=== PATIENT | female | born 1980 | race American Indian/Alaskan Native ===

== ENCOUNTER 2016-12-04 22:58 | Emergency (ER) | payer MEDICAID ==
[2016-12-04] MEDS ORDERED: HYDROmorphone 1 MG/ML Syringe IVPUSH ONE (23:25)
[2016-12-04] MEDS ORDERED: LORazepam 2 MG/ML MDV IVPUSH STA (23:26)
[2016-12-04] MEDS ORDERED: Sodium Chloride 0.9% 1,000 ML IV SCH (23:30)
[2016-12-04] MEDS ORDERED: Sodium Chloride 0.9% 10 ML Syringe FLUSH PRN (23:32)
[2016-12-04] MEDS ORDERED: Iopamidol 755 Mg/ML 100 ML Bottle IV SCH (23:45)
[2016-12-04] MEDS ORDERED: Sodium Chloride 0.9% 100 ML IV SCH (23:45)
[2016-12-05] MEDS ORDERED: Ketorolac 30 MG/ML SDV IVPUSH ONE ×2 (00:45→04:00)
[2016-12-05] MEDS ORDERED: Lactated Ringers 1,000 ML IV SCH (01:00)
[2016-12-05 03:28] VITALS: BP 127/73
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
== END 2016-12-05 04:36 | disposition home or self-care (01) ==
LOC: JP.ED 22:58
DX: R07.89 Other chest pain (principal); D64.9 Anemia, unspecified; R01.1 Cardiac murmur, unspecified; F41.9 Anxiety disorder, unspecified; F43.10 Post-traumatic stress disorder, unspecified; F17.200 Nicotine dependence, unspecified, uncomplicated; Z88.1 Allergy status to other antibiotic agents; Z79.899 Other long term (current) drug therapy
CPT/HCPCS: 36415; 71275; 80053; 80305; 81001; 81025; 82803; 83605; 84484; 85025; 86140; 93005; 96361; 96374; 96375; 96376; 99285; G0480; J1170; J1885; J2060; J7030; J7040; J7050; J7120; Q9967

== ENCOUNTER 2016-12-22 11:50 | Emergency (ER) | payer MEDICAID ==
[2016-12-22 12:04] VITALS: BP 132/87
--- NOTE | 2016-12-22 12:49 | EDM.PDOC ---
ED HPI LOWER BACK PAIN/INJURY - General Chief Complaint: Back Pain or Injury Stated Complaint: LEFT LEG PAIN Time Seen by Provider: 12/22/16 12:38 Source: Reports: Patient History Limitations: Reports: No limitations - History of Present Illness INITIAL COMMENTS - FREE TEXT/NARRATIVE: This patient came in complaining of leg pain. I walked into the room and she said, " oh it's you!" She asked if I was going to help her. Ice told her that I would check her over but I wasn't going to give her any narcotics. Please review my previous note on this patient. The patient said if not going to give her pain pills and she's going to go and seek some other doctor who will give her pain medicines. 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 Psychiatric History: Reports: Anxiety, PTSD - Past Surgical History Musculoskeletal Surgical History: Reports: ORIF Other Musculoskeletal Surgeries/Procedures:: left leg Social & Family History - Tobacco Use Smoking Status *Q: Current Every Day Smoker Years of Tobacco use: 3 Packs/Tins Daily: 3 Used Tobacco, but Quit: No Second Hand Smoke Exposure: Yes - Caffeine Use Caffeine Use: Reports: Coffee - Recreational Drug Use Recreational Drug Use: No ED ROS GENERAL - Review of Systems Review Of Systems: Unable To Obtain ED EXAM,LOWER BACK PAIN/INJURY - Physical Exam Exam: See Below Exam Limited By: Other (This patient did not want to be examined) General Appearance: alert, WD/WN, no apparent distress (She does not appear to be in any pain) Neurological: other (She was observed to be moving all extremities) Course - Vital Signs Last Recorded V/S: Last Vital Signs Temp 37.1 C 12/22/16 12:03 Pulse 76 12/22/16 12:03 Resp 18 12/22/16 12:03 BP 132/87 12/22/16 12:03 Pulse Ox Departure - Departure Time of Disposition: 12:48 Disposition: Home, Self-Care 01 Condition: fair Clinical Impression: Leg pain Forms: ED Department Discharge Additional Instructions: Continue using your regular medications. Followup with your doctor of choice for pain medications.
== END 2016-12-22 12:45 | disposition home or self-care (01) ==
LOC: JP.ED 11:50
DX: M79.605 Pain in left leg (principal); R01.1 Cardiac murmur, unspecified; F41.9 Anxiety disorder, unspecified; F17.210 Nicotine dependence, cigarettes, uncomplicated; Z88.1 Allergy status to other antibiotic agents; Z79.899 Other long term (current) drug therapy
CPT/HCPCS: 99283

== ENCOUNTER 2017-01-09 17:28 | Emergency (ER) | payer MEDICAID ==
[2017-01-09 17:41] VITALS: BP 129/54
[2017-01-09] MEDS ORDERED: Ketorolac 60 MG/2 ML SDV IM ONE (18:11)
--- NOTE | 2017-01-09 18:16 | EDM.PDOC ---
[id number] LEG HURTS NOT AN ACCIDENT Time Seen by Provider: 01/09/17 18:11 Source: Reports: Patient History Limitations: Reports: No limitations - History of Present Illness INITIAL COMMENTS - FREE TEXT/NARRATIVE: Pt arrived with sig left knee pain. Occurred When: other ( This has continued to be painful. She had surgery on the knee about 2 years ago and she has metal in her knee. 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 Psychiatric History: Reports: Anxiety, PTSD - Past Surgical History Musculoskeletal Surgical History: Reports: ORIF Other Musculoskeletal Surgeries/Procedures:: left leg Social & Family History - Tobacco Use Smoking Status *Q: Never Smoker Years of Tobacco use: 3 Packs/Tins Daily: 3 Used Tobacco, but Quit: No Second Hand Smoke Exposure: Yes - Caffeine Use Caffeine Use: Reports: Coffee, Energy drinks - Recreational Drug Use Recreational Drug Use: No Review of Systems - Review of Systems Review Of Systems: See Below Constitutional: Reports: no symptoms Eyes: Reports: no symptoms Ears: Reports: no symptoms Nose: Reports: no symptoms Mouth/Throat: Reports: no symptoms Respiratory: Reports: No Symptoms Cardiovascular: Reports: no symptoms GI/Abdominal: Reports: No symptoms Genitourinary: Reports: no symptoms Musculoskeletal: Reports: other (Pain in the left knee) Skin: Reports: no symptoms Trauma Exam - Physical Exam Exam: See Below Text/Narrative:: pt developed pain in the left knee tht is the most severe it has lg in a long time. She may have twisted this in the kitchen. She has not fallen or injured this otherwise. Exam Limited By: No limitations General Appearance: Reports: alert, moderate distress Head: Reports: atraumatic Ears: Reports: normal TMs Nose: Reports: normal inspection Throat/Mouth: Reports: Normal inspection Neck: Reports: non-tender Respiratory Exam: Reports: no respiratory distress Extremities: Reports: other ( left knee is very uncomfortable. This is most tender in the anterior proximal tibia. She is also having pain in post knee area. ) Course - Vital Signs Last Recorded V/S: Last Vital Signs Temp 37.0 C 01/09/17 17:40 Pulse 69 01/09/17 17:40 Resp 18 01/09/17 17:40 BP 129/54 L 01/09/17 17:40 Pulse Ox 98 01/09/17 17:40 - Orders/Labs/Meds Meds: Medications Discontinued Medications Generic Name Dose Route Start Last Admin Trade Name Bhumi PRN Reason Stop Dose Admin Ketorolac Tromethamine 60 mg 01/09/17 18:11 01/09/17 18:17 Toradol IM 01/09/17 18:12 60 mg ONETIME ONE Administration Oxycodone/Acetaminophen 1 tab 01/09/17 18:48 01/09/17 18:53 Percocet 325-5 Mg PO 01/09/17 18:49 1 tab ONETIME ONE Administration - Re-Assessments/Exams Free Text/Narrative Re-Assessment/Exam: 01/09/17 18:53 The pt was xrayed and she seemes to have ok alignment of the hardware in the knee. Departure - Departure Time of Disposition: 18:54 Disposition: Home, Self-Care 01 Condition: fair Clinical Impression: Left anterior knee pain Instructions: Knee Pain Referrals: PCP,None [Primary Care Provider] - Forms: ED Department Discharge Care Plan Goals: moist packs --warm to the knee, percocet 5/325 q6h prn for pain, motrin 600mg tid. Appt with Dr Carl Roy
[2017-01-09] MEDS ORDERED: Acetaminophen/oxyCODONE 325-5 MG Tab PO ONE (18:48)
--- NOTE | 2017-01-10 08:45 | CR ---
Knee Min 4V Lt HISTORY: pain in knee COMPARISON: 10/27/2016 FINDINGS: No fracture or dislocation is identified. Old plate and screw fixation proximal tibia is s table. No hardware complication can be seen. There is no joint space narrowing or hypertrophic andino es. Bony structures are diffusely osteopenic. I see no joint effusion. IMPRESSION: Old internal fixation proximal tibia. Generalized osteopenia. No acute left knee abnorma lity or significant interval change is identified.
== END 2017-01-09 19:10 | disposition home or self-care (01) ==
LOC: JP.ED 17:28
DX: M25.562 Pain in left knee (principal); R01.1 Cardiac murmur, unspecified; F41.9 Anxiety disorder, unspecified; Z88.1 Allergy status to other antibiotic agents
CPT/HCPCS: 73564; 96372; 99284; A9270; J1885

== ENCOUNTER 2017-01-16 23:43 | Emergency (ER) | payer MEDICAID ==
[2017-01-17 00:08] VITALS: BP 118/71
[2017-01-17] MEDS ORDERED: Lidocaine 4% Top Soln 4 ML LTA Syringe TOP ONE (00:17)
[2017-01-17] MEDS ORDERED: Lidocaine 4% Top Soln 50 ML Bottle MUCMEM ONE (00:23)
--- NOTE | 2017-01-17 00:23 | EDM.PDOC ---
ED HPI ENT - General Chief Complaint: ENT Problem Stated Complaint: EARACHE Time Seen by Provider: 01/17/17 00:13 Source: Reports: Patient, RN notes reviewed History Limitations: Reports: No limitations - History of Present Illness INITIAL COMMENTS - FREE TEXT/NARRATIVE: 36-year-old female presents emergency department a complaint of right ear pain, has been going on for 24 hours she describes no fevers no drainage - Related Data Allergies/ADRs: Allergies Allergy/AdvReac Type Severity Reaction Status Date / Time amoxicillin Allergy Hives Verified 01/17/17 00:08 Home Meds: Home Meds Gabapentin [Neurontin] 300 mg PO TID 08/17/16 [History] Gabapentin [Neurontin] 600 mg PO BEDTIME 12/04/16 [History] Past Medical History HEENT History: Reports: Hard of hearing, Impaired vision Cardiovascular History: Reports: Heart murmur 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 Psychiatric History: Reports: Anxiety, PTSD - Infectious Disease History Infectious Disease History: Reports: Chicken pox - Past Surgical History Musculoskeletal Surgical History: Reports: ORIF Other Musculoskeletal Surgeries/Procedures:: left leg Social & Family History - Tobacco Use Smoking Status *Q: Never Smoker Years of Tobacco use: 3 Packs/Tins Daily: 3 Used Tobacco, but Quit: No Second Hand Smoke Exposure: No - Caffeine Use Caffeine Use: Reports: Coffee - Recreational Drug Use Recreational Drug Use: Yes ED ROS ENT - Review of Systems Review Of Systems: See Below Constitutional: Denies: fever HEENT: Reports: Ear pain. Denies: Ear discharge Respiratory: Reports: No Symptoms Cardiovascular: Reports: No symptoms ED EXAM, ENT - Physical Exam Exam: See Below Exam Limited By: Intoxication General Appearance: alert, WD/WN, no apparent distress Ears: normal external exam, normal TMs (Last), canal swelling (Right) Nose: normal inspection, normal mucousa, no blood Mouth/Throat: Normal inspection, Normal gums, Normal lips, Normal oropharynx, Normal teeth Head: atraumatic, normocephalic Neck: normal inspection, supple, non-tender, full range of motion Respiratory/Chest: no respiratory distress, lungs clear, normal breath sounds, no accessory muscle use Cardiovascular: regular rate, rhythm, systolic murmur Course - Vital Signs Last Recorded V/S: Last Vital Signs Temp 98.1 F 04/11/17 00:05 Pulse 60 01/17/17 00:05 Resp 16 01/17/17 00:05 BP 118/71 01/17/17 00:05 Pulse Ox 95 01/17/17 00:05 - Orders/Labs/Meds Orders: Active Orders 24 hr Category Date Time Status Lidocaine 4% Top Soln Med 01/17/17 00:17 Once 4 ml TOP ONETIME ONE Medication Orders Lidocaine (Lidocaine 4% Top Soln) 4 ml TOP ONETIME ONE Stop: 01/17/17 00:18 Meds: Medications Generic Name Dose Route Start Last Admin Trade Name Frekem PRN Reason Stop Dose Admin Lidocaine 4 ml 01/17/17 00:17 Lidocaine 4% Top Soln TOP 01/17/17 00:18 ONETIME ONE Departure - Departure Time of Disposition: 00:22 Disposition: Home, Self-Care 01 Condition: good Clinical Impression: Otitis externa Qualifiers: Otitis externa type: diffuse Laterality: right Chronicity: acute Qualified Code (s): H60.311 - Diffuse otitis externa, right ear Forms: ED Department Discharge Additional Instructions: Use lidocaine as needed for pain control, take full course of antibiotics, Please followup with your primary care provider in 3-5 days if not better, please call return to the emergency department with worsening of symptoms. - My Orders Last 24 Hours: My Active Orders 01/17/17 00:17 Lidocaine 4% Top Soln 4 ml TOP ONETIME ONE - Assessment/Plan Last 24 Hours: My Active Orders 01/17/17 00:17 Lidocaine 4% Top Soln 4 ml TOP ONETIME ONE Plan: Assessment Acuity = acute Site and laterality = right otitis externa Etiology = unclear etiology Manifestations = pain Location of injury = home Lab values = none Plan Topical lidocaine used for pain control prescription written for Corticosporin otic follow up with primary care in 3-5 days for reevaluation Patient was in agreement with the plan all questions were answered, they were instructed to return to the emergency department or call for worsening symptoms. This note was dictated using [employer] voice recognition software please call with any questions.
== END 2017-01-17 00:45 | disposition home or self-care (01) ==
LOC: JP.ED 23:43
DX: H60.311 Diffuse otitis externa, right ear (principal); F41.9 Anxiety disorder, unspecified; R01.1 Cardiac murmur, unspecified; Z88.1 Allergy status to other antibiotic agents
CPT/HCPCS: 99283; A9270

== ENCOUNTER 2017-02-20 13:26 | Emergency (ER) | payer MEDICAID ==
[2017-02-20 13:52] VITALS: BP 139/86
[2017-02-20] MEDS ORDERED: Ketorolac 60 MG/2 ML SDV IM ONE (13:59)
--- NOTE | 2017-02-20 14:06 | EDM.PDOC ---
ED HPI GENERAL MEDICAL PROBLEM - General Chief Complaint: Respiratory Problem Stated Complaint: CHEST CONGESTION, COUGH Time Seen by Provider: 02/20/17 13:55 Source of Information: Reports: Patient History Limitations: Reports: No Limitations - History of Present Illness INITIAL COMMENTS - FREE TEXT/NARRATIVE: Pt reports 8 day hx of worsening cold symptoms. States evaluated last week at [facility], had strep test due to sore throat and no other treatment. Reports left sided sore throat continues, cough worsening today and chest hurts when coughing as does back. After this is addressed, pt then states she has left knee pain, chronic in nature, waiting for surgery in [place] and followed by an orthopedist. She is not sure of surgery date, states she needs 'something for her knee' and her orthopedic provider told her to come to the ER for an Rx. She does not have any detail of what is wrong with her knee, unsure of surgery needed or date. Is already on gabapentin. States has not taken anything for her pain this AM. 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 - Related Data Allergies Allergy/AdvReac Type Severity Reaction Status Date / Time amoxicillin Allergy Hives Verified 01/17/17 00:08 Home Meds: Home Meds Gabapentin [Neurontin] 300 mg PO TID 08/17/16 [History] Gabapentin [Neurontin] 600 mg PO BEDTIME 12/04/16 [History] Acetaminophen [Tylenol] 650 mg PO Q6H PRN 02/20/17 [History] Naproxen [Naprosyn] 1 tab PO DAILY PRN 02/20/17 [History] Past Medical History HEENT History: Reports: Hard of Hearing, Impaired Vision Cardiovascular History: Reports: Heart Murmur Respiratory History: Reports: Asthma Gastrointestinal History: 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 Psychiatric History: Reports: Anxiety, PTSD - Infectious Disease History Infectious Disease History: Reports: Chicken Pox - Past Surgical History Musculoskeletal Surgical History: Reports: ORIF Other Musculoskeletal Surgeries/Procedures:: left leg Social & Family History - Tobacco Use Smoking Status *Q: Former Smoker Years of Tobacco use: 20 Packs/Tins Daily: 1 Used Tobacco, but Quit: Yes Month Tobacco Last Used: march Second Hand Smoke Exposure: No - Caffeine Use Caffeine Use: Reports: Coffee - Recreational Drug Use Recreational Drug Use: No ED ROS GENERAL - Review of Systems Review Of Systems: ROS reveals no pertinent complaints other than HPI. ED EXAM, GENERAL - Physical Exam Exam: See Below Exam Limited By: No Limitations General Appearance: Alert, No Apparent Distress (speaks full sentences and answers questions asked.) Eye Exam: Bilateral Eye: PERRL Ears: Normal External Exam, Normal Canal, Hearing Grossly Normal, Normal TMs Nose: Normal Inspection, Clear Rhinorrhea (clear post nasal drainage) Throat/Mouth: Normal Inspection, Normal Lips (post nasal drainage) Head: Atraumatic, Normocephalic Neck: Normal Inspection, Non-Tender, Full Range of Motion. No: Lymphadenopathy (R), Lymphadenopathy (L) Respiratory/Chest: No Respiratory Distress, Lungs Clear, Normal Breath Sounds, No Accessory Muscle Use, Other (anterior and posterior chest tender to palpation and light touch with stethoscope but still takes deep breaths) Extremities: Normal Inspection, Other (pt has left knee elevated on pillow but moves on ER cot without concerns independently.). No: Pedal Edema Neurological: Alert, Oriented (answers all questions asked) Psychiatric: Normal Mood, Flat Affect Skin Exam: Warm, Dry, Intact, Normal Color, No Rash Course - Vital Signs Last Recorded V/S: Last Vital Signs Temp 36.9 C 02/20/17 13:51 Pulse 77 02/20/17 13:51 Resp 16 02/20/17 13:51 BP 139/86 02/20/17 13:51 Pulse Ox 98 02/20/17 13:51 - Orders/Labs/Meds Labs: Pt declined rapid strep test despite complaint of sore throat. Meds: Medications Discontinued Medications Generic Name Dose Route Start Last Admin Trade Name Freq PRN Reason Stop Dose Admin Ketorolac Tromethamine 60 mg 02/20/17 13:59 02/20/17 14:05 Toradol IM 02/20/17 14:00 60 mg ONETIME ONE Administration Departure - Departure Time of Disposition: 14:05 Disposition: Home, Self-Care 01 Condition: good Clinical Impression: Sore throat, Bronchitis Chronic leg pain Qualifiers: Laterality: left Qualified Code(s): M79.605 - Pain in left leg - Discharge Information Instructions: Acute Bronchitis, [id number] Referrals: PCP,None [Primary Care Provider] - Forms: ED Department Discharge Additional Instructions: 1. Zithromax Z-negrito for ongoing upper respiratory illness. 2. You may use tylenol or ibuprofen for your pain symptoms. 3. You will need to contact your Primary Care Provider or Orthopedic provider for medication refill for your left knee pain which you stated was being handled by another provider currently. - Problem List & Annotations (1) Sore throat SNOMED Code(s): 605312574 Code(s): J02.9 - ACUTE PHARYNGITIS, UNSPECIFIED Status: Acute Priority: Medium Current Visit: Yes (2) Bronchitis SNOMED Code(s): 71279443 Code(s): J40 - BRONCHITIS, NOT SPECIFIED ACUTE OR CHRONIC Status: Acute Priority: Medium Current Visit: Yes (3) Chronic leg pain SNOMED Code(s): 07172128 Code(s): M79.606 - PAIN IN LEG, UNSPECIFIED; G89.29 - OTHER CHRONIC PAIN Status: Chronic Priority: Medium Current Visit: Yes Qualifiers: Laterality: left Qualified Code(s): M79.605 - Pain in left leg; G89.29 - Other chronic pain - Problem List Review Problem List Initiated/Reviewed/Updated: Yes
== END 2017-02-20 14:26 | disposition home or self-care (01) ==
LOC: JP.ED 13:26
DX: J02.9 Acute pharyngitis, unspecified (principal); J40 Bronchitis, not specified as acute or chronic; M79.605 Pain in left leg; Z98.890 Other specified postprocedural states; Z87.891 Personal history of nicotine dependence; Z79.899 Other long term (current) drug therapy; Z88.1 Allergy status to other antibiotic agents
CPT/HCPCS: 96372; 99283; J1885

== ENCOUNTER 2017-04-21 17:09 | Emergency (ER) | payer MEDICAID ==
[2017-04-21 17:29] VITALS: BP 118/66
[2017-04-21] MEDS ORDERED: Ketorolac 60 MG/2 ML SDV IM ONE (18:09)
--- NOTE | 2017-04-21 18:14 | EDM.PDOC ---
ED HPI GENERAL MEDICAL PROBLEM - General Chief Complaint: Lower Extremity Injury/Pain Stated Complaint: LOW BACK PAIN RADIATING DOWN LEFT LEG Time Seen by Provider: 04/21/17 18:06 Source of Information: Reports: Patient, Old Records, RN Notes Reviewed History Limitations: Reports: No Limitations - History of Present Illness INITIAL COMMENTS - FREE TEXT/NARRATIVE: 37-year-old female presents emergency department day complaint of low back pain with pain radiating down to her left leg. 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 Psychiatric History: Reports: Anxiety, PTSD - Infectious Disease History Infectious Disease History: Reports: Chicken Pox - Past Surgical History Musculoskeletal Surgical History: Reports: ORIF Other Musculoskeletal Surgeries/Procedures:: left leg Social & Family History - Tobacco Use Smoking Status *Q: Never Smoker Years of Tobacco use: 20 Packs/Tins Daily: 1 Used Tobacco, but Quit: Yes Month Tobacco Last Used: march Second Hand Smoke Exposure: No - Caffeine Use Caffeine Use: Reports: Coffee, Soda, Tea - Recreational Drug Use Recreational Drug Use: No Review of Systems - Review of Systems Review Of Systems: See Below Constitutional: Reports: No Symptoms GI/Abdominal: Reports: No Symptoms Musculoskeletal: Reports: Back Pain ED EXAM, GENERAL - Physical Exam Exam: See Below Exam Limited By: No Limitations General Appearance: Alert, WD/WN, No Apparent Distress Respiratory/Chest: No Respiratory Distress Back Exam: Normal Inspection, Decreased Range of Motion. No: CVA Tenderness (R) , CVA Tenderness (L), Muscle Spasm, Paraspinal Tenderness, Vertebral Tenderness Extremities: Other (Positive straight leg test on the left) Course - Vital Signs Last Recorded V/S: Last Vital Signs Temp 98.6 F 04/21/17 17:42 Pulse 87 04/21/17 17:42 Resp 16 04/21/17 17:42 BP 118/66 04/21/17 17:42 Pulse Ox 97 04/21/17 17:42 - Orders/Labs/Meds Meds: Medications Discontinued Medications Generic Name Dose Route Start Last Admin Trade Name Bhumi PRN Reason Stop Dose Admin Ketorolac Tromethamine 60 mg 04/21/17 18:09 04/21/17 18:19 Toradol IM 04/21/17 18:10 60 mg ONETIME ONE Administration Departure - Departure Time of Disposition: 19:18 Disposition: Home, Self-Care 01 Condition: Good Clinical Impression: Sciatica Qualifiers: Laterality: left Qualified Code(s): M54.32 - Sciatica, left side - Discharge Information Forms: ED Department Discharge Additional Instructions: Use ibuprofen for baseline pain control, use hydrocodone for breakthrough pain, please follow-up with your primary care provider and consider referral to physical therapy - Assessment/Plan Plan: Assessment Acuity = acute Site and laterality = sciatica Etiology = unclear etiology Manifestations = pain Location of injury = Home Lab values = none Plan: She had good relief with the Toradol injection plan is discharge home with hydrocodone No. 10 followed by physical therapy she'll follow-up with her primary care Patient was in agreement with the plan all questions were answered, they were instructed to return to the emergency department or call for worsening symptoms. This note was dictated using [employer] voice recognition software please call with any questions.
== END 2017-04-21 19:54 | disposition home or self-care (01) ==
LOC: JP.ED 17:09
DX: M54.32 Sciatica, left side (principal); J45.909 Unspecified asthma, uncomplicated; Z98.890 Other specified postprocedural states; Z87.891 Personal history of nicotine dependence; Z88.1 Allergy status to other antibiotic agents
CPT/HCPCS: 96372; 99283; J1885

== ENCOUNTER 2017-05-14 09:57 | Emergency (ER) | payer MEDICAID ==
[2017-05-14 10:12] VITALS: BP 119/65
--- NOTE | 2017-05-14 10:13 | EDM.PDOC ---
[id number] 4d CHEST PAINS FOR 2 DAYS Time Seen by Provider: 05/14/17 10:00 Source of Information: Reports: Patient History Limitations: Reports: No Limitations - History of Present Illness INITIAL COMMENTS - FREE TEXT/NARRATIVE: 37-year-old female with known history of methamphetamine abuse woke this morning feeling like her heart was hurting, left side of her body felt numb and then her lips became numb. She became very anxious and came in to be evaluated. O2 saturations are 100%, she is in a normal sinus rhythm and appears anxious. An EKG was done which showed no acute ST changes. She has pain with raising her left arm, she's also vomited several times yesterday and having intermittent mild headaches. Onset: Unknown/Unsure (At least over the last 2-3 days) Severity: Mild Associated Symptoms: Reports: Cough, Headaches, Malaise, Nausea/Vomiting, Shortness of Breath. 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 Psychiatric History: Reports: Anxiety, PTSD - Infectious Disease History Infectious Disease History: Reports: Chicken Pox - Past Surgical History Musculoskeletal Surgical History: Reports: ORIF Other Musculoskeletal Surgeries/Procedures:: left leg Social & Family History - Tobacco Use Smoking Status *Q: Never Smoker Years of Tobacco use: 20 Packs/Tins Daily: 1 Used Tobacco, but Quit: Yes Month Tobacco Last Used: march Second Hand Smoke Exposure: No - Caffeine Use Caffeine Use: Reports: Coffee, Soda, Tea - Recreational Drug Use Recreational Drug Use: No ED ROS GENERAL - Review of Systems Review Of Systems: See Below Constitutional: Reports: Malaise. Denies: Fever, Chills HEENT: Reports: No Symptoms Respiratory: Reports: Shortness of Breath, Cough Cardiovascular: Reports: Chest Pain GI/Abdominal: Reports: Nausea, Vomiting. Denies: Abdominal Pain : Reports: No Symptoms Musculoskeletal: Reports: Shoulder Pain (Left shoulder aches) Skin: Reports: No Symptoms Neurological: Reports: Headache Psychiatric: Reports: Anxiety ED EXAM, GENERAL - Physical Exam Exam: See Below Exam Limited By: No Limitations General Appearance: Alert, Anxious Eye Exam: Bilateral Eye: EOMI, Normal Inspection Respiratory/Chest: No Respiratory Distress, Lungs Clear, Other (Chest is tender to palpation over the left costochondral area) Cardiovascular: Regular Rate, Rhythm GI/Abdominal: Non-Tender Neurological: Alert, Oriented, No Motor/Sensory Deficits Psychiatric: Anxious Skin Exam: Warm, Dry EKG INTERPRETATION Rhythm: NSR Course - Vital Signs Last Recorded V/S: Last Vital Signs Temp 97.8 F 05/14/17 10:09 Pulse 80 05/14/17 10:09 Resp 18 05/14/17 10:09 BP 119/65 05/14/17 10:09 Pulse Ox 99 05/14/17 10:09 - Orders/Labs/Meds Orders: Active Orders 24 hr Category Date Time Status EKG Documentation Completion [RC] ASDIRECTED Care 05/14/17 10:10 Active EKG 12 Lead [EK] Routine Ther 05/14/17 10:10 Ordered Labs: Laboratory Tests 05/14/17 05/14/17 05/14/17 Range/Units 10:21 10:21 11:12 WBC 8.6 (4.5-11.0) K/uL RBC 4.81 (3.30-5.50) M/uL Hgb 9.7 L (12.0-15.0) g/dL Hct 33.2 L (36.0-48.0) % MCV 69 L (80-98) fL MCH 20 L (27-31) pg MCHC 29 L (32-36) % Plt Count 411 H (150-400) K/uL Neut % (Auto) 59 (36-66) % Lymph % (Auto) 29 (24-44) % Wilcox % (Auto) 9 H (2-6) % Eos % (Auto) 3 (2-4) % Baso % (Auto) 0 (0-1) % Sodium 143 (140-148) mmol/L Potassium 4.2 (3.6-5.2) mmol/L Chloride 109 H (100-108) mmol/L Carbon Dioxide 27 (21-32) mmol/L Anion Gap 11.2 (5.0-14.0) mmol/L BUN 10 (7-18) mg/dL Creatinine 0.8 (0.6-1.0) mg/dL Est Cr Clr Drug Dosing 87.48 mL/min Estimated GFR (MDRD) > 60 (>60) Glucose 88 (74-106) mg/dL Calcium 8.2 L (8.5-10.1) mg/dL Troponin I < 0.017 (0.000-0.056) ng/mL Urine Opiates Screen Negative (NEGATIVE) Ur Oxycodone Screen Negative (NEGATIVE) Urine Methadone Screen Negative (NEGATIVE) Ur Propoxyphene Screen Negative (NEGATIVE) Ur Barbiturates Screen Negative (NEGATIVE) Ur Tricyclics Screen Negative (NEGATIVE) Ur Phencyclidine Scrn Negative (NEGATIVE) Ur Amphetamine Screen Negative (NEGATIVE) U Methamphetamines Scrn Positive H (NEGATIVE) Urine MDMA Screen Negative (NEGATIVE) U Benzodiazepines Scrn Negative (NEGATIVE) U Cocaine Metab Screen Negative (NEGATIVE) U Marijuana (THC) Screen Negative (NEGATIVE) - Re-Assessments/Exams Free Text/Narrative Re-Assessment/Exam: 05/14/17 10:45 EKG was normal, CBC BMP and troponin were obtained. We waited for a urine drug screen as this patient has a recurring history of methamphetamine abuse. 05/14/17 11:30 All blood tests were normal other than a stable chronic anemia. She was positive for methamphetamines however when she was able to give us a urine. I told her the symptoms could all be caused by methamphetamine abuse and encouraged her to stop. Departure - Departure Time of Disposition: 11:39 Disposition: Home, Self-Care 01 Condition: Good Clinical Impression: Methamphetamine abuse, Atypical chest pain - Discharge Information Instructions: Nonspecific Chest Pain Referrals: PCP,None [Primary Care Provider] - Forms: ED Department Discharge Care Plan Goals: You need to stop using methamphetamine, it will kill you. It also causes the symptoms you're experiencing. - My Orders Last 24 Hours: My Active Orders 05/14/17 10:10 EKG Documentation Completion [RC] ASDIRECTED EKG 12 Lead [EK] Routine - Assessment/Plan Last 24 Hours: My Active Orders 05/14/17 10:10 EKG Documentation Completion [RC] ASDIRECTED EKG 12 Lead [EK] Routine
== END 2017-05-14 11:40 | disposition home or self-care (01) ==
LOC: JP.ED 09:57
DX: F15.10 Other stimulant abuse, uncomplicated (principal); R07.89 Other chest pain; J45.909 Unspecified asthma, uncomplicated; Z88.1 Allergy status to other antibiotic agents; F41.9 Anxiety disorder, unspecified; Z98.890 Other specified postprocedural states
CPT/HCPCS: 36415; 80048; 80305; 84484; 85025; 93005; 99284-25

== ENCOUNTER 2017-06-15 15:27 | Emergency (ER) | payer MEDICAID ==
[2017-06-15] MEDS ORDERED: diphenhydrAMINE 50 MG/ML SDV IM ONE (15:56)
[2017-06-15] MEDS ORDERED: EPINEPHrine 1 MG/ML SDV IM ONE (15:56)
--- NOTE | 2017-06-15 15:59 | EDM.PDOC ---
ED HPI GENERAL MEDICAL PROBLEM - General Chief Complaint: Allergic Reaction Stated Complaint: STUNG BY BEE/ALLERGIC Time Seen by Provider: 06/15/17 15:54 Source of Information: Reports: Patient, Family, RN Notes Reviewed History Limitations: Reports: No Limitations - History of Present Illness INITIAL COMMENTS - FREE TEXT/NARRATIVE: 37-year-old female presents emergency department today with a reaction to bee sting she states she's supposed to carry an EpiPen but she does not have one she uses develops hives all over body she was stung on the right arm has an bed patch there but she feels like her throat is closing off difficult for her to breathe Right Upper Arm Pain Score (Numeric/FACES): 7 - Related Data Allergies Allergy/AdvReac Type Severity Reaction Status Date / Time amoxicillin Allergy Hives Verified 06/15/17 16:24 Home Meds: Home Meds Gabapentin [Neurontin] 600 mg PO TID 08/17/16 [History] Past Medical History HEENT History: Reports: Hard of Hearing, Impaired Vision Cardiovascular History: Reports: Heart Murmur 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 Psychiatric History: Reports: Anxiety, PTSD - Infectious Disease History Infectious Disease History: Reports: Chicken Pox - Past Surgical History Musculoskeletal Surgical History: Reports: ORIF Other Musculoskeletal Surgeries/Procedures:: left leg Social & Family History - Tobacco Use Smoking Status *Q: Never Smoker Years of Tobacco use: 20 Packs/Tins Daily: 1 Used Tobacco, but Quit: Yes Month Tobacco Last Used: march Second Hand Smoke Exposure: No - Caffeine Use Caffeine Use: Reports: Coffee, Soda, Tea - Recreational Drug Use Recreational Drug Use: No ED ROS ALLERGIC REACTION - Review of Systems Review Of Systems: See Below Constitutional: Reports: No Symptoms HEENT: Reports: Throat Pain, Throat Swelling Respiratory: Reports: Shortness of Breath Cardiovascular: Reports: No Symptoms GI/Abdominal: Reports: No Symptoms Skin: Reports: Wound ED EXAM GENERAL NO PERIP PULSE - Physical Exam Exam: See Below Exam Limited By: No Limitations General Appearance: Alert, WD/WN, No Apparent Distress Throat/Mouth: Normal Inspection, Normal Lips, Normal Teeth, Normal Gums, Normal Oropharynx, Normal Voice, No Airway Compromise Head: Atraumatic, Normocephalic Neck: Normal Inspection, Supple, Non-Tender, Full Range of Motion Respiratory/Chest: No Respiratory Distress, Lungs Clear, Normal Breath Sounds, No Accessory Muscle Use Cardiovascular: Regular Rate, Rhythm, No Murmur Course - Vital Signs Last Recorded V/S: Last Vital Signs Temp 98.8 F 06/15/17 15:45 Pulse 65 06/15/17 15:45 Resp 15 06/15/17 15:45 BP 142/78 H 06/15/17 15:45 Pulse Ox 99 06/15/17 15:45 - Orders/Labs/Meds Meds: Medications Discontinued Medications Generic Name Dose Route Start Last Admin Trade Name Bhumi PRN Reason Stop Dose Admin Diphenhydramine HCl 50 mg 06/15/17 15:56 06/15/17 16:13 Benadryl IM 06/15/17 15:57 50 mg ONETIME ONE Administration Epinephrine HCl 0.3 mg 06/15/17 15:56 06/15/17 16:12 Adrenalin 1:1000 IM 06/15/17 15:57 0.3 mg ONETIME ONE Administration Departure - Departure Time of Disposition: 17:21 Disposition: Home, Self-Care 01 Condition: Good Clinical Impression: Bee sting Qualifiers: Encounter type: initial encounter Injury intent: accidental or unintentional Qualified Code(s): T63.441A - Toxic effect of venom of bees, accidental ( unintentional), initial encounter - Discharge Information Referrals: Ayaka Cash NP [Primary Care Provider] - Forms: ED Department Discharge Additional Instructions: Use epinephrine as needed, Please followup with your primary care provider in 3 -5 days if not better, please call return to the emergency department with worsening of symptoms. - Assessment/Plan Plan: Assessment Acuity = acute Site and laterality = bee sting allergy Etiology = Bee venom Manifestations = none Location of injury = Home Lab values = none Plan She had good improvement combination Benadryl and epinephrine provided in the ED plan is discharge home with an EpiPen follow-up with primary care as needed Patient was in agreement with the plan all questions were answered, they were instructed to return to the emergency department or call for worsening symptoms. This note was dictated using [employer] voice recognition software please call with any questions.
[2017-06-15 17:28] VITALS: BP 127/62
== END 2017-06-15 17:29 | disposition home or self-care (01) ==
LOC: JP.ED 15:27
DX: T63.441A Toxic effect of venom of bees, accidental (unintentional), initial encounter (principal); J45.909 Unspecified asthma, uncomplicated; Z88.1 Allergy status to other antibiotic agents
CPT/HCPCS: 96372; 99283; J0171; J1200

== ENCOUNTER 2017-10-23 09:00 | Emergency (ER) | payer MEDICAID ==
[2017-10-23 09:13] VITALS: BP 116/69
[2017-10-23] MEDS ORDERED: Ketorolac 30 MG/ML SDV IVPUSH ONE (10:23)
[2017-10-23] MEDS ORDERED: Ketorolac 60 MG/2 ML SDV IM ONE (10:28)
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
--- NOTE | 2017-10-23 10:42 | CR ---
Ankle Min 3V Rt FINDINGS: There is normal alignment. There is no evidence of fracture. The ankle mortise appears inta ct. There is lateral soft tissue swelling. IMPRESSION: Lateral soft tissue swelling without evidence for fracture.
[2017-10-23] MEDS ORDERED: Gabapentin 300 MG Cap PO ONE (11:42)
[2017-10-23] MEDS ORDERED: Bacitracin Oint 1 GM U/D Packet TOP ONE (11:42)
[2017-10-23] MEDS ORDERED: LORazepam 0.5 MG Tab PO ONE (11:43)
== END 2017-10-23 12:11 | disposition hospice, inpatient (51) ==
LOC: JP.ED 09:00
DX: S91.011A Laceration without foreign body, right ankle, initial encounter (principal); Z88.1 Allergy status to other antibiotic agents; Z87.891 Personal history of nicotine dependence; Y04.0XXA Assault by unarmed brawl or fight, initial encounter
CPT/HCPCS: 12001; 36415; 73610; 80053; 80305; 81001; 81025; 85025; 96372; 96374; 99285; A9270; J1885

== ENCOUNTER 2017-10-28 21:36 | Emergency (ER) | payer MEDICAID ==
[2017-10-28 21:47] VITALS: BP 103/41
[2017-10-28] MEDS ORDERED: Sodium Chloride 0.9% 10 ML Syringe FLUSH PRN ×2 (22:56→23:31)
[2017-10-28] MEDS ORDERED: Sodium Chloride 0.9% 1,000 ML IV SCH (23:00)
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
[2017-10-28] MEDS ORDERED: Iopamidol 612 MG/ML 100 ML Bottle IV PRN (23:31)
[2017-10-28] MEDS ORDERED: Sodium Chloride 0.9% 100 ML IV SCH (23:45)
== END 2017-10-29 01:55 ==
LOC: JP.ED 21:36
DX: N83.202 Unspecified ovarian cyst, left side (principal); Z88.1 Allergy status to other antibiotic agents; Y04.0XXA Assault by unarmed brawl or fight, initial encounter
CPT/HCPCS: 36415; 70450; 72125; 74177; 80053; 80305; 81001; 81025; 83605; 83690; 85025; 96360; 96361; 99285; J7030; J7040; J7050; Q9967

== ENCOUNTER 2018-01-02 18:22 | Emergency (ER) | payer MEDICAID ==
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
[2018-01-02] MEDS ORDERED: HYDROmorphone 0.5 MG/0.5 ML Syringe IM ONE (19:56)
[2018-01-02 20:29] VITALS: BP 116/63
[2018-01-02] MEDS ORDERED: Ketorolac 30 MG/ML SDV IVPUSH ONE (20:48)
== END 2018-01-02 22:30 | disposition home or self-care (01) ==
LOC: JP.ED 18:22
DX: G43.909 Migraine, unspecified, not intractable, without status migrainosus (principal); D64.9 Anemia, unspecified; R74.8 Abnormal levels of other serum enzymes; H53.9 Unspecified visual disturbance; J45.909 Unspecified asthma, uncomplicated; Z88.1 Allergy status to other antibiotic agents; Z87.891 Personal history of nicotine dependence
CPT/HCPCS: 36415; 70450; 72125; 80053; 80305; 81001; 81025; 82728; 83690; 84443; 85025; 96372; 96374; 99284; G0480; J1170; J1885

== ENCOUNTER 2018-02-28 14:41 | Emergency (ER) | payer MEDICAID ==
[2018-02-28 15:16] VITALS: BP 113/47
[2018-02-28] MEDS ORDERED: LORazepam 1 MG Tab PO ONE (16:18)
--- NOTE | 2018-02-28 16:19 | EDM.PDOCBH ---
ED HPI GENERAL MEDICAL PROBLEM - General Chief Complaint: Behavioral/Psych Stated Complaint: MENTAL DISTRESS Time Seen by Provider: 02/28/18 16:02 Source of Information: Reports: Patient, RN Notes Reviewed History Limitations: Reports: No Limitations - History of Present Illness INITIAL COMMENTS - FREE TEXT/NARRATIVE: 38-year-old female presents to the emergency department for mental distress, she is very anxious she is currently going through a social situation she is from her children who are currently in [place], children were recently involved in a motor vehicle accident she is unable to be with them and has limited contact due to a recent custody lopes over the children - Related Data Allergies Allergy/AdvReac Type Severity Reaction Status Date / Time amoxicillin Allergy Hives Verified 01/02/18 19:00 Home Meds: Home Meds Gabapentin [Neurontin] 300 mg PO QID 08/17/16 [History] clonazePAM [Klonopin] 0.5 mg PO QID PRN 01/02/18 [History] Past Medical History HEENT History: Reports: Hard of Hearing, Impaired Vision Cardiovascular History: Reports: Heart Murmur Respiratory History: Reports: Asthma 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 Psychiatric History: Reports: Anxiety, PTSD - Infectious Disease History Infectious Disease History: Reports: Chicken Pox - Past Surgical History Musculoskeletal Surgical History: Reports: ORIF Other Musculoskeletal Surgeries/Procedures:: left leg Social & Family History - Tobacco Use Smoking Status *Q: Former Smoker Used Tobacco, but Quit: Yes Month/Year Tobacco Last Used: 02/2018 - Caffeine Use Caffeine Use: Reports: Coffee, Soda Other Caffeine Use: patient not answering questions at this time - Recreational Drug Use Recreational Drug Use: No ED ROS GENERAL - Review of Systems Review Of Systems: See Below Constitutional: Reports: No Symptoms Psychiatric: Reports: Agitation, Anxiety, Depression. Denies: Homicidal Ideation, Suicidal Ideation ED EXAM, BEHAVIORAL HEALTH - Physical Exam Exam: See Below Exam Limited By: No Limitations General Appearance: Alert, Mild Distress Respiratory/Chest: No Respiratory Distress Psychiatric: Alert, Restless, Tearful, Agitated, Poor Eye Contact, Pressured Speech. No: Inattentive, Non-Communicative, Suicidal Plan, Suicidal Thoughts, Tangential Thoughts, Auditory Hallucinations, Visual Hallucinations, Grandiose Thoughts, Paranoid Thoughts, Threatening Behavior COURSE, BEHAVIORAL HEALTH COMP - Course Vital Signs: Last Vital Signs Temp 98.7 F 02/28/18 15:19 Pulse 81 02/28/18 15:19 Resp 16 02/28/18 15:19 BP 113/47 L 02/28/18 15:19 Pulse Ox 98 02/28/18 15:19 Orders, Labs, Meds: Medications Discontinued Medications Generic Name Dose Route Start Last Admin Trade Name Bhumi PRN Reason Stop Dose Admin Lorazepam 1 mg 02/28/18 16:18 02/28/18 16:21 Ativan PO 02/28/18 16:19 1 mg ONETIME ONE Administration Departure - Departure Time of Disposition: 17:17 Disposition: Home, Self-Care 01 Condition: Fair Clinical Impression: Anxiety - Discharge Information Referrals: PCP,None [Primary Care Provider] - Forms: ED Department Discharge Additional Instructions: Use Ativan as needed to help control symptoms, Please followup with your primary care provider in 3-5 days if not better, please call return to the emergency department with worsening of symptoms. - Assessment/Plan Plan: Assessment Acuity = acute Site and laterality = generalized anxiety disorder with panic Etiology = secondary so situation Manifestations = none Location of injury = Home Lab values = none Plan Prescription written for Ativan 1 mg by mouth twice a day when necessary total # 10 follow-up with primary care 3-5 days if no improvement This note was dictated using [employer] voice recognition software please call with any questions on syntax or grammar.
== END 2018-02-28 17:25 | disposition home or self-care (01) ==
LOC: JP.ED 14:41
DX: F41.9 Anxiety disorder, unspecified (principal); Z88.1 Allergy status to other antibiotic agents; Z87.891 Personal history of nicotine dependence
CPT/HCPCS: 99285; A9270

== ENCOUNTER 2019-01-22 19:48 | Emergency (ER) | payer MEDICAID ==
[2019-01-22 20:12] VITALS: BP 105/62
--- NOTE | 2019-01-22 20:31 | EDM.PDOC ---
ED HPI GENERAL MEDICAL PROBLEM - General Chief Complaint: ENT Problem Stated Complaint: pain and anxiety meds Time Seen by Provider: 01/22/19 20:20 Source of Information: Reports: Patient, Old Records, RN History Limitations: Reports: No Limitations - History of Present Illness INITIAL COMMENTS - FREE TEXT/NARRATIVE: 38 yo female asking for something for pain and anxiety. She recently had dental extractions and the Tylenol #3 she was given made her itch. Needs something to replace this. Says she got into an argument with the dentist and after that she wouldn't give her any pain meds, told her to go to the ER. She claims she uses clonidine for anxiety and not Klonopin. Does not know the dose. Would like this refilled as well. Onset: Sudden Onset Date: 01/17/19 Duration: Day(s):, Improving Location: Reports: Face (upper mouth anteriorly) Quality: Reports: Dull Severity: Mild Improves with: Reports: Medication Worsens with: Reports: Other (no meds) Context: Reports: Other (see HPI) Associated Symptoms: Reports: Other (anxiety). 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 (see below) (none today) Oral/Mouth Pain Score (Numeric/FACES): 8 - Related Data Allergies Allergy/AdvReac Type Severity Reaction Status Date / Time amoxicillin Allergy Hives Verified 01/02/18 19:00 Home Meds: Home Meds Gabapentin [Neurontin] 300 mg PO QID 08/17/16 [History] clonazePAM [Klonopin] 0.5 mg PO QID PRN 01/02/18 [History] Past Medical History HEENT History: Reports: Hard of Hearing, Impaired Vision Cardiovascular History: Reports: Heart Murmur Respiratory History: Reports: Asthma Gastrointestinal History: Reports: None 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 Psychiatric History: Reports: Anxiety, PTSD - Infectious Disease History Infectious Disease History: Reports: Chicken Pox - Past Surgical History Musculoskeletal Surgical History: Reports: ORIF Other Musculoskeletal Surgeries/Procedures:: left leg Social & Family History - Tobacco Use Smoking Status *Q: Current Every Day Smoker Years of Tobacco use: 1 Packs/Tins Daily: 0.5 - Caffeine Use Caffeine Use: Reports: Coffee Other Caffeine Use: patient not answering questions at this time - Recreational Drug Use Recreational Drug Use: No ED ROS ENT - Review of Systems Review Of Systems: See Below Constitutional: Reports: No Symptoms HEENT: Reports: Other (mouth pain) Respiratory: Reports: No Symptoms Cardiovascular: Reports: No Symptoms Endocrine: Reports: No Symptoms GI/Abdominal: Reports: No Symptoms : Reports: No Symptoms Musculoskeletal: Reports: No Symptoms Skin: Reports: No Symptoms Neurological: Reports: No Symptoms Psychiatric: Reports: Anxiety ED EXAM, ENT - Physical Exam Exam: See Below Exam Limited By: No Limitations General Appearance: Alert, WD/WN, No Apparent Distress Eye Exam: Bilateral Eye: Normal Inspection Ears: Normal External Exam, Normal Canal, Hearing Grossly Normal, Normal TMs Nose: Normal Inspection, No Blood Mouth/Throat: Normal Inspection, Normal Lips, Normal Oropharynx, Dental Tenderness, Other (evidence of not quite healed mouth from dental extractions. No sign of infection. ). No: Drooling, Hoarse Voice, Lip Swelling, Lip Ulcers, Muffled Voice, Throat Pain, Throat Swelling, Tongue Swelling, Tonsillar Erythema , Tonsillar Exudates, Tonsillar Swelling, Uvular Deviation, Uvular Edema Head: Atraumatic, Normocephalic Extremities: Normal Inspection Neurological: Alert, Oriented, CN II-XII Intact, Normal Cognition, No Motor/ Sensory Deficits Psychiatric: Normal Affect, Normal Mood Skin: Warm, Dry, Intact, Normal Color, No Rash Lymphatic: No Adenopathy Course - Vital Signs Text/Narrative:: Ativan 1 mg po Last Recorded V/S: Last Vital Signs Temp 35.5 C 01/22/19 20:11 Pulse 73 01/22/19 20:11 Resp 16 01/22/19 20:11 BP 105/62 01/22/19 20:11 Pulse Ox 97 01/22/19 20:11 Departure - Departure Time of Disposition: 20:40 Disposition: Home, Self-Care 01 Condition: Good Clinical Impression: Pain, dental, Anxiety - Discharge Information *PRESCRIPTION DRUG MONITORING PROGRAM REVIEWED*: No *COPY OF PRESCRIPTION DRUG MONITORING REPORT IN PATIENT PORTER: No Instructions: Generalized Anxiety Disorder, Adult Referrals: PCP,None [Primary Care Provider] - Additional Instructions: Take [place] as directed for pain relief. See your doctor for additional pain meds and/or anxiety medications. No driving tonight.
[2019-01-22] MEDS: LORazepam 1 MG Tab PO ONE (20:33)
== END 2019-01-22 20:42 | disposition home or self-care (01) ==
LOC: JP.ED 19:48
DX: K08.89 Other specified disorders of teeth and supporting structures (principal); F41.9 Anxiety disorder, unspecified; F17.210 Nicotine dependence, cigarettes, uncomplicated; Z79.899 Other long term (current) drug therapy; Z88.1 Allergy status to other antibiotic agents
CPT/HCPCS: 99283; A9270

== ENCOUNTER 2020-02-20 12:26 | Inpatient (IN) | payer MEDICAID ==
[2020-02-20] MEDS ORDERED: Magnesium Sulfate/Water 100 ML ONE (13:12)
[2020-02-20] MEDS: Magnesium Sulfate/Water 2 GM in Premix Bag 1 BAG IV SCH ×2 (13:15→13:43)
[2020-02-20] MEDS ORDERED: Misoprostol 100 MCG Tab RECTAL PRN (13:31)
[2020-02-20] MEDS ORDERED: Misoprostol 200 MCG Tab RECTAL PRN (13:43)
[2020-02-20] MEDS: Magnesium Sulfate/Water 40 GM/1,000 ML BAG IV SCH (13:59)
--- NOTE | 2020-02-20 14:20 | US ---
OB Ltd 1 or More Fetus limited CLINICAL HISTORY: 35 week gestation, femur length FINDINGS: Real-time transabdominal images were obtained to the through the pelvis. There is a viable intrauterine at approximately 35 weeks. The femur length is 6.79 cm correlating to 35 week 1 day gestation IMPRESSION: Femur length is above
--- NOTE | 2020-02-20 15:07 | PCM.LDHP ---
L&D History of Present Illness - General Date of Service: 02/20/20 Admit Problem/Dx: Patient Status Order with Admit Dx/Problem 02/20/20 13:31 Patient Status [ADT] Routine Admission Diagnosis/Problem Admission Diagnosis/Problem labor Source of Information: Patient History Limitations: Reports: Altered Mental Status, Other (patient verbalizes that she is high on methamphetamine) - History of Present Illness Introduction:: 02/20/20 Elizabeth is a 39 yo who arrived via ambulance in labor. She has had no care this . She states she is a G9, denies previous births. She is unsure of a due date or how long she has been . She called the ambulance due to contractions and bleeding today. Reports leaking fluid since 0500 today with contractions starting then. She reports light bleeding since about noon. The bleeding is bright red and light, no clots. She denies abdominal pain between contractions. Reports movement. Denies alcohol use but does report she is high on methamphetamine and smoked last night. She falls asleep between conversations. She states her LMP she thinks was late August 2019 which would make her roughly 25 weeks . US was called immediately upon arrival. Femur length estimated to be approx 35 weeks. Speculum exam done initially with scant blood but did note advanced dilation. 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 BP elevated and with unknown status Magnesium was started along with fluid bolus. All labs collected at time of arrival. Associated Symptoms: Reports: vaginal bleeding. 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 Psychiatric History: Reports: Anxiety, PTSD - Infectious Disease History Infectious Disease History: Reports: Chicken Pox - Past Surgical History Musculoskeletal Surgical History: Reports: ORIF Other Musculoskeletal Surgeries/Procedures:: left leg Social & Family History - Caffeine Use Caffeine Use: Reports: Coffee Other Caffeine Use: patient not answering questions at this time H&P Review of Systems - Review of Systems: Review Of Systems: See Below General: Reports: No Symptoms HEENT: Reports: No Symptoms Pulmonary: Reports: No Symptoms Cardiovascular: Reports: No Symptoms Gastrointestinal: Reports: No Symptoms Genitourinary: Reports: No Symptoms Musculoskeletal: Reports: No Symptoms Skin: Reports: No Symptoms Psychiatric: Reports: Depression, Anxiety Neurological: Reports: Confusion, Other (fatigued) Hematologic/Lymphatic: Reports: No Symptoms Immunologic: Reports: No Symptoms L&D Exam - Exam Exam: See Below - Vital Signs Vital Signs: Last Vital Signs Temp 35.8 C L 02/20/20 13:20 Pulse 65 02/20/20 13:35 Resp 16 02/20/20 13:35 BP 132/91 H 02/20/20 13:35 Pulse Ox 96 02/20/20 13:35 - OB Specific Contraction Duration (sec): 40 Contraction Frequency (min): 2-3 Contraction Intensity: Moderate Presentation: Right Occiput Transverse (ROT) - Exam General: Lethargic HEENT: Conjunctiva Clear, Hearing Intact, Mucosa Moist & [place], Nares Patent, Other (pupils dilated) Neck: Supple, Trachea Midline Lungs: Clear to Auscultation, Normal Respiratory Effort Cardiovascular: Regular Rate, Regular Rhythm GI/Abdominal Exam: Normal Bowel Sounds, Soft Genitourinary: Normal external exam, Cervical dilitation, Enlarged uterus, Vaginal bleeding Back Exam: Normal Inspection, Full Range of Motion Extremities: Normal Inspection, Normal Range of Motion, Non-Tender, No Pedal Edema Skin: Warm, Dry, Intact Neurological: Reflexes Equal Bilateral Psychiatric: Alert, Normal Affect, Normal Mood - Patient Data Lab Results Last 24 hrs: Laboratory Results - last 24 hr 02/20/20 02/20/20 02/20/20 Range/Units 12:30 12:30 12:30 WBC 10.3 (4.5-11.0) K/uL RBC 4.09 (3.30-5.50) M/uL Hgb 7.3 L (12.0-15.0) g/dL Hct 27.0 L (36.0-48.0) % MCV 66 L (80-98) fL MCH 18 L (27-31) pg MCHC 27 L (32-36) % Plt Count 241 (150-400) K/uL Neut % (Auto) 71 H (36-66) % Lymph % (Auto) 25 (24-44) % Pike % (Auto) 4 (2-6) % Eos % (Auto) 0 L (2-4) % Baso % (Auto) 0 (0-1) % Sodium 135 L (140-148) mmol/L Potassium 3.7 (3.6-5.2) mmol/L Chloride 103 (100-108) mmol/L Carbon Dioxide 22 (21-32) mmol/L Anion Gap 13.7 (5.0-14.0) mmol/L BUN 7 (7-18) mg/dL Creatinine 0.8 (0.6-1.0) mg/dL Est Cr Clr Drug Dosing TNP Estimated GFR (MDRD) > 60 (>60) Glucose 73 L (74-106) mg/dL Uric Acid 3.1 (2.6-6.2) mg/dL Calcium 7.8 L (8.5-10.1) mg/dL Magnesium (1.8-2.4) mg/dL Total Bilirubin 0.3 (0.2-1.0) mg/dL AST 20 D (15-37) U/L ALT 20 D (12-78) U/L Alkaline Phosphatase 348 H D (46-116) U/L Lactate Dehydrogenase 224 (82-234) U/L Total Protein 7.0 (6.4-8.2) g/dL Albumin 2.4 L (3.4-5.0) g/dL Globulin 4.6 H (2.3-3.5) g/dL Albumin/Globulin Ratio 0.5 L (1.2-2.2) HIV-1 Ab Rapid Screen (NON-REACT.) Blood Type Gel Antibody Screen 02/20/20 02/20/20 02/20/20 Range/Units 12:30 12:32 12:32 WBC (4.5-11.0) K/uL RBC (3.30-5.50) M/uL Hgb (12.0-15.0) g/dL Hct (36.0-48.0) % MCV (80-98) fL MCH (27-31) pg MCHC (32-36) % Plt Count (150-400) K/uL Neut % (Auto) (36-66) % Lymph % (Auto) (24-44) % Pike % (Auto) (2-6) % Eos % (Auto) (2-4) % Baso % (Auto) (0-1) % Sodium (140-148) mmol/L Potassium (3.6-5.2) mmol/L Chloride (100-108) mmol/L Carbon Dioxide (21-32) mmol/L Anion Gap (5.0-14.0) mmol/L BUN (7-18) mg/dL Creatinine (0.6-1.0) mg/dL Est Cr Clr Drug Dosing Estimated GFR (MDRD) (>60) Glucose (74-106) mg/dL Uric Acid (2.6-6.2) mg/dL Calcium (8.5-10.1) mg/dL Magnesium 1.9 (1.8-2.4) mg/dL Total Bilirubin (0.2-1.0) mg/dL AST (15-37) U/L ALT (12-78) U/L Alkaline Phosphatase (46-116) U/L Lactate Dehydrogenase (82-234) U/L Total Protein (6.4-8.2) g/dL Albumin (3.4-5.0) g/dL Globulin (2.3-3.5) g/dL Albumin/Globulin Ratio (1.2-2.2) HIV-1 Ab Rapid Screen Non-reactive (NON-REACT.) Blood Type O POSITIVE Gel Antibody Screen Negative Result Diagrams: 02/20/20 12:30 02/20/20 12:30 - Problem List (1) delivery SNOMED Code(s): 775017428, 005343908 ICD Code: O60.10X0 - LABOR W DELIVERY, UNSP TRIMESTER, UNSP Status: Acute Current Visit: Yes (2) Vaginal delivery SNOMED Code(s): 534535463 ICD Code: O80 - ENCOUNTER FOR FULL-TERM UNCOMPLICATED DELIVERY Status: Acute Current Visit: Yes (3) Anemia SNOMED Code(s): 751941416 ICD Code: D64.9 - ANEMIA, UNSPECIFIED Status: Acute Current Visit: Yes Qualifiers: Anemia type: unspecified type Qualified Code(s): D64.9 - Anemia, unspecified (4) No care in current SNOMED Code(s): 044629074 ICD Code: O09.30 - SUPRVSN OF PREG W INSUFFICIENT ANTENAT CARE, UNSP TRIMESTER Status: Acute Current Visit: Yes (5) Methamphetamine abuse SNOMED Code(s): 882449772 ICD Code: F15.10 - OTHER STIMULANT ABUSE, UNCOMPLICATED Status: Chronic Current Visit: No Problem List Initiated/Reviewed/Updated: Yes Orders Last 24hrs: Active Orders 24 hr Category Date Time Status Patient Status [ADT] Routine ADT 02/20/20 13:31 Active Antiembolic Devices [RC] .Routine Care 02/20/20 13:33 Active Heart Tones [RC] PER UNIT ROUTINE Care 02/20/20 12:32 Active Non Stress Test [RC] Click to Edit Care 02/20/20 12:32 Active VTE/DVT Education [RC] Click to Edit Care 02/20/20 13:33 Active Vital Signs [RC] PER UNIT ROUTINE Care 02/20/20 12:32 Active Vital Signs [RC] PFP Care 02/20/20 13:31 Active Consult to Case Management/Spray Drier Operator Helper [CONS] Cons 02/20/20 13:31 Active Routine Regular Diet [DIET] Diet 02/20/20 Dinner Active CBC WITH AUTO DIFF [HEME] Routine Lab 02/20/20 17:00 Ordered CBC WITH AUTO DIFF [HEME] Routine Lab 02/21/20 06:00 Ordered HBSAG SCREEN Routine Lab 02/20/20 12:48 Received HCV ANTIBODY Routine Lab 02/20/20 12:48 Received HEP B SURFACE AB Routine Lab 02/20/20 12:48 Received PATIENT RETYPE [BBK] Stat Lab 02/20/20 12:32 Results RUBELLA ANTIBODIES, IGG Stat Lab 02/20/20 12:30 Received T PALLIDUM AB (FTA-AB) Routine Lab 02/20/20 12:48 Received TYPE AND SCREEN [BBK] Stat Lab 02/20/20 12:32 Results Acetaminophen [Tylenol] Med 02/20/20 13:31 Active 650 mg PO Q4H PRN Ibuprofen [Motrin] Med 05/14/20 13:31 Active 600 mg PO Q6H PRN Magnesium Sulfate/Water [Magnesium Sulfate in Water Med 02/20/20 14:00 Active Premix] 40 gm in 1,000 ml IV 50 mls/hr Oxytocin/Normal Saline [Pitocin in NS 20 Units/1,000 ML Med 02/20/20 13:30 Active ] 20 unit in 1,000 ml IV ASDIRECTED Assess Lochia [WOMSER] Per Unit Routine Oth 02/20/20 13:31 Ordered Assess Uterine Involution [WOMSER] Per Unit Routine Oth 02/20/20 13:31 Ordered DVT/VTE Prophylaxis Reflex [OM.PC] Routine Oth 02/20/20 13:31 Ordered Ice Therapy [OM.PC] Per Unit Routine Ot 02/20/20 13:33 Ordered PIH Panel [OM.PC] Stat Ot 02/20/20 12:32 Ordered Resuscitation Status Routine Resus Stat 02/20/20 13:31 Ordered Medication Orders Acetaminophen (Tylenol) 650 mg PO Q4H PRN PRN Reason: mild pain or fever Oxytocin/Sodium Chloride (Pitocin In Ns 20 Units/1,000 Ml) 20 unit in 1,000 mls @ 2,997 mls/hr IV ASDIRECTED KAELYN; Protocol Last Admin: 02/20/20 13:33 Dose: 999 munits/min, 2,997 mls/hr Magnesium Sulfate (Magnesium Sulfate In Water Premix) 40 gm in 1,000 mls @ 50 mls/hr IV .Q20H KAELYN Stop: 02/21/20 13:59 Last Admin: 02/20/20 13:59 Dose: 50 mls/hr Ibuprofen (Motrin) 600 mg PO Q6H PRN PRN Reason: mild pain or fever Assessment/Plan Comment:: 02/20/20 Assessment: on admission with no records available Complete upon check, admitted in active labor Unknown gestational age No care Plan: Imminent delivery upon arrival, baby will transfer to NICU, see labor delivery note for further
--- NOTE | 2020-02-20 15:33 | PCM.DEL ---
L & D Note - General Info Date of Service: 02/20/20 - Delivery Note Labor: Spontaneous Delivery Outcome: Livebirth Delivery Method: Spontaneous Vaginal Delivery-Single Delivery Mode: Spontaneous Presentation: Right Occiput Transverse (ROT) Nuchal Cord: Present Anesthesia Type: None Amniotic Fluid Description: Clear Episiotomy Type: None Laceration: None Placenta: Intact, Spontaneous Cord: 3 Vessels Estimated Blood Loss: 300 (ml) Resuscitation Needed: Yes Provider: Shari Kinney (see baby note) Score 1 min: 4 Score 5 min: 8 Second Stage Interventions: Reports: Second Nurse Assessed Progress of Descent, Second Nurse Reviewed Contraction Pattern, Second Nurse Reviewed Heart Tones, Encouragement Given, Pushing Effectively, Pushing, McRobert's Position Delivery Comments (Free Text/Narrative):: 02/20/20 39 yo delivered male infant vaginally. Mother was complete shortly after arrival to hospital with known methamphetamine use last night she states. She was bleeding lightly with no clots. Infant was delivered ROT with nuchal cord x 1 that was loose and easily reduced. The cord was immediately clamped and cut and baby was brought to warmer for evaluation. Baby appears between 32- 34 weeks. The placenta was delivered spontaneously with 3 vessel cord. Placenta intact but was delivered Jodie side and membranes were loose. The fundus is firm. Pitocin IV given and rectal cytotec also given due to unknown amount of bleeding at home and low hemoglobin. No cervical, vaginal, or perineal lacerations. Male infant weighs 4 lb 11 oz, 17 in long. scores 4, 8. See baby note for further. EBL 300 ml Stages of labor: first stage unknown, patient states around 0500 today-complete at 1257 2nd stage: 7664-5644 3rd stage: 7932-2479 - General Info Date of Service: 02/20/20 Functional Status: Reports: Pain Controlled - Review of Systems General: Reports: No Symptoms HEENT: Reports: No Symptoms Pulmonary: Reports: No Symptoms Cardiovascular: Reports: No Symptoms Gastrointestinal: Reports: No Symptoms Genitourinary: Reports: No Symptoms Musculoskeletal: Reports: No Symptoms Skin: Reports: No Symptoms Neurological: Reports: Confusion Psychiatric: Reports: No Symptoms - Patient Data Vitals - Most Recent: Last Vital Signs Temp 35.8 C L 02/20/20 13:20 Pulse 65 02/20/20 13:35 Resp 16 02/20/20 13:35 BP 132/91 H 02/20/20 13:35 Pulse Ox 96 02/20/20 13:35 Weight - Most Recent: 71.668 kg Lab Results Last 24 Hours: Laboratory Results - last 24 hr 02/20/20 02/20/20 02/20/20 Range/Units 12:30 12:30 12:30 WBC 10.3 (4.5-11.0) K/uL RBC 4.09 (3.30-5.50) M/uL Hgb 7.3 L (12.0-15.0) g/dL Hct 27.0 L (36.0-48.0) % MCV 66 L (80-98) fL MCH 18 L (27-31) pg MCHC 27 L (32-36) % Plt Count 241 (150-400) K/uL Neut % (Auto) 71 H (36-66) % Lymph % (Auto) 25 (24-44) % [place] % (Auto) 4 (2-6) % Eos % (Auto) 0 L (2-4) % Baso % (Auto) 0 (0-1) % Sodium 135 L (140-148) mmol/L Potassium 3.7 (3.6-5.2) mmol/L Chloride 103 (100-108) mmol/L Carbon Dioxide 22 (21-32) mmol/L Anion Gap 13.7 (5.0-14.0) mmol/L BUN 7 (7-18) mg/dL Creatinine 0.8 (0.6-1.0) mg/dL Est Cr Clr Drug Dosing TNP Estimated GFR (MDRD) > 60 (>60) Glucose 73 L (74-106) mg/dL Uric Acid 3.1 (2.6-6.2) mg/dL Calcium 7.8 L (8.5-10.1) mg/dL Magnesium (1.8-2.4) mg/dL Total Bilirubin 0.3 (0.2-1.0) mg/dL AST 20 D (15-37) U/L ALT 20 D (12-78) U/L Alkaline Phosphatase 348 H D (46-116) U/L Lactate Dehydrogenase 224 (82-234) U/L Total Protein 7.0 (6.4-8.2) g/dL Albumin 2.4 L (3.4-5.0) g/dL Globulin 4.6 H (2.3-3.5) g/dL Albumin/Globulin Ratio 0.5 L (1.2-2.2) HIV-1 Ab Rapid Screen (NON-REACT.) Blood Type Gel Antibody Screen 02/20/20 02/20/20 02/20/20 Range/Units 12:30 12:32 12:32 WBC (4.5-11.0) K/uL RBC (3.30-5.50) M/uL Hgb (12.0-15.0) g/dL Hct (36.0-48.0) % MCV (80-98) fL MCH (27-31) pg MCHC (32-36) % Plt Count (150-400) K/uL Neut % (Auto) (36-66) % Lymph % (Auto) (24-44) % [place] % (Auto) (2-6) % Eos % (Auto) (2-4) % Baso % (Auto) (0-1) % Sodium (140-148) mmol/L Potassium (3.6-5.2) mmol/L Chloride (100-108) mmol/L Carbon Dioxide (21-32) mmol/L Anion Gap (5.0-14.0) mmol/L BUN (7-18) mg/dL Creatinine (0.6-1.0) mg/dL Est Cr Clr Drug Dosing Estimated GFR (MDRD) (>60) Glucose (74-106) mg/dL Uric Acid (2.6-6.2) mg/dL Calcium (8.5-10.1) mg/dL Magnesium 1.9 (1.8-2.4) mg/dL Total Bilirubin (0.2-1.0) mg/dL AST (15-37) U/L ALT (12-78) U/L Alkaline Phosphatase (46-116) U/L Lactate Dehydrogenase (82-234) U/L Total Protein (6.4-8.2) g/dL Albumin (3.4-5.0) g/dL Globulin (2.3-3.5) g/dL Albumin/Globulin Ratio (1.2-2.2) HIV-1 Ab Rapid Screen Non-reactive (NON-REACT.) Blood Type O POSITIVE Gel Antibody Screen Negative Med Orders - Current: Current Medications Acetaminophen (Tylenol) 650 mg PO Q4H PRN PRN Reason: mild pain or fever Oxytocin/Sodium Chloride (Pitocin In Ns 20 Units/1,000 Ml) 20 unit in 1,000 mls @ 2,997 mls/hr IV ASDIRECTED [facility]; Protocol Last Admin: 02/20/20 13:33 Dose: 999 munits/min, 2,997 mls/hr Magnesium Sulfate (Magnesium Sulfate In Water Premix) 40 gm in 1,000 mls @ 50 mls/hr IV .Q20H [facility] Stop: 02/21/20 13:59 Last Admin: 02/20/20 13:59 Dose: 50 mls/hr Ibuprofen (Motrin) 600 mg PO Q6H PRN PRN Reason: mild pain or fever Discontinued Medications Magnesium Sulfate 2 gm/ Premix 50 mls @ 200 mls/hr IV Q15M [facility] Stop: 02/20/20 13:44 Last Admin: 02/20/20 13:43 Dose: 200 mls/hr Misoprostol (Cytotec) 800 mcg RECTAL ONETIME PRN PRN Reason: Excessive vaginal bleeding Stop: 02/20/20 14:00 Last Admin: 02/20/20 13:47 Dose: 800 mcg - Exam General: Oriented, Cooperative, Lethargic HEENT: Pupils Equal, EOMI, Mucous Membr. Moist/Parkin Neck: Supple Lungs: Clear to Auscultation, Normal Respiratory Effort Cardiovascular: Regular Rate, Regular Rhythm. No: No Murmurs GI/Abdominal Exam: Normal Bowel Sounds, Soft, Pelvis Stable (Female) Exam: Normal External Exam, Enlarged Uterus, Vaginal Bleeding. No: Vaginal Tears Back Exam: Normal Inspection, Full Range of Motion Extremities: Normal Inspection, Normal Range of Motion, No Pedal Edema Skin: Warm, Dry, Intact Neurological: Other (methamphetamine use) Psy/Mental Status: Anxious, Depressed - Problem List & Annotations (1) delivery SNOMED Code(s): 836928908, 352093922 Code(s): O60.10X0 - LABOR W DELIVERY, UNSP TRIMESTER, UNSP Status: Acute Current Visit: Yes (2) Vaginal delivery SNOMED Code(s): 264718627 Code(s): O80 - ENCOUNTER FOR FULL-TERM UNCOMPLICATED DELIVERY Status: Acute Current Visit: Yes (3) Anemia SNOMED Code(s): 895573571 Code(s): D64.9 - ANEMIA, UNSPECIFIED Status: Acute Current Visit: Yes Qualifiers: Anemia type: unspecified type Qualified Code(s): D64.9 - Anemia, unspecified (4) No care in current SNOMED Code(s): 599435407 Code(s): O09.30 - SUPRVSN OF PREG W INSUFFICIENT ANTENAT CARE, UNSP TRIMESTER Status: Acute Current Visit: Yes Qualifiers: Trimester: third trimester Qualified Code(s): O09.33 - Supervision of with insufficient care, third trimester (5) Methamphetamine abuse SNOMED Code(s): 298835786 Code(s): F15.10 - OTHER STIMULANT ABUSE, UNCOMPLICATED Status: Chronic Current Visit: No - Problem List Review Problem List Initiated/Reviewed/Updated: Yes - My Orders Last 24 Hours: My Active Orders 02/20/20 12:30 RUBELLA ANTIBODIES, IGG Stat 02/20/20 12:32 Heart Tones [RC] PER UNIT ROUTINE Non Stress Test [RC] Click to Edit Vital Signs [RC] PER UNIT ROUTINE PATIENT RETYPE [BBK] Stat TYPE AND SCREEN [BBK] Stat PIH Panel [OM.PC] Stat 02/20/20 12:48 HBSAG SCREEN Routine HCV ANTIBODY Routine HEP B SURFACE AB Routine T PALLIDUM AB (FTA-AB) Routine 02/20/20 13:30 Oxytocin/Normal Saline [Pitocin in NS 20 Units/1,000 ML] 20 unit in 1,000 ml IV ASDIRECTED 02/20/20 13:31 Patient Status [ADT] Routine Vital Signs [RC] PFP Consult to Case Management/Automatic Folder Seamer [CONS] Routine Acetaminophen [Tylenol] 650 mg PO Q4H PRN Ibuprofen [Motrin] 600 mg PO Q6H PRN Assess Lochia [WOMSER] Per Unit Routine Assess Uterine Involution [WOMSER] Per Unit Routine DVT/VTE Prophylaxis Reflex [OM.PC] Routine Resuscitation Status Routine 02/20/20 13:33 Antiembolic Devices [RC] .Routine VTE/DVT Education [RC] Click to Edit Ice Therapy [OM.PC] Per Unit Routine 02/20/20 14:00 Magnesium Sulfate/Water [Magnesium Sulfate in Water Premix] 40 gm in 1,000 ml IV 50 mls/hr 02/20/20 17:00 CBC WITH AUTO DIFF [HEME] Routine 02/20/20 Dinner Regular Diet [DIET] 02/21/20 06:00 CBC WITH AUTO DIFF [HEME] Routine - Assessment Assessment:: 02/20/20 39 yo Vaginal delivery at unknown gestation estimated 32-34 weeks, no tears EBL 300 at delivery, unknown amount at home delivery Methamphetamine use Elevated BP - Plan Plan:: 02/20/20 Assessment: on admission with no records available Complete upon check, admitted in active labor Unknown gestational age No care Plan: Imminent delivery upon arrival, baby will transfer to NICU, see labor delivery note for further -------- 02/20/20 labs all pending, will obtain UDS and meconium on baby if able Magnesium bolus and magnesium continuous drip due to elevated BP and labor Anticipate 24-48 hour stay Routine pp cares Social service consult
[2020-02-20] MEDS ORDERED: Sodium Chloride 0.9% 10 ML Syringe FLUSH PRN (16:07)
[2020-02-20] MEDS: Ibuprofen 600 MG Tab PO PRN ×2 (17:40→22:54)
[2020-02-20] MEDS: Acetaminophen 325 MG Tab PO PRN (22:12)
[2020-02-20] MEDS ORDERED: Calcium Gluconate 1 GM in Sodium Chloride 0.9% 100 ML IV PRN (23:18)
[2020-02-21] MEDS: Acetaminophen 325 MG Tab PO PRN ×2 (02:30→08:36)
[2020-02-21] MEDS: Ibuprofen 600 MG Tab PO PRN ×2 (05:37→12:20)
[2020-02-21] MEDS ORDERED: Ferrous Sulfate 325 MG Tab PO SCH (08:00)
[2020-02-21 08:11] LABS: HBSAG SCREEN Negative (Negative)
--- NOTE | 2020-02-21 08:24 | PCM.PNPP ---
- General Info Date of Service: 02/21/20 Functional Status: Reports: Pain Controlled - Review of Systems General: Reports: Fatigue HEENT: Reports: No Symptoms Pulmonary: Reports: No Symptoms Cardiovascular: Reports: No Symptoms Gastrointestinal: Reports: No Symptoms Genitourinary: Reports: No Symptoms Musculoskeletal: Reports: No Symptoms Skin: Reports: No Symptoms Neurological: Reports: No Symptoms Psychiatric: Reports: Agitation - General Info Date of Service: 02/21/20 - Patient Data Vital Signs - Most Recent: Last Vital Signs Temp 36.4 C 02/21/20 08:07 Pulse 69 02/21/20 08:07 Resp 18 02/21/20 08:07 BP 118/99 H 02/21/20 08:07 Pulse Ox 97 02/21/20 08:07 Weight - Most Recent: 71.668 kg I&O - Last 24 Hours: Intake & Output 02/20/20 02/21/20 02/21/20 22:59 06:59 14:59 Intake Total 1350 1750 Output Total 950 1850 Balance 400 -100 Lab Results - Last 24 Hours: Laboratory Results - last 24 hr 02/20/20 02/20/20 02/20/20 Range/Units 12:30 12:30 12:30 WBC 10.3 (4.5-11.0) K/uL RBC 4.09 (3.30-5.50) M/uL Hgb 7.3 L (12.0-15.0) g/dL Hct 27.0 L (36.0-48.0) % MCV 66 L (80-98) fL MCH 18 L (27-31) pg MCHC 27 L (32-36) % Plt Count 241 (150-400) K/uL Neut % (Auto) 71 H (36-66) % Lymph % (Auto) 25 (24-44) % [place] % (Auto) 4 (2-6) % Eos % (Auto) 0 L (2-4) % Baso % (Auto) 0 (0-1) % Sodium 135 L (140-148) mmol/L Potassium 3.7 (3.6-5.2) mmol/L Chloride 103 (100-108) mmol/L Carbon Dioxide 22 (21-32) mmol/L Anion Gap 13.7 (5.0-14.0) mmol/L BUN 7 (7-18) mg/dL Creatinine 0.8 (0.6-1.0) mg/dL Est Cr Clr Drug Dosing TNP Estimated GFR (MDRD) > 60 (>60) Glucose 73 L (74-106) mg/dL Uric Acid (2.6-6.2) mg/dL Calcium 7.8 L (8.5-10.1) mg/dL Magnesium (1.8-2.4) mg/dL Total Bilirubin 0.3 (0.2-1.0) mg/dL AST 20 D (15-37) U/L ALT 20 D (12-78) U/L Alkaline Phosphatase 348 H D (46-116) U/L Lactate Dehydrogenase (82-234) U/L Total Protein 7.0 (6.4-8.2) g/dL Albumin 2.4 L (3.4-5.0) g/dL Globulin 4.6 H (2.3-3.5) g/dL Albumin/Globulin Ratio 0.5 L (1.2-2.2) Urine Color (YELLOW) Urine Appearance (CLEAR) Urine pH (5.0-8.0) Ur Specific [place] (1.008-1.030) Urine Protein (NEGATIVE) mg/dL Urine Glucose (UA) (NEGATIVE) mg/dL Urine Ketones (NEGATIVE) mg/dL Urine Occult Blood (NEGATIVE) Urine Nitrite (NEGATIVE) Urine Bilirubin (NEGATIVE) Urine Urobilinogen (0.2-1.0) EU/dL Ur Leukocyte Esterase (NEGATIVE) Urine RBC Urine WBC Ur Epithelial Cells Amorphous Sediment Urine Bacteria Urine Mucus Urinalysis Comment Urine Opiates Screen (NEGATIVE) Ur Oxycodone Screen (NEGATIVE) Urine Methadone Screen (NEGATIVE) Ur Propoxyphene Screen (NEGATIVE) Ur Barbiturates Screen (NEGATIVE) Ur Tricyclics Screen (NEGATIVE) Ur Phencyclidine Scrn (NEGATIVE) Ur Amphetamine Screen (NEGATIVE) U Methamphetamines Scrn (NEGATIVE) Urine MDMA Screen (NEGATIVE) U Benzodiazepines Scrn (NEGATIVE) U Cocaine Metab Screen (NEGATIVE) U Marijuana (THC) Screen (NEGATIVE) Hep Bs Antigen (Negative) Hep Bs Antibody (.) Hepatitis C Antibody (0.0-0.9) s/co ratio HIV-1 Ab Rapid Screen (NON-REACT.) Rubella IgG Antibody 0.91 L (Immune >0.99) index Blood Type Gel Antibody Screen Crossmatch 02/20/20 02/20/20 02/20/20 Range/Units 12:30 12:30 12:32 WBC (4.5-11.0) K/uL RBC (3.30-5.50) M/uL Hgb (12.0-15.0) g/dL Hct (36.0-48.0) % MCV (80-98) fL MCH (27-31) pg MCHC (32-36) % Plt Count (150-400) K/uL Neut % (Auto) (36-66) % Lymph % (Auto) (24-44) % [place] % (Auto) (2-6) % Eos % (Auto) (2-4) % Baso % (Auto) (0-1) % Sodium (140-148) mmol/L Potassium (3.6-5.2) mmol/L Chloride (100-108) mmol/L Carbon Dioxide (21-32) mmol/L Anion Gap (5.0-14.0) mmol/L BUN (7-18) mg/dL Creatinine (0.6-1.0) mg/dL Est Cr Clr Drug Dosing Estimated GFR (MDRD) (>60) Glucose (74-106) mg/dL Uric Acid 3.1 (2.6-6.2) mg/dL Calcium (8.5-10.1) mg/dL Magnesium 1.9 (1.8-2.4) mg/dL Total Bilirubin (0.2-1.0) mg/dL AST (15-37) U/L ALT (12-78) U/L Alkaline Phosphatase (46-116) U/L Lactate Dehydrogenase 224 (82-234) U/L Total Protein (6.4-8.2) g/dL Albumin (3.4-5.0) g/dL Globulin (2.3-3.5) g/dL Albumin/Globulin Ratio (1.2-2.2) Urine Color (YELLOW) Urine Appearance (CLEAR) Urine pH (5.0-8.0) Ur Specific [place] (1.008-1.030) Urine Protein (NEGATIVE) mg/dL Urine Glucose (UA) (NEGATIVE) mg/dL Urine Ketones (NEGATIVE) mg/dL Urine Occult Blood (NEGATIVE) Urine Nitrite (NEGATIVE) Urine Bilirubin (NEGATIVE) Urine Urobilinogen (0.2-1.0) EU/dL Ur Leukocyte Esterase (NEGATIVE) Urine RBC Urine WBC Ur Epithelial Cells Amorphous Sediment Urine Bacteria Urine Mucus Urinalysis Comment Urine Opiates Screen (NEGATIVE) Ur Oxycodone Screen (NEGATIVE) Urine Methadone Screen (NEGATIVE) Ur Propoxyphene Screen (NEGATIVE) Ur Barbiturates Screen (NEGATIVE) Ur Tricyclics Screen (NEGATIVE) Ur Phencyclidine Scrn (NEGATIVE) Ur Amphetamine Screen (NEGATIVE) U Methamphetamines Scrn (NEGATIVE) Urine MDMA Screen (NEGATIVE) U Benzodiazepines Scrn (NEGATIVE) U Cocaine Metab Screen (NEGATIVE) U Marijuana (THC) Screen (NEGATIVE) Hep Bs Antigen (Negative) Hep Bs Antibody (.) Hepatitis C Antibody (0.0-0.9) s/co ratio HIV-1 Ab Rapid Screen Non-reactive (NON-REACT.) Rubella IgG Antibody (Immune >0.99) index Blood Type Gel Antibody Screen Crossmatch 02/20/20 02/20/20 02/20/20 Range/Units 12:32 12:48 12:48 WBC (4.5-11.0) K/uL RBC (3.30-5.50) M/uL Hgb (12.0-15.0) g/dL Hct (36.0-48.0) % MCV (80-98) fL MCH (27-31) pg MCHC (32-36) % Plt Count (150-400) K/uL Neut % (Auto) (36-66) % Lymph % (Auto) (24-44) % [place] % (Auto) (2-6) % Eos % (Auto) (2-4) % Baso % (Auto) (0-1) % Sodium (140-148) mmol/L Potassium (3.6-5.2) mmol/L Chloride (100-108) mmol/L Carbon Dioxide (21-32) mmol/L Anion Gap (5.0-14.0) mmol/L BUN (7-18) mg/dL Creatinine (0.6-1.0) mg/dL Est Cr Clr Drug Dosing Estimated GFR (MDRD) (>60) Glucose (74-106) mg/dL Uric Acid (2.6-6.2) mg/dL Calcium (8.5-10.1) mg/dL Magnesium (1.8-2.4) mg/dL Total Bilirubin (0.2-1.0) mg/dL AST (15-37) U/L ALT (12-78) U/L Alkaline Phosphatase (46-116) U/L Lactate Dehydrogenase (82-234) U/L Total Protein (6.4-8.2) g/dL Albumin (3.4-5.0) g/dL Globulin (2.3-3.5) g/dL Albumin/Globulin Ratio (1.2-2.2) Urine Color (YELLOW) Urine Appearance (CLEAR) Urine pH (5.0-8.0) Ur Specific [place] (1.008-1.030) Urine Protein (NEGATIVE) mg/dL Urine Glucose (UA) (NEGATIVE) mg/dL Urine Ketones (NEGATIVE) mg/dL Urine Occult Blood (NEGATIVE) Urine Nitrite (NEGATIVE) Urine Bilirubin (NEGATIVE) Urine Urobilinogen (0.2-1.0) EU/dL Ur Leukocyte Esterase (NEGATIVE) Urine RBC Urine WBC Ur Epithelial Cells Amorphous Sediment Urine Bacteria Urine Mucus Urinalysis Comment Urine Opiates Screen (NEGATIVE) Ur Oxycodone Screen (NEGATIVE) Urine Methadone Screen (NEGATIVE) Ur Propoxyphene Screen (NEGATIVE) Ur Barbiturates Screen (NEGATIVE) Ur Tricyclics Screen (NEGATIVE) Ur Phencyclidine Scrn (NEGATIVE) Ur Amphetamine Screen (NEGATIVE) U Methamphetamines Scrn (NEGATIVE) Urine MDMA Screen (NEGATIVE) U Benzodiazepines Scrn (NEGATIVE) U Cocaine Metab Screen (NEGATIVE) U Marijuana (THC) Screen (NEGATIVE) Hep Bs Antigen (Negative) Hep Bs Antibody Non reactive (.) Hepatitis C Antibody <0.1 (0.0-0.9) s/co ratio HIV-1 Ab Rapid Screen (NON-REACT.) Rubella IgG Antibody (Immune >0.99) index Blood Type O POSITIVE Gel Antibody Screen Negative Crossmatch See Detail 02/20/20 02/20/20 02/20/20 Range/Units 12:48 16:07 17:00 WBC 16.0 H (4.5-11.0) K/uL RBC 3.79 (3.30-5.50) M/uL Hgb 6.7 L* (12.0-15.0) g/dL Hct 25.0 L (36.0-48.0) % MCV 66 L (80-98) fL MCH 18 L (27-31) pg MCHC 27 L (32-36) % Plt Count 212 (150-400) K/uL Neut % (Auto) 85 H (36-66) % Lymph % (Auto) 10 L (24-44) % [place] % (Auto) 5 (2-6) % Eos % (Auto) 0 L (2-4) % Baso % (Auto) 0 (0-1) % Sodium (140-148) mmol/L Potassium (3.6-5.2) mmol/L Chloride (100-108) mmol/L Carbon Dioxide (21-32) mmol/L Anion Gap (5.0-14.0) mmol/L BUN (7-18) mg/dL Creatinine (0.6-1.0) mg/dL Est Cr Clr Drug Dosing Estimated GFR (MDRD) (>60) Glucose (74-106) mg/dL Uric Acid (2.6-6.2) mg/dL Calcium (8.5-10.1) mg/dL Magnesium (1.8-2.4) mg/dL Total Bilirubin (0.2-1.0) mg/dL AST (15-37) U/L ALT (12-78) U/L Alkaline Phosphatase (46-116) U/L Lactate Dehydrogenase (82-234) U/L Total Protein (6.4-8.2) g/dL Albumin (3.4-5.0) g/dL Globulin (2.3-3.5) g/dL Albumin/Globulin Ratio (1.2-2.2) Urine Color (YELLOW) Urine Appearance (CLEAR) Urine pH (5.0-8.0) Ur Specific [place] (1.008-1.030) Urine Protein (NEGATIVE) mg/dL Urine Glucose (UA) (NEGATIVE) mg/dL Urine Ketones (NEGATIVE) mg/dL Urine Occult Blood (NEGATIVE) Urine Nitrite (NEGATIVE) Urine Bilirubin (NEGATIVE) Urine Urobilinogen (0.2-1.0) EU/dL Ur Leukocyte Esterase (NEGATIVE) Urine RBC Urine WBC Ur Epithelial Cells Amorphous Sediment Urine Bacteria Urine Mucus Urinalysis Comment Urine Opiates Screen Negative (NEGATIVE) Ur Oxycodone Screen Negative (NEGATIVE) Urine Methadone Screen Negative (NEGATIVE) Ur Propoxyphene Screen Negative (NEGATIVE) Ur Barbiturates Screen Negative (NEGATIVE) Ur Tricyclics Screen Negative (NEGATIVE) Ur Phencyclidine Scrn Negative (NEGATIVE) Ur Amphetamine Screen Presumptive positive H (NEGATIVE) U Methamphetamines Scrn Presumptive positive H (NEGATIVE) Urine MDMA Screen Negative (NEGATIVE) U Benzodiazepines Scrn Negative (NEGATIVE) U Cocaine Metab Screen Negative (NEGATIVE) U Marijuana (THC) Screen Negative (NEGATIVE) Hep Bs Antigen Negative (Negative) Hep Bs Antibody (.) Hepatitis C Antibody (0.0-0.9) s/co ratio HIV-1 Ab Rapid Screen (NON-REACT.) Rubella IgG Antibody (Immune >0.99) index Blood Type Gel Antibody Screen Crossmatch 02/20/20 02/20/20 02/20/20 Range/Units 17:00 17:05 21:10 WBC (4.5-11.0) K/uL RBC (3.30-5.50) M/uL Hgb (12.0-15.0) g/dL Hct (36.0-48.0) % MCV (80-98) fL MCH (27-31) pg MCHC (32-36) % Plt Count (150-400) K/uL Neut % (Auto) (36-66) % Lymph % (Auto) (24-44) % [place] % (Auto) (2-6) % Eos % (Auto) (2-4) % Baso % (Auto) (0-1) % Sodium (140-148) mmol/L Potassium (3.6-5.2) mmol/L Chloride (100-108) mmol/L Carbon Dioxide (21-32) mmol/L Anion Gap (5.0-14.0) mmol/L BUN (7-18) mg/dL Creatinine (0.6-1.0) mg/dL Est Cr Clr Drug Dosing Estimated GFR (MDRD) (>60) Glucose (74-106) mg/dL Uric Acid (2.6-6.2) mg/dL Calcium (8.5-10.1) mg/dL Magnesium 4.5 H D 5.2 H D (1.8-2.4) mg/dL Total Bilirubin (0.2-1.0) mg/dL AST (15-37) U/L ALT (12-78) U/L Alkaline Phosphatase (46-116) U/L Lactate Dehydrogenase 245 H (82-234) U/L Total Protein (6.4-8.2) g/dL Albumin (3.4-5.0) g/dL Globulin (2.3-3.5) g/dL Albumin/Globulin Ratio (1.2-2.2) Urine Color Red A (YELLOW) Urine Appearance Turbid A (CLEAR) Urine pH 7.0 (5.0-8.0) Ur Specific [place] >= 1.030 (1.008-1.030) Urine Protein >=300 H (NEGATIVE) mg/dL Urine Glucose (UA) Negative (NEGATIVE) mg/dL Urine Ketones Negative (NEGATIVE) mg/dL Urine Occult Blood Large H (NEGATIVE) Urine Nitrite Negative (NEGATIVE) Urine Bilirubin Negative (NEGATIVE) Urine Urobilinogen 0.2 (0.2-1.0) EU/dL Ur Leukocyte Esterase Trace H (NEGATIVE) Urine RBC TNP Urine WBC TNP Ur Epithelial Cells TNP Amorphous Sediment TNP Urine Bacteria TNP Urine Mucus TNP Urinalysis Comment Urine Opiates Screen (NEGATIVE) Ur Oxycodone Screen (NEGATIVE) Urine Methadone Screen (NEGATIVE) Ur Propoxyphene Screen (NEGATIVE) Ur Barbiturates Screen (NEGATIVE) Ur Tricyclics Screen (NEGATIVE) Ur Phencyclidine Scrn (NEGATIVE) Ur Amphetamine Screen (NEGATIVE) U Methamphetamines Scrn (NEGATIVE) Urine MDMA Screen (NEGATIVE) U Benzodiazepines Scrn (NEGATIVE) U Cocaine Metab Screen (NEGATIVE) U Marijuana (THC) Screen (NEGATIVE) Hep Bs Antigen (Negative) Hep Bs Antibody (.) Hepatitis C Antibody (0.0-0.9) s/co ratio HIV-1 Ab Rapid Screen (NON-REACT.) [place] IgG Antibody (Immune >0.99) index Blood Type Gel Antibody Screen Crossmatch 02/21/20 02/21/20 02/21/20 Range/Units 02:30 06:00 06:00 WBC 11.6 H (4.5-11.0) K/uL RBC 3.33 (3.30-5.50) M/uL Hgb 5.9 L* (12.0-15.0) g/dL Hct 22.2 L (36.0-48.0) % MCV 67 L (80-98) fL MCH 18 L (27-31) pg MCHC 27 L (32-36) % Plt Count 202 (150-400) K/uL Neut % (Auto) 70 H (36-66) % Lymph % (Auto) 24 (24-44) % [place] % (Auto) 5 (2-6) % Eos % (Auto) 1 L (2-4) % Baso % (Auto) 0 (0-1) % Sodium (140-148) mmol/L Potassium (3.6-5.2) mmol/L Chloride (100-108) mmol/L Carbon Dioxide (21-32) mmol/L Anion Gap (5.0-14.0) mmol/L BUN (7-18) mg/dL Creatinine (0.6-1.0) mg/dL Est Cr Clr Drug Dosing Estimated GFR (MDRD) (>60) Glucose (74-106) mg/dL Uric Acid (2.6-6.2) mg/dL Calcium (8.5-10.1) mg/dL Magnesium 6.1 H D 6.3 H (1.8-2.4) mg/dL Total Bilirubin (0.2-1.0) mg/dL AST (15-37) U/L ALT (12-78) U/L Alkaline Phosphatase (46-116) U/L Lactate Dehydrogenase (82-234) U/L Total Protein (6.4-8.2) g/dL Albumin (3.4-5.0) g/dL Globulin (2.3-3.5) g/dL Albumin/Globulin Ratio (1.2-2.2) Urine Color (YELLOW) Urine Appearance (CLEAR) Urine pH (5.0-8.0) Ur Specific [place] (1.008-1.030) Urine Protein (NEGATIVE) mg/dL Urine Glucose (UA) (NEGATIVE) mg/dL Urine Ketones (NEGATIVE) mg/dL Urine Occult Blood (NEGATIVE) Urine Nitrite (NEGATIVE) Urine Bilirubin (NEGATIVE) Urine Urobilinogen (0.2-1.0) EU/dL Ur Leukocyte Esterase (NEGATIVE) Urine RBC Urine WBC Ur Epithelial Cells Amorphous Sediment Urine Bacteria Urine Mucus Urinalysis Comment Urine Opiates Screen (NEGATIVE) Ur Oxycodone Screen (NEGATIVE) Urine Methadone Screen (NEGATIVE) Ur Propoxyphene Screen (NEGATIVE) Ur Barbiturates Screen (NEGATIVE) Ur Tricyclics Screen (NEGATIVE) Ur Phencyclidine Scrn (NEGATIVE) Ur Amphetamine Screen (NEGATIVE) U Methamphetamines Scrn (NEGATIVE) Urine MDMA Screen (NEGATIVE) U Benzodiazepines Scrn (NEGATIVE) U Cocaine Metab Screen (NEGATIVE) U Marijuana (THC) Screen (NEGATIVE) Hep Bs Antigen (Negative) Hep Bs Antibody (.) Hepatitis C Antibody (0.0-0.9) s/co ratio HIV-1 Ab Rapid Screen (NON-REACT.) [place] IgG Antibody (Immune >0.99) index Blood Type Gel Antibody Screen Crossmatch Med Orders - Current: Current Medications Acetaminophen (Tylenol) 650 mg PO Q4H PRN PRN Reason: mild pain or fever Last Admin: 02/21/20 02:30 Dose: 650 mg Ferrous Sulfate (Ferrous Sulfate) 325 mg PO BIDMEALS [facility] Magnesium Sulfate (Magnesium Sulfate In Water Premix) 40 gm in 1,000 mls @ 50 mls/hr IV .Q20H [facility] Stop: 02/21/20 13:59 Last Admin: 02/20/20 13:59 Dose: 50 mls/hr Calcium Gluconate 1 gm/ Sodium (Chloride) 110 mls @ 100 mls/hr IV ONETIME PRN PRN Reason: Other Ibuprofen (Motrin) 600 mg PO Q6H PRN PRN Reason: mild pain or fever Last Admin: 02/21/20 05:37 Dose: 600 mg Sodium Chloride (Saline Flush) 10 ml FLUSH ASDIRECTED PRN PRN Reason: Keep Vein Open Discontinued Medications Oxytocin/Sodium Chloride (Pitocin In Ns 20 Units/1,000 Ml) 20 unit in 1,000 mls @ 2,997 mls/hr IV ASDIRECTED KAELYN; Protocol Last Admin: 02/20/20 13:33 Dose: 999 munits/min, 2,997 mls/hr Magnesium Sulfate 2 gm/ Premix 50 mls @ 200 mls/hr IV Q15M KAELYN Stop: 02/20/20 13:44 Last Admin: 02/20/20 13:43 Dose: 200 mls/hr Misoprostol (Cytotec) 800 mcg RECTAL ONETIME PRN PRN Reason: Excessive vaginal bleeding Stop: 02/20/20 14:00 Last Admin: 02/20/20 13:47 Dose: 800 mcg - Infant Interaction Disposition, : NICU - Recovery Exam Fundal Tone: Firms with Massage Fundal Level: 1 Fingerbreadths Below Umbilicus Fundal Placement: Left Lochia Amount: Small Lochia Color: Rubra/Red Perineum Description: Intact, Minimal Bruising/Swelling Episiotomy/Laceration: None Bladder Status: Nonpalpable Urinary Elimination: Voided - Exam General: Oriented, Cooperative, Lethargic HEENT: Pupils Equal, Pupils Reactive, EOMI, Mucous Membr. Moist/Belk Neck: Supple Lungs: Clear to Auscultation, Normal Respiratory Effort Cardiovascular: Regular Rate, Regular Rhythm, Murmurs GI/Abdominal Exam: Normal Bowel Sounds, Soft, Pelvis Stable Extremities: Normal Inspection, Normal Range of Motion, Non-Tender, No Pedal Edema Skin: Warm, Dry, Intact Neurological: No New Focal Deficit Psy/Mental Status: Anxious, Agitated - Problem List & Annotations (1) delivery SNOMED Code(s): 286318507, 713634261 Code(s): O60.10X0 - LABOR W DELIVERY, UNSP TRIMESTER, UNSP Status: Acute Current Visit: Yes (2) Vaginal delivery SNOMED Code(s): 702870256 Code(s): O80 - ENCOUNTER FOR FULL-TERM UNCOMPLICATED DELIVERY Status: Acute Current Visit: Yes (3) Anemia SNOMED Code(s): 522880161 Code(s): D64.9 - ANEMIA, UNSPECIFIED Status: Acute Current Visit: Yes Qualifiers: Anemia type: unspecified type Qualified Code(s): D64.9 - Anemia, unspecified (4) No care in current SNOMED Code(s): 975946228 Code(s): O09.30 - SUPRVSN OF PREG W INSUFFICIENT ANTENAT CARE, UNSP TRIMESTER Status: Acute Current Visit: Yes Qualifiers: Trimester: third trimester Qualified Code(s): O09.33 - Supervision of with insufficient care, third trimester (5) Methamphetamine abuse SNOMED Code(s): 714216690 Code(s): F15.10 - OTHER STIMULANT ABUSE, UNCOMPLICATED Status: Chronic Current Visit: No (6) Preeclampsia SNOMED Code(s): 901547928 Code(s): O14.90 - UNSPECIFIED PRE-ECLAMPSIA, UNSPECIFIED TRIMESTER Status: Acute Current Visit: Yes (7) Rubella nonimmune status, delivered, current hospitalization SNOMED Code(s): 899682170 Code(s): O99.89 - OTH DISEASES AND CONDITIONS COMPL PREG/CHLDBRTH; Z28.3 - UNDERIMMUNIZATION STATUS Status: Acute Current Visit: Yes - Problem List Review Problem List Initiated/Reviewed/Updated: Yes - My Orders Last 24 Hours: My Active Orders 02/20/20 12:32 Vital Signs [RC] PER UNIT ROUTINE PATIENT RETYPE [BBK] Stat TYPE AND SCREEN [BBK] Stat PIH Panel [OM.PC] Stat 02/20/20 12:48 T PALLIDUM AB (FTA-AB) Routine 02/20/20 13:31 Patient Status [ADT] Routine Vital Signs [RC] PFP Consult to Case Management/Criminalist Technician [CONS] Routine Acetaminophen [Tylenol] 650 mg PO Q4H PRN Ibuprofen [Motrin] 600 mg PO Q6H PRN Assess Lochia [WOMSER] Per Unit Routine Assess Uterine Involution [WOMSER] Per Unit Routine DVT/VTE Prophylaxis Reflex [OM.PC] Routine Resuscitation Status Routine 02/20/20 13:33 Antiembolic Devices [RC] .Routine Ice Therapy [OM.PC] Per Unit Routine 02/20/20 14:00 Magnesium Sulfate/Water [Magnesium Sulfate in Water Premix] 40 gm in 1,000 ml IV 50 mls/hr 02/20/20 16:07 Sodium Chloride 0.9% [Saline Flush] 10 ml FLUSH ASDIRECTED PRN 02/20/20 16:08 Bedrest Bedside Commode [RC] ASDIRECTED Intake and Output Strict [RC] ASDIRECTED Notify Provider [RC] PRN Notify Provider [RC] PRN Notify Provider [RC] PRN Notify Provider [RC] PRN Peripheral IV Care [RC] . DIRECTED Positioning, Left Lateral [RC] ASDIRECTED Deep Tendon Reflexes [WOMSER] Per Unit Routine Peripheral IV Insertion Adult [OM.PC] Routine Seizure Precautions [OM.PC] Routine 02/20/20 17:25 AMPHETAMINE SCREEN RFLX Routine 02/20/20 21:30 Cardiac Monitoring [RC] .As Directed 02/20/20 23:18 Calcium Gluconate 1 gm Sodium Chloride 0.9% [Normal Saline] 100 ml IV ONETIME 02/20/20 Dinner Regular Diet [DIET] 02/21/20 06:32 RED BLOOD CELLS LP [BBK] Routine Transfuse Red Blood Cells [COMM] Routine 02/21/20 06:33 Communication Order [RC] ASDIRECTED 02/21/20 08:00 Ferrous Sulfate 325 mg PO BIDMEALS 02/21/20 09:00 MAGNESIUM [CHEM] Routine - Assessment Assessment:: 02/20/20 39 yo Vaginal delivery at unknown gestation estimated 32-34 weeks, no tears EBL 300 at delivery, unknown amount at home delivery Methamphetamine use Elevated BP 02/21/20 40 yo day 1 PP Preeclampsia (urine protein >300, LDH 245) Low hemoglobin 5.9, Platelets 202 Magnesium lab 6.3, Magnesium running since delivery due to preeclampsia Pain controlled Patient slightly agitated but agrees to treatment and plan BP stabilized Perineum intact, FF, bleeding light Rubella non-immune Unknown GBS status Hep C, B, HIV all negative - Plan Plan:: 02/20/20 Assessment: on admission with no records available Complete upon check, admitted in active labor Unknown gestational age No care Plan: Imminent delivery upon arrival, baby will transfer to NICU, see labor delivery note for further -------- 02/20/20 labs all pending, will obtain UDS and meconium on baby if able Magnesium bolus and magnesium continuous drip due to elevated BP and labor Anticipate 24-48 hour stay Routine pp cares Social service consult 02/21/20 Wean magnesium down to 1 gram over the two hours and then stop. Last Magnesium level to be drawn at 0900. Monitor BP closely. Will transfuse 2 units PRBC's due to hemoglobin of 5.9 this morning. Anticipate discharge with no BP medications and a follow up blood pressure check in the clinic next week. Will potentially discharge patient this evening if blood pressure is stable and hemoglobin improves, hemoglobin 2 hours after last unit. With baby in NICU no MMR to be given at this time.
[2020-02-21] MEDS: Magnesium Sulfate/Water 40 GM/1,000 ML BAG IV SCH (11:02)
[2020-02-21 13:10] VITALS: BP 126/69; PULSE 66
--- NOTE | 2020-02-21 15:30 | PCM.PNPP ---
- General Info Date of Service: 02/21/20 Functional Status: Reports: Pain Controlled - Review of Systems General: Reports: No Symptoms HEENT: Reports: No Symptoms Pulmonary: Reports: No Symptoms Cardiovascular: Reports: No Symptoms Gastrointestinal: Reports: No Symptoms Genitourinary: Reports: No Symptoms Musculoskeletal: Reports: No Symptoms Skin: Reports: No Symptoms Neurological: Reports: No Symptoms Psychiatric: Reports: No Symptoms - General Info Date of Service: 02/21/20 - Patient Data Vital Signs - Most Recent: Last Vital Signs Temp 36.7 C 02/21/20 13:08 Pulse 66 02/21/20 13:08 Resp 16 02/21/20 13:08 BP 126/69 02/21/20 13:08 Pulse Ox 97 02/21/20 08:07 Weight - Most Recent: 71.668 kg I&O - Last 24 Hours: Intake & Output 02/21/20 02/21/20 02/21/20 06:59 14:59 22:59 Intake Total 1750 2143 Output Total 1850 800 Balance -100 1343 Lab Results - Last 24 Hours: Laboratory Results - last 24 hr 02/20/20 02/20/20 02/20/20 Range/Units 12:30 12:32 12:48 WBC (4.5-11.0) K/uL RBC (3.30-5.50) M/uL Hgb (12.0-15.0) g/dL Hct (36.0-48.0) % MCV (80-98) fL MCH (27-31) pg MCHC (32-36) % Plt Count (150-400) K/uL Neut % (Auto) (36-66) % Lymph % (Auto) (24-44) % [place] % (Auto) (2-6) % Eos % (Auto) (2-4) % Baso % (Auto) (0-1) % Magnesium (1.8-2.4) mg/dL Lactate Dehydrogenase (82-234) U/L Urine Color (YELLOW) Urine Appearance (CLEAR) Urine pH (5.0-8.0) Ur Specific [place] (1.008-1.030) Urine Protein (NEGATIVE) mg/dL Urine Glucose (UA) (NEGATIVE) mg/dL Urine Ketones (NEGATIVE) mg/dL Urine Occult Blood (NEGATIVE) Urine Nitrite (NEGATIVE) Urine Bilirubin (NEGATIVE) Urine Urobilinogen (0.2-1.0) EU/dL Ur Leukocyte Esterase (NEGATIVE) Urine RBC Urine WBC Ur Epithelial Cells Amorphous Sediment Urine Bacteria Urine Mucus Urinalysis Comment Urine Opiates Screen (NEGATIVE) Ur Oxycodone Screen (NEGATIVE) Urine Methadone Screen (NEGATIVE) Ur Propoxyphene Screen (NEGATIVE) Ur Barbiturates Screen (NEGATIVE) Ur Tricyclics Screen (NEGATIVE) Ur Phencyclidine Scrn (NEGATIVE) Ur Amphetamine Screen (NEGATIVE) U Methamphetamines Scrn (NEGATIVE) Urine MDMA Screen (NEGATIVE) U Benzodiazepines Scrn (NEGATIVE) U Cocaine Metab Screen (NEGATIVE) U Marijuana (THC) Screen (NEGATIVE) Hep Bs Antigen (Negative) Hep Bs Antibody (.) Hepatitis C Antibody <0.1 (0.0-0.9) s/co ratio Rubella IgG Antibody 0.91 L (Immune >0.99) index Blood Type O POSITIVE Gel Antibody Screen Negative Crossmatch See Detail 02/20/20 02/20/20 02/20/20 Range/Units 12:48 12:48 16:07 WBC (4.5-11.0) K/uL RBC (3.30-5.50) M/uL Hgb (12.0-15.0) g/dL Hct (36.0-48.0) % MCV (80-98) fL MCH (27-31) pg MCHC (32-36) % Plt Count (150-400) K/uL Neut % (Auto) (36-66) % Lymph % (Auto) (24-44) % [place] % (Auto) (2-6) % Eos % (Auto) (2-4) % Baso % (Auto) (0-1) % Magnesium (1.8-2.4) mg/dL Lactate Dehydrogenase (82-234) U/L Urine Color (YELLOW) Urine Appearance (CLEAR) Urine pH (5.0-8.0) Ur Specific [place] (1.008-1.030) Urine Protein (NEGATIVE) mg/dL Urine Glucose (UA) (NEGATIVE) mg/dL Urine Ketones (NEGATIVE) mg/dL Urine Occult Blood (NEGATIVE) Urine Nitrite (NEGATIVE) Urine Bilirubin (NEGATIVE) Urine Urobilinogen (0.2-1.0) EU/dL Ur Leukocyte Esterase (NEGATIVE) Urine RBC Urine WBC Ur Epithelial Cells Amorphous Sediment Urine Bacteria Urine Mucus Urinalysis Comment Urine Opiates Screen Negative (NEGATIVE) Ur Oxycodone Screen Negative (NEGATIVE) Urine Methadone Screen Negative (NEGATIVE) Ur Propoxyphene Screen Negative (NEGATIVE) Ur Barbiturates Screen Negative (NEGATIVE) Ur Tricyclics Screen Negative (NEGATIVE) Ur Phencyclidine Scrn Negative (NEGATIVE) Ur Amphetamine Screen Presumptive positive H (NEGATIVE) U Methamphetamines Scrn Presumptive positive H (NEGATIVE) Urine MDMA Screen Negative (NEGATIVE) U Benzodiazepines Scrn Negative (NEGATIVE) U Cocaine Metab Screen Negative (NEGATIVE) U Marijuana (THC) Screen Negative (NEGATIVE) Hep Bs Antigen Negative (Negative) Hep Bs Antibody Non reactive (.) Hepatitis C Antibody (0.0-0.9) s/co ratio Rubella IgG Antibody (Immune >0.99) index Blood Type Gel Antibody Screen Crossmatch 02/20/20 02/20/20 02/20/20 Range/Units 17:00 17:00 17:05 WBC 16.0 H (4.5-11.0) K/uL RBC 3.79 (3.30-5.50) M/uL Hgb 6.7 L* (12.0-15.0) g/dL Hct 25.0 L (36.0-48.0) % MCV 66 L (80-98) fL MCH 18 L (27-31) pg MCHC 27 L (32-36) % Plt Count 212 (150-400) K/uL Neut % (Auto) 85 H (36-66) % Lymph % (Auto) 10 L (24-44) % [place] % (Auto) 5 (2-6) % Eos % (Auto) 0 L (2-4) % Baso % (Auto) 0 (0-1) % Magnesium 4.5 H D (1.8-2.4) mg/dL Lactate Dehydrogenase 245 H (82-234) U/L Urine Color Red A (YELLOW) Urine Appearance Turbid A (CLEAR) Urine pH 7.0 (5.0-8.0) Ur Specific [place] >= 1.030 (1.008-1.030) Urine Protein >=300 H (NEGATIVE) mg/dL Urine Glucose (UA) Negative (NEGATIVE) mg/dL Urine Ketones Negative (NEGATIVE) mg/dL Urine Occult Blood Large H (NEGATIVE) Urine Nitrite Negative (NEGATIVE) Urine Bilirubin Negative (NEGATIVE) Urine Urobilinogen 0.2 (0.2-1.0) EU/dL Ur Leukocyte Esterase Trace H (NEGATIVE) Urine RBC TNP Urine WBC TNP Ur Epithelial Cells TNP Amorphous Sediment TNP Urine Bacteria TNP Urine Mucus TNP Urinalysis Comment Urine Opiates Screen (NEGATIVE) Ur Oxycodone Screen (NEGATIVE) Urine Methadone Screen (NEGATIVE) Ur Propoxyphene Screen (NEGATIVE) Ur Barbiturates Screen (NEGATIVE) Ur Tricyclics Screen (NEGATIVE) Ur Phencyclidine Scrn (NEGATIVE) Ur Amphetamine Screen (NEGATIVE) U Methamphetamines Scrn (NEGATIVE) Urine MDMA Screen (NEGATIVE) U Benzodiazepines Scrn (NEGATIVE) U Cocaine Metab Screen (NEGATIVE) U Marijuana (THC) Screen (NEGATIVE) Hep Bs Antigen (Negative) Hep Bs Antibody (.) Hepatitis C Antibody (0.0-0.9) s/co ratio Rubella IgG Antibody (Immune >0.99) index Blood Type Gel Antibody Screen Crossmatch 02/20/20 02/21/20 02/21/20 Range/Units 21:10 02:30 06:00 WBC 11.6 H (4.5-11.0) K/uL RBC 3.33 (3.30-5.50) M/uL Hgb 5.9 L* (12.0-15.0) g/dL Hct 22.2 L (36.0-48.0) % MCV 67 L (80-98) fL MCH 18 L (27-31) pg MCHC 27 L (32-36) % Plt Count 202 (150-400) K/uL Neut % (Auto) 70 H (36-66) % Lymph % (Auto) 24 (24-44) % [place] % (Auto) 5 (2-6) % Eos % (Auto) 1 L (2-4) % Baso % (Auto) 0 (0-1) % Magnesium 5.2 H D 6.1 H D (1.8-2.4) mg/dL Lactate Dehydrogenase (82-234) U/L Urine Color (YELLOW) Urine Appearance (CLEAR) Urine pH (5.0-8.0) Ur Specific [place] (1.008-1.030) Urine Protein (NEGATIVE) mg/dL Urine Glucose (UA) (NEGATIVE) mg/dL Urine Ketones (NEGATIVE) mg/dL Urine Occult Blood (NEGATIVE) Urine Nitrite (NEGATIVE) Urine Bilirubin (NEGATIVE) Urine Urobilinogen (0.2-1.0) EU/dL Ur Leukocyte Esterase (NEGATIVE) Urine RBC Urine WBC Ur Epithelial Cells Amorphous Sediment Urine Bacteria Urine Mucus Urinalysis Comment Urine Opiates Screen (NEGATIVE) Ur Oxycodone Screen (NEGATIVE) Urine Methadone Screen (NEGATIVE) Ur Propoxyphene Screen (NEGATIVE) Ur Barbiturates Screen (NEGATIVE) Ur Tricyclics Screen (NEGATIVE) Ur Phencyclidine Scrn (NEGATIVE) Ur Amphetamine Screen (NEGATIVE) U Methamphetamines Scrn (NEGATIVE) Urine MDMA Screen (NEGATIVE) U Benzodiazepines Scrn (NEGATIVE) U Cocaine Metab Screen (NEGATIVE) U Marijuana (THC) Screen (NEGATIVE) Hep Bs Antigen (Negative) Hep Bs Antibody (.) Hepatitis C Antibody (0.0-0.9) s/co ratio [place] IgG Antibody (Immune >0.99) index Blood Type Gel Antibody Screen Crossmatch 02/21/20 02/21/20 02/21/20 Range/Units 06:00 09:00 15:10 WBC (4.5-11.0) K/uL RBC (3.30-5.50) M/uL Hgb 8.2 L D (12.0-15.0) g/dL Hct 28.4 L (36.0-48.0) % MCV (80-98) fL MCH (27-31) pg MCHC (32-36) % Plt Count (150-400) K/uL Neut % (Auto) (36-66) % Lymph % (Auto) (24-44) % [place] % (Auto) (2-6) % Eos % (Auto) (2-4) % Baso % (Auto) (0-1) % Magnesium 6.3 H 6.0 H (1.8-2.4) mg/dL Lactate Dehydrogenase (82-234) U/L Urine Color (YELLOW) Urine Appearance (CLEAR) Urine pH (5.0-8.0) Ur Specific [place] (1.008-1.030) Urine Protein (NEGATIVE) mg/dL Urine Glucose (UA) (NEGATIVE) mg/dL Urine Ketones (NEGATIVE) mg/dL Urine Occult Blood (NEGATIVE) Urine Nitrite (NEGATIVE) Urine Bilirubin (NEGATIVE) Urine Urobilinogen (0.2-1.0) EU/dL Ur Leukocyte Esterase (NEGATIVE) Urine RBC Urine WBC Ur Epithelial Cells Amorphous Sediment Urine Bacteria Urine Mucus Urinalysis Comment Urine Opiates Screen (NEGATIVE) Ur Oxycodone Screen (NEGATIVE) Urine Methadone Screen (NEGATIVE) Ur Propoxyphene Screen (NEGATIVE) Ur Barbiturates Screen (NEGATIVE) Ur Tricyclics Screen (NEGATIVE) Ur Phencyclidine Scrn (NEGATIVE) Ur Amphetamine Screen (NEGATIVE) U Methamphetamines Scrn (NEGATIVE) Urine MDMA Screen (NEGATIVE) U Benzodiazepines Scrn (NEGATIVE) U Cocaine Metab Screen (NEGATIVE) U Marijuana (THC) Screen (NEGATIVE) Hep Bs Antigen (Negative) Hep Bs Antibody (.) Hepatitis C Antibody (0.0-0.9) s/co ratio [place] IgG Antibody (Immune >0.99) index Blood Type Gel Antibody Screen Crossmatch Med Orders - Current: Current Medications Acetaminophen (Tylenol) 650 mg PO Q4H PRN PRN Reason: mild pain or fever Last Admin: 02/21/20 08:36 Dose: 650 mg Ferrous Sulfate (Ferrous Sulfate) 325 mg PO BIDMEALS [facility] Last Admin: 02/21/20 09:25 Dose: 325 mg Calcium Gluconate 1 gm/ Sodium (Chloride) 110 mls @ 100 mls/hr IV ONETIME PRN PRN Reason: Other Ibuprofen (Motrin) 600 mg PO Q6H PRN PRN Reason: mild pain or fever Last Admin: 02/21/20 12:20 Dose: 600 mg Sodium Chloride (Saline Flush) 10 ml FLUSH ASDIRECTED PRN PRN Reason: Keep Vein Open Discontinued Medications Oxytocin/Sodium Chloride (Pitocin In Ns 20 Units/1,000 Ml) 20 unit in 1,000 mls @ 2,997 mls/hr IV ASDIRECTED KAELYN; Protocol Last Admin: 02/20/20 13:33 Dose: 999 munits/min, 2,997 mls/hr Magnesium Sulfate (Magnesium Sulfate In Water Premix) 40 gm in 1,000 mls @ 50 mls/hr IV .Q20H [facility] Stop: 02/21/20 13:59 Last Admin: 02/21/20 11:02 Dose: Not Given Magnesium Sulfate 2 gm/ Premix 50 mls @ 200 mls/hr IV Q15M [facility] Stop: 02/20/20 13:44 Last Admin: 02/20/20 13:43 Dose: 200 mls/hr Misoprostol (Cytotec) 800 mcg RECTAL ONETIME PRN PRN Reason: Excessive vaginal bleeding Stop: 02/20/20 14:00 Last Admin: 02/20/20 13:47 Dose: 800 mcg - Interaction Infant Disposition, : NICU - Recovery Exam Fundal Tone: Firm Fundal Level: 1 Fingerbreadths Below Umbilicus Fundal Placement: Midline Lochia Amount: Small Lochia Color: Rubra/Red Perineum Description: Intact, Minimal Bruising/Swelling Episiotomy/Laceration: None Bladder Status: Voiding Urinary Elimination: Voided - Exam General: Alert, Oriented HEENT: Pupils Equal, Pupils Reactive, EOMI, Mucous Membr. Moist/[place] Neck: Supple Lungs: Clear to Auscultation, Normal Respiratory Effort Cardiovascular: Regular Rate, Regular Rhythm GI/Abdominal Exam: Normal Bowel Sounds, Soft, Non-Tender, No Distention, Pelvis Stable Extremities: Normal Inspection, Non-Tender. No: Pedal Edema Skin: Warm, Dry, Intact Neurological: No New Focal Deficit Psy/Mental Status: Alert, Normal Mood - Problem List & Annotations (1) delivery SNOMED Code(s): 756331116, 025752079 Code(s): O60.10X0 - LABOR W DELIVERY, UNSP TRIMESTER, UNSP Status: Acute Current Visit: Yes (2) Vaginal delivery SNOMED Code(s): 023446183 Code(s): O80 - ENCOUNTER FOR FULL-TERM UNCOMPLICATED DELIVERY Status: Acute Current Visit: Yes (3) Anemia SNOMED Code(s): 367824461 Code(s): D64.9 - ANEMIA, UNSPECIFIED Status: Acute Current Visit: Yes Qualifiers: Anemia type: unspecified type Qualified Code(s): D64.9 - Anemia, unspecified (4) No care in current SNOMED Code(s): 516654545 Code(s): O09.30 - SUPRVSN OF PREG W INSUFFICIENT ANTENAT CARE, UNSP TRIMESTER Status: Acute Current Visit: Yes Qualifiers: Trimester: third trimester Qualified Code(s): O09.33 - Supervision of with insufficient care, third trimester (5) Methamphetamine abuse SNOMED Code(s): 496472639 Code(s): F15.10 - OTHER STIMULANT ABUSE, UNCOMPLICATED Status: Chronic Current Visit: No (6) Preeclampsia SNOMED Code(s): 835427255 Code(s): O14.90 - UNSPECIFIED PRE-ECLAMPSIA, UNSPECIFIED TRIMESTER Status: Acute Current Visit: Yes (7) Rubella nonimmune status, delivered, current hospitalization SNOMED Code(s): 367425210 Code(s): O99.89 - OTH DISEASES AND CONDITIONS COMPL PREG/CHLDBRTH; Z28.3 - UNDERIMMUNIZATION STATUS Status: Acute Current Visit: Yes - Problem List Review Problem List Initiated/Reviewed/Updated: Yes - My Orders Last 24 Hours: My Active Orders 02/20/20 16:07 Sodium Chloride 0.9% [Saline Flush] 10 ml FLUSH ASDIRECTED PRN 02/20/20 16:08 Bedrest Bedside Commode [RC] ASDIRECTED Intake and Output Strict [RC] ASDIRECTED Notify Provider [RC] PRN Notify Provider [RC] PRN Notify Provider [RC] PRN Notify Provider [RC] PRN Peripheral IV Care [RC] . DIRECTED Positioning, Left Lateral [RC] ASDIRECTED Deep Tendon Reflexes [WOMSER] Per Unit Routine Peripheral IV Insertion Adult [OM.PC] Routine Seizure Precautions [OM.PC] Routine 02/20/20 17:25 AMPHETAMINE SCREEN RFLX Routine 02/20/20 23:18 Calcium Gluconate 1 gm Sodium Chloride 0.9% [Normal Saline] 100 ml IV ONETIME 02/20/20 Dinner Regular Diet [DIET] 02/21/20 06:32 Transfuse Red Blood Cells [COMM] Routine 02/21/20 06:33 Communication Order [RC] ASDIRECTED 02/21/20 08:00 Ferrous Sulfate 325 mg PO BIDMEALS 02/21/20 10:38 Transfuse Red Blood Cells [COMM] Routine 02/21/20 15:04 Ready for Discharge [RC] PER UNIT ROUTINE - Assessment Assessment:: 02/20/20 39 yo Vaginal delivery at unknown gestation estimated 32-34 weeks, no tears EBL 300 at delivery, unknown amount at home delivery Methamphetamine use Elevated BP 02/21/20 40 yo day 1 PP Preeclampsia (urine protein >300, LDH 245) Low hemoglobin 5.9, Platelets 202 Magnesium lab 6.3, Magnesium running since delivery due to preeclampsia Pain controlled Patient slightly agitated but agrees to treatment and plan BP stabilized Perineum intact, FF, bleeding light Rubella non-immune Unknown GBS status Hep C, B, HIV all negative 02/21/20 Hemoglobin after 2 units PRBC's 8.2 Patient is alert, orientated, wanting to discharge AVSS, BP is stable Pt requesting control, discussed Nexplanon - Plan Plan:: 02/20/20 Assessment: on admission with no records available Complete upon check, admitted in active labor Unknown gestational age No care Plan: Imminent delivery upon arrival, baby will transfer to NICU, see labor delivery note for further -------- 02/20/20 labs all pending, will obtain UDS and meconium on baby if able Magnesium bolus and magnesium continuous drip due to elevated BP and labor Anticipate 24-48 hour stay Routine pp cares Social service consult 02/21/20 Wean magnesium down to 1 gram over the two hours and then stop. Last Magnesium level to be drawn at 0900. Monitor BP closely. Will transfuse 2 units PRBC's due to hemoglobin of 5.9 this morning. Anticipate discharge with no BP medications and a follow up blood pressure check in the clinic next week. Will potentially discharge patient this evening if blood pressure is stable and hemoglobin improves, hemoglobin 2 hours after last unit. With baby in NICU no MMR to be given at this time. 02/21/20 Patient would like Nexplanon placed today, will go to clinic for this after discharge here Will discharge today with stable BP, no BP medications Home on iron Recheck BP in clinic next Monday (this is scheduled) Warning signs reviewed with patient including returning with SOB, chest pain, calf pain, fever, lightheadedness, weakness
== END 2020-02-21 15:53 | disposition home or self-care (01) | DRG 805 ==
LOC: JP.OBCHECK 12:26 → JP.OB 12:54 → OBSVTOIN 13:06 → JP.OB 13:06 → JP.MS 17:47
PROVIDERS: ADMIT Advanced Practice Midwife; ATTEND Advanced Practice Midwife
PROC: 10E0XZZ Delivery of Products of Conception, External Approach (ICD-10-PCS; principal; 2020-02-20)
PROC: 30233N1 Transfusion of Nonautologous Red Blood Cells into Peripheral Vein, Percutaneous Approach (ICD-10-PCS; 2020-02-21)
DX: O99.02 Anemia complicating childbirth (principal); O60.14X0 Preterm labor third trimester with preterm delivery third trimester, not applicable or unspecified; Z37.0 Single live birth; O99.324 Drug use complicating childbirth; D64.9 Anemia, unspecified; O99.344 Other mental disorders complicating childbirth; F41.9 Anxiety disorder, unspecified; F43.10 Post-traumatic stress disorder, unspecified; F15.10 Other stimulant abuse, uncomplicated; O69.81X0 Labor and delivery complicated by cord around neck, without compression, not applicable or unspecified; Z3A.35 35 weeks gestation of pregnancy
CPT/HCPCS: 36415; 36430; 59409; 76815; 76815-26; 80053; 80305-QW; 80307; 81001; 83615; 83735; 84550; 85014; 85018; 85025; 86706; 86762; 86780; 86803; 86850; 86900; 86901; 86920; 86922; 87340; 87449; A9270-GY; J2590; J3475; P9016

== ENCOUNTER 2020-04-01 16:09 | Emergency (ER) | payer MEDICAID ==
[2020-04-01] MEDS ORDERED: LORazepam 0.5 MG Tab PO ONE (16:52)
--- NOTE | 2020-04-01 17:49 | EDM.PDOC ---
ED HPI GENERAL MEDICAL PROBLEM - General Chief Complaint: Chest Pain Stated Complaint: CHEST PAIN Time Seen by Provider: 04/01/20 16:39 Source of Information: Reports: Patient, Old Records, RN, RN Notes Reviewed History Limitations: Reports: No Limitations - History of Present Illness Onset: Today, Other Onset Date: 03/30/20 Duration: Day(s): Location: Reports: Chest Quality: Reports: Ache Severity: Moderate Improves with: Reports: Immobilization, Rest Worsens with: Reports: Other (Nothing helps) Context: Reports: Other (CP) Associated Symptoms: Reports: Chest Pain, Headaches Chest Pain Score (Numeric/FACES): 6 - Related Data Allergies Allergy/AdvReac Type Severity Reaction Status Date / Time amoxicillin Allergy Hives Verified 04/01/20 17:01 Home Meds: Home Meds Gabapentin [Neurontin] 300 mg PO QID 08/17/16 [History] Ferrous Sulfate 1 tab PO DAILY 04/01/20 [History] Pnv No.95/Ferrous Fum/Folic AC [ Vitamins Tablet] 1 tab PO DAILY 04/01/20 [History] QUEtiapine [SEROquel] 50 mg PO BEDTIME 04/01/20 [History] cloNIDine [Catapres] 1 tab PO BEDTIME 04/01/20 [History] Past Medical History HEENT History: Reports: Hard of Hearing, Impaired Vision Cardiovascular History: Reports: Heart Murmur Respiratory History: Reports: Asthma Gastrointestinal History: Reports: None 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 Psychiatric History: Reports: Anxiety, PTSD Hematologic History: Reports: Blood Transfusion(s) - Infectious Disease History Infectious Disease History: Reports: Chicken Pox - Past Surgical History Musculoskeletal Surgical History: Reports: ORIF Other Musculoskeletal Surgeries/Procedures:: left leg Social & Family History - Tobacco Use Smoking Status *Q: Light Tobacco Smoker Years of Tobacco use: 4 Packs/Tins Daily: 1 - Caffeine Use Caffeine Use: Reports: Coffee Other Caffeine Use: patient not answering questions at this time - Recreational Drug Use Recreational Drug Use: No ED ROS GENERAL - Review of Systems Review Of Systems: See Below Constitutional: Reports: Malaise, Weakness, Fatigue HEENT: Reports: No Symptoms Respiratory: Reports: No Symptoms Cardiovascular: Reports: Chest Pain Endocrine: Reports: No Symptoms GI/Abdominal: Reports: No Symptoms : Reports: No Symptoms Musculoskeletal: Reports: No Symptoms Skin: Reports: Diaphoresis Neurological: Reports: No Symptoms Psychiatric: Reports: No Symptoms Hematologic/Lymphatic: Reports: No Symptoms Immunologic: Reports: No Symptoms ED EXAM, GENERAL - Physical Exam Exam: See Below Exam Limited By: No Limitations General Appearance: Alert, WD/WN, No Apparent Distress Eye Exam: Bilateral Eye: Normal Inspection, PERRL Ear Exam: Bilateral Ear: Auricle Normal Nose: Normal Inspection Throat/Mouth: Normal Inspection, Normal Lips, Normal Teeth, Normal Gums, Normal Voice, No Airway Compromise Head: Normocephalic Neck: Normal Inspection, Full Range of Motion Respiratory/Chest: No Respiratory Distress, Lungs Clear, Normal Breath Sounds, No Accessory Muscle Use Cardiovascular: Normal Peripheral Pulses, Regular Rate, Rhythm, No Edema, No Gallop, No JVD, No Murmur, No Rub Peripheral Pulses: 2+: Radial (L), Radial (R), Dorsalis Pedis (L), Dorsalis Pedis (R) GI/Abdominal: Normal Bowel Sounds, Soft, Non-Tender, No Distention (Female) Exam: Deferred Rectal (Female) Exam: Deferred Back Exam: Normal Inspection, Full Range of Motion Extremities: Normal Inspection, Normal Range of Motion, Non-Tender, No Pedal Edema, Normal Capillary Refill Neurological: Alert, Oriented, CN II-XII Intact, Normal Cognition, Normal Reflexes, No Motor/Sensory Deficits Psychiatric: Normal Affect, Normal Mood Skin Exam: Warm, Dry, Intact, Normal Color, No Rash Lymphatic: No Adenopathy EKG INTERPRETATION EKG Date: 04/01/20 Time: 16:37 Rhythm: Other (SR LBBB) Rate (Beats/Min): 57 [place]: Normal P-Wave: Present (29) QRS: LBBB (12) ST-T: Normal (47) QT: Normal (482) Comparison: No Change Course - Vital Signs Last Recorded V/S: Last Vital Signs Temp 36.8 C 04/01/20 17:00 Pulse 55 L 04/01/20 18:09 Resp 16 04/01/20 18:09 BP 90/36 L 04/01/20 18:09 Pulse Ox 100 04/01/20 18:09 - Orders/Labs/Meds Orders: Active Orders 24 hr Category Date Time Status Chest 2V [CR] Stat Exams 04/01/20 16:55 Taken Labs: Laboratory Tests 04/01/20 04/01/20 04/01/20 Range/Units 17:07 17:07 17:13 Sodium 142 (140-148) mmol/L Potassium 4.2 (3.6-5.2) mmol/L Chloride 108 (100-108) mmol/L Carbon Dioxide 26 (21-32) mmol/L Anion Gap 8.1 (5.0-14.0) mmol/L BUN 13 D (7-18) mg/dL Creatinine 0.8 (0.6-1.0) mg/dL Est Cr Clr Drug Dosing 86.67 mL/min Estimated GFR (MDRD) > 60 (>60) Glucose 91 (74-106) mg/dL Calcium 8.1 L (8.5-10.1) mg/dL Magnesium 1.9 D (1.8-2.4) mg/dL Total Bilirubin 0.3 (0.2-1.0) mg/dL AST 18 (15-37) U/L ALT 29 (12-78) U/L Alkaline Phosphatase 129 H (46-116) U/L Creatine Kinase 47 (26-192) U/L Troponin I < 0.017 (0.000-0.056) ng/mL Total Protein 6.8 (6.4-8.2) g/dL Albumin 3.2 L (3.4-5.0) g/dL Globulin 3.6 H (2.3-3.5) g/dL Albumin/Globulin Ratio 0.9 L (1.2-2.2) Urine HCG, Qual Negative Meds: Medications Discontinued Medications Generic Name Dose Route Start Last Admin Trade Name Freq PRN Reason Stop Dose Admin Lorazepam 0.5 mg 04/01/20 16:52 04/01/20 17:22 Ativan PO 04/01/20 16:53 0.5 mg ONETIME ONE Administration - Re-Assessments/Exams Free Text/Narrative Re-Assessment/Exam: 04/01/20 18:01 EXAM: ROS with pt. See flow sheet. VSS. Labs and CXR. Appears all blood work and labs are negative. Once report on CXR dictaed, pt stable for d/c home Departure - Departure Time of Disposition: 18:05 Disposition: Home, Self-Care 01 Condition: Good Clinical Impression: Chest pain, unspecified Instructions: Nonspecific Chest Pain, Adult, [id number] Referrals: PCP,None [Primary Care Provider] - Forms: ED Department Discharge Care Plan Goals: Please call [phone] or seek medical care immediately if you experience chest pain or your condition worsens. Make an appointment with your regular doctor regarding your seroquel. Sepsis Event Note (ED) - Evaluation Sepsis Screening Result: No Definite Risk - Focused Exam Vital Signs: Vital Signs Temp Pulse Resp BP Pulse Ox 04/01/20 18:09 55 L 16 90/36 L 100 04/01/20 17:34 50 L 16 103/60 100 04/01/20 17:00 36.8 C 52 L 18 112/37 L 98 04/01/20 16:41 36.8 C 52 L 18 112/37 L 98 - My Orders Last 24 Hours: My Active Orders 04/01/20 16:55 Chest 2V [CR] Stat - Assessment/Plan Last 24 Hours: My Active Orders 04/01/20 16:55 Chest 2V [CR] Stat
[2020-04-01 18:10] VITALS: BP 90/36; PULSE 55
--- NOTE | 2020-04-02 08:57 | CR ---
CHEST: 2 view CLINICAL HISTORY:Chest pain COMPARISON:CT 2017 FINDINGS: The heart size, pulmonary vascularity and hilar structures are normal. No infiltrate effusion or pneumothorax is seen. IMPRESSION: No acute cardiopulmonary process.
== END 2020-04-01 18:46 | disposition home or self-care (01) ==
LOC: JP.ED 16:09
DX: R07.9 Chest pain, unspecified (principal); J45.909 Unspecified asthma, uncomplicated; F41.9 Anxiety disorder, unspecified; F17.210 Nicotine dependence, cigarettes, uncomplicated; Z79.899 Other long term (current) drug therapy; Z88.1 Allergy status to other antibiotic agents
CPT/HCPCS: 36415; 71046; 80053; 81025; 82550; 83735; 84484; 99285; A9270

== ENCOUNTER 2020-06-21 09:47 | Emergency (ER) | payer MEDICAID ==
[2020-06-21 10:11] VITALS: BP 140/84; PULSE 70
[2020-06-21] MEDS ORDERED: Bupivacaine 0.5%/EPINEPHrine 1:200,000 1.8 ML Cartridge INJECT ONE (10:24)
[2020-06-21] MEDS ORDERED: LORazepam 1 MG Tab PO ONE (11:08)
--- NOTE | 2020-06-21 11:25 | EDM.PDOC ---
ED HPI GENERAL MEDICAL PROBLEM - General Chief Complaint: ENT Problem Stated Complaint: LOWER DENTURES STUCK INTO GUM Time Seen by Provider: 06/21/20 10:20 Source of Information: Reports: Patient History Limitations: Reports: No Limitations - History of Present Illness INITIAL COMMENTS - FREE TEXT/NARRATIVE: 40-year-old female arrives with poorly fitting dentures that are stuck to her natural teeth on the left anterior mandible. It is too painful to remove, she has significant chronic anxiety and it is worse today. There is also tenderness. Onset: Unknown/Unsure (Tried to remove her dentures this morning and could not get them off) Associated Symptoms: Reports: Other (Anxiety) Left Lower Oral/Mouth Pain Score (Numeric/FACES): 8 - Related Data Allergies Allergy/AdvReac Type Severity Reaction Status Date / Time amoxicillin Allergy Hives Verified 06/21/20 10:11 Home Meds: Home Meds Gabapentin [Neurontin] 300 mg PO QID 08/17/16 [History] Ferrous Sulfate 1 tab PO DAILY 04/01/20 [History] Pnv No.95/Ferrous Fum/Folic AC [ Vitamins Tablet] 1 tab PO DAILY 04/01/20 [History] cloNIDine [Catapres] 0.1 mg PO QID 06/21/20 [History] Past Medical History HEENT History: Reports: Hard of Hearing, Impaired Vision Cardiovascular History: Reports: Heart Murmur Respiratory History: Reports: Asthma Gastrointestinal History: Reports: None 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 Psychiatric History: Reports: Anxiety, PTSD Hematologic History: Reports: Blood Transfusion(s) - Infectious Disease History Infectious Disease History: Reports: Chicken Pox - Past Surgical History Musculoskeletal Surgical History: Reports: ORIF Other Musculoskeletal Surgeries/Procedures:: left leg Social & Family History - Tobacco Use Smoking Status *Q: Current Every Day Smoker Years of Tobacco use: 4 Packs/Tins Daily: 0.5 - Caffeine Use Caffeine Use: Reports: Coffee Other Caffeine Use: patient not answering questions at this time - Recreational Drug Use Recreational Drug Use: Yes Recreational Drug Type: Reports: Methamphetamine ED ROS ENT - Review of Systems Review Of Systems: See Below Constitutional: Denies: Fever, Chills HEENT: Reports: Other (Left mandible pain, no swelling) GI/Abdominal: Denies: Nausea, Vomiting Neurological: Reports: No Symptoms. Denies: Headache Psychiatric: Reports: Anxiety ED EXAM, ENT - Physical Exam Exam: See Below Exam Limited By: No Limitations General Appearance: Alert, Anxious Mouth/Throat: Other (The curved wire on the left lower dentures are embedded into the crease between the second canine and first molar, there is a small amount of gingival inflammation) Respiratory/Chest: No Respiratory Distress Course - Vital Signs Last Recorded V/S: Last Vital Signs Temp 97.5 F 06/21/20 10:09 Pulse 70 06/21/20 10:09 Resp 16 06/21/20 10:09 BP 140/84 06/21/20 10:09 Pulse Ox 99 06/21/20 10:09 - Orders/Labs/Meds Meds: Medications Discontinued Medications Generic Name Dose Route Start Last Admin Trade Name Bhumi PRN Reason Stop Dose Admin Bupivacaine HCl/Epinephrine Bitart 1.8 ml 06/21/20 10:24 06/21/20 10:44 Marcaine 0.5%/Epinephrine 1:200,000 INJECT 06/21/20 10:25 1.8 ml ONETIME ONE Administration Lorazepam 1 mg 06/21/20 11:08 06/21/20 11:13 Ativan PO 06/21/20 11:09 1 mg ONETIME ONE Administration - Re-Assessments/Exams Free Text/Narrative Re-Assessment/Exam: 06/21/20 13:46 A Sensorcaine block was used under the tooth and the inferior alveolar nerve on the left side. The dentures were then able to be manipulated off, there was a small amount of irritation to the underlying gingiva. I advised the patient not to replace the dentures until she talks to her dentist. She was given 1 mg of p.o. Ativan for her anxiety today. Departure - Departure Time of Disposition: 11:33 Disposition: Home, Self-Care 01 Clinical Impression: Ill-fitting dentures - Discharge Information Instructions: Acute Pain, Adult Referrals: PCP,None [Primary Care Provider] - Forms: ED Department Discharge Care Plan Goals: Take some ibuprofen for pain control and do not wear dentures until discussing with your dentist. Sepsis Event Note (ED) - Evaluation Sepsis Screening Result: No Definite Risk - Focused Exam Vital Signs: Vital Signs Temp Pulse Resp BP Pulse Ox 09/13/20 10:09 97.5 F 70 16 140/84 99
== END 2020-06-21 11:33 | disposition home or self-care (01) ==
LOC: JP.ED 09:47
DX: K08.89 Other specified disorders of teeth and supporting structures (principal); F41.9 Anxiety disorder, unspecified; J45.909 Unspecified asthma, uncomplicated; F17.210 Nicotine dependence, cigarettes, uncomplicated; Z88.1 Allergy status to other antibiotic agents; Z79.899 Other long term (current) drug therapy
CPT/HCPCS: 64400; 99283; A9270; J3490

== ENCOUNTER 2020-08-10 06:06 | Emergency (ER) | payer MEDICAID ==
[2020-08-10] MEDS ORDERED: LORazepam 0.5 MG Tab PO ONE ×2 (06:26→10:35)
[2020-08-10 06:27] VITALS: BP 124/80; PULSE 72
--- NOTE | 2020-08-10 06:30 | EDM.PDOCBH ---
<OfficerKenneth - Last Filed: 08/10/20 06:27> ED HPI GENERAL MEDICAL PROBLEM - General Chief Complaint: Behavioral/Psych Stated Complaint: MEDICAL VIA [facility] Time Seen by Provider: 08/10/20 06:26 Source of Information: Reports: Patient, EMS, RN Notes Reviewed History Limitations: Reports: No Limitations - History of Present Illness INITIAL COMMENTS - FREE TEXT/NARRATIVE: 40-year-old female presents emergency department today via EMS services she is well-known to the emergency department does admit to using methamphetamine is quite anxious difficult to control difficult to obtain review of systems - Related Data Allergies Allergy/AdvReac Type Severity Reaction Status Date / Time amoxicillin Allergy Hives Verified 08/10/20 06:24 Home Meds: Home Meds Gabapentin [Neurontin] 900 mg PO QID 08/17/16 [History] cloNIDine [Catapres] 0.1 mg PO QID 06/21/20 [History] Baclofen 10 mg PO DAILY 08/10/20 [History] FLUoxetine HCl [Fluoxetine HCl] 20 mg PO DAILY 08/10/20 [History] Past Medical History HEENT History: Reports: Hard of Hearing, Impaired Vision Cardiovascular History: Reports: Heart Murmur Respiratory History: Reports: Asthma Gastrointestinal History: Reports: None 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 Psychiatric History: Reports: Anxiety, PTSD Hematologic History: Reports: Blood Transfusion(s) - Infectious Disease History Infectious Disease History: Reports: Chicken Pox - Past Surgical History Musculoskeletal Surgical History: Reports: ORIF Other Musculoskeletal Surgeries/Procedures:: left leg Social & Family History - Tobacco Use Tobacco Use Status *Q: Current Every Day Tobacco User Years of Tobacco use: 25 Packs/Tins Daily: 1 - Caffeine Use Caffeine Use: Reports: Coffee Other Caffeine Use: patient not answering questions at this time - Recreational Drug Use Recreational Drug Use: Yes Drug Use in Last 12 Months: Yes Recreational Drug Type: Reports: Methamphetamine Recreational Drug Last Use: t-2 ED ROS GENERAL - Review of Systems Review Of Systems: Unable To Obtain Reason Not Obtained: Anxiety with psychosis ED EXAM, BEHAVIORAL HEALTH - Physical Exam Exam: See Below Exam Limited By: Physical Impairment General Appearance: Anxious, Moderate Distress Eye Exam: Bilateral Eye: Normal Inspection, PERRL Ears: Normal External Exam, Normal Canal, Hearing Grossly Normal, Normal TMs Nose: Normal Inspection, Normal Mucosa, No Blood Throat/Mouth: Normal Inspection, Normal Lips, Normal Teeth, Normal Gums, Normal Oropharynx, Normal Voice, No Airway Compromise Head: Atraumatic, Normocephalic Neck: Normal Inspection, Supple, Non-Tender, Full Range of Motion Respiratory/Chest: No Respiratory Distress, Lungs Clear, Normal Breath Sounds, No Accessory Muscle Use, Chest Non-Tender Cardiovascular: Regular Rate, Rhythm, No Murmur GI/Abdominal: Soft, Non-Tender Extremities: No Pedal Edema Psychiatric: Alert, Poor Eye Contact, Flight of Ideas. No: Homicidal Thoughts, Suicidal Thoughts, Visual Hallucinations, Threatening Behavior Departure - Departure Disposition: Home, Self-Care 01 Clinical Impression: Methamphetamine abuse - Discharge Information Instructions: Methamphetamines Use Disorder Referrals: PCP,None [Primary Care Provider] - Forms: ED Department Discharge Additional Instructions: Continue your usual medications. F/U with your provider in the clinic. Return as needed. Sepsis Event Note (ED) - Evaluation Sepsis Screening Result: No Definite Risk <Vinnie Garcia - Last Filed: 08/10/20 19:44> Departure - Departure Time of Disposition: 19:44 Condition: Fair - Discharge Information *PRESCRIPTION DRUG MONITORING PROGRAM REVIEWED*: No *COPY OF PRESCRIPTION DRUG MONITORING REPORT IN PATIENT PORTER: No <Marge Dickson - Last Filed: 08/11/20 07:48> COURSE, BEHAVIORAL HEALTH COMP - Course Vital Signs: Last Vital Signs Temp 36.4 C 08/10/20 06:26 Pulse 72 08/10/20 06:26 Resp 18 08/10/20 06:26 BP 124/80 08/10/20 06:26 Pulse Ox 96 08/10/20 06:26 WAS DISCUSSED WITH Orders, Labs, Meds: Laboratory Tests 08/10/20 08/10/20 08/10/20 Range/Units 06:26 06:37 06:37 WBC 7.3 (4.5-11.0) K/uL RBC 5.06 (3.30-5.50) M/uL Hgb 11.4 L D (12.0-15.0) g/dL Hct 37.6 (36.0-48.0) % MCV 74 L (80-98) fL MCH 23 L (27-31) pg MCHC 30 L (32-36) % Plt Count 423 H (150-400) K/uL Neut % (Auto) 71 H (36-66) % Lymph % (Auto) 19 L (24-44) % [place] % (Auto) 9 H (2-6) % Eos % (Auto) 0 L (2-4) % Baso % (Auto) 0 (0-1) % Sodium 137 L (140-148) mmol/L Potassium 3.9 (3.6-5.2) mmol/L Chloride 103 (100-108) mmol/L Carbon Dioxide 23 (21-32) mmol/L Anion Gap 14.9 H (5.0-14.0) mmol/L BUN 7 (7-18) mg/dL Creatinine 0.9 (0.6-1.0) mg/dL Est Cr Clr Drug Dosing 75.52 mL/min Estimated GFR (MDRD) > 60 (>60) Glucose 102 (74-106) mg/dL Calcium 8.7 (8.5-10.1) mg/dL Urine HCG, Qual Urine Opiates Screen Cancelled Ur Oxycodone Screen Cancelled Urine Methadone Screen Cancelled Ur Propoxyphene Screen Cancelled Ur Barbiturates Screen Cancelled Ur Tricyclics Screen Cancelled Ur Phencyclidine Scrn Cancelled Ur Amphetamine Screen Cancelled U Methamphetamines Scrn Cancelled Urine MDMA Screen Cancelled U Benzodiazepines Scrn Cancelled U Cocaine Metab Screen Cancelled U Marijuana (THC) Screen Cancelled Ethyl Alcohol mg/dL 08/10/20 08/10/20 08/10/20 Range/Units 06:37 13:00 13:38 WBC (4.5-11.0) K/uL RBC (3.30-5.50) M/uL Hgb (12.0-15.0) g/dL Hct (36.0-48.0) % MCV (80-98) fL MCH (27-31) pg MCHC (32-36) % Plt Count (150-400) K/uL Neut % (Auto) (36-66) % Lymph % (Auto) (24-44) % [place] % (Auto) (2-6) % Eos % (Auto) (2-4) % Baso % (Auto) (0-1) % Sodium (140-148) mmol/L Potassium (3.6-5.2) mmol/L Chloride (100-108) mmol/L Carbon Dioxide (21-32) mmol/L Anion Gap (5.0-14.0) mmol/L BUN (7-18) mg/dL Creatinine (0.6-1.0) mg/dL Est Cr Clr Drug Dosing mL/min Estimated GFR (MDRD) (>60) Glucose (74-106) mg/dL Calcium (8.5-10.1) mg/dL Urine HCG, Qual Negative Urine Opiates Screen Negative Ur Oxycodone Screen Negative Urine Methadone Screen Negative Ur Propoxyphene Screen Negative Ur Barbiturates Screen Negative Ur Tricyclics Screen Negative Ur Phencyclidine Scrn Negative Ur Amphetamine Screen Presumptive positive H U Methamphetamines Scrn Presumptive positive H Urine MDMA Screen Negative U Benzodiazepines Scrn Presumptive positive H U Cocaine Metab Screen Negative U Marijuana (THC) Screen Negative Ethyl Alcohol 4 mg/dL Medications Discontinued Medications Generic Name Dose Route Start Last Admin Trade Name Freq PRN Reason Stop Dose Admin Sodium Chloride 1,000 mls @ 999 mls/hr 08/10/20 12:00 08/10/20 14:15 Normal Saline IV 999 mls/hr ASDIRECTED KAELYN Administration Sodium Chloride 1,000 mls @ 999 mls/hr 08/10/20 15:15 Normal Saline IV ASDIRECTED KAELYN Lorazepam 0.5 mg 08/10/20 06:26 08/10/20 06:41 Ativan PO 08/10/20 06:27 0.5 mg ONETIME ONE Administration Lorazepam 0.5 mg 08/10/20 10:35 08/10/20 10:54 Ativan PO 08/10/20 10:36 0.5 mg ONETIME ONE Administration Medical Clearance: 08/10/20 14:42 pt has been difficult to arose most of the day. Her urine shows Meth and benzodiapines. She also has amphetamine. She has been very lethargic after a verY agitAT ED PERIOD AT FIRST. wE ARE ATTEMPTING TO REACH HER ARMS WORKER. 08/10/20 14:59 PT [place] DISCUSSED WITH HER ARMS WORKER AND EVIDENTLY SHE HAS NOT BEEN DOING WELL SINCE SHE HAD TO GIVE UP HER BABY THAT SHE DELIVERED BECAUSE SHE WAS POSITIVE FOR METH. sHE DOES HAVE A BOYFRIEND THAT SHE USES FOR HER SUPPORT SYSTEM. 08/10/20 15:02
[2020-08-10] MEDS ORDERED: Sodium Chloride 0.9% 1,000 ML IV SCH ×2 (12:00→15:15)
== END 2020-08-10 19:53 | disposition home or self-care (01) ==
LOC: JP.ED 06:06
DX: F15.10 Other stimulant abuse, uncomplicated (principal); J45.909 Unspecified asthma, uncomplicated; F41.9 Anxiety disorder, unspecified; F17.210 Nicotine dependence, cigarettes, uncomplicated; Z88.1 Allergy status to other antibiotic agents; Z79.899 Other long term (current) drug therapy
CPT/HCPCS: 36415; 80048; 80305; 80307; 81025; 85025; 99284; A9270; J7030

== ENCOUNTER 2021-04-20 13:37 | Emergency (ER) | payer MEDICAID ==
[2021-04-20] MEDS ORDERED: Sodium Chloride 0.9% 10 ML Syringe FLUSH PRN ×2 (13:45)
[2021-04-20] MEDS ORDERED: diphenhydrAMINE 50 MG/ML SDV IVPUSH ONE (13:45)
[2021-04-20] MEDS ORDERED: methylPREDNISolone Sodium Succinate 125 MG/2 ML SDV IV ONE (13:45)
[2021-04-20] MEDS ORDERED: EPINEPHrine 1 MG/ML SDV IM ONE (13:45)
--- NOTE | 2021-04-20 13:48 | EDM.PDOC ---
ED HPI GENERAL MEDICAL PROBLEM - General Chief Complaint: Bite:Animal, Insect Stated Complaint: ALLERGIC REACTION TO STING Time Seen by Provider: 04/20/21 13:45 Source of Information: Reports: Patient, RN Notes Reviewed History Limitations: Reports: No Limitations - History of Present Illness INITIAL COMMENTS - FREE TEXT/NARRATIVE: 41-year-old female presents emergency department day complaint of throat swelling, she has a known history of allergy to bees could not find her EpiPen was stung in the hand by a bee just prior to presentation ED states she is breathing okay but her throat is scratchy - Related Data Allergies Allergy/AdvReac Type Severity Reaction Status Date / Time amoxicillin Allergy Hives Verified 08/10/20 06:24 Home Meds: Home Meds Gabapentin [Neurontin] 900 mg PO QID 08/17/16 [History] cloNIDine [Catapres] 0.1 mg PO QID 06/21/20 [History] Baclofen 10 mg PO DAILY 08/10/20 [History] FLUoxetine HCl [Fluoxetine HCl] 20 mg PO DAILY 08/10/20 [History] EPINEPHrine [Epipen 2-Jorgito] 0.3 mg IJ ONETIME PRN #2 auto.injct 04/20/21 [Rx] Past Medical History HEENT History: Reports: Hard of Hearing, Impaired Vision Cardiovascular History: Reports: Heart Murmur Respiratory History: Reports: Asthma 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 Psychiatric History: Reports: Anxiety, PTSD Hematologic History: Reports: Blood Transfusion(s) - Infectious Disease History Infectious Disease History: Reports: Chicken Pox - Past Surgical History Musculoskeletal Surgical History: Reports: ORIF Other Musculoskeletal Surgeries/Procedures:: left leg Social & Family History - Tobacco Use Tobacco Use Status *Q: Current Every Day Tobacco User - Caffeine Use Caffeine Use: Reports: Coffee Other Caffeine Use: patient not answering questions at this time ED ROS GENERAL - Review of Systems Review Of Systems: See Below Constitutional: Reports: No Symptoms HEENT: Reports: Throat Swelling Respiratory: Reports: No Symptoms Cardiovascular: Reports: No Symptoms ED EXAM, ANIMAL BITE - Physical Exam Exam: See Below Exam Limited By: No Limitations General Appearance: Alert, WD/WN, No Apparent Distress Throat/Mouth: Normal Inspection, Normal Lips, Normal Teeth, Normal Gums, Normal Oropharynx, Normal Voice, No Airway Compromise Respiratory/Chest: No Respiratory Distress, Lungs Clear, Normal Breath Sounds, No Accessory Muscle Use, Chest Non-Tender Cardiovascular: Regular Rate, Rhythm, No Murmur Course - Vital Signs Last Recorded V/S: Last Vital Signs Temp 97.1 F 04/20/21 13:51 Pulse 95 04/20/21 14:29 Resp 22 H 04/20/21 14:29 BP 153/72 H 04/20/21 14:29 Pulse Ox 99 04/20/21 13:54 - Orders/Labs/Meds Orders: Active Orders 24 hr Category Date Time Status Peripheral IV Care [RC] . DIRECTED Care 04/20/21 13:46 Active Sodium Chloride 0.9% [Saline Flush] Med 04/20/21 13:45 Active 10 ml FLUSH ASDIRECTED PRN Sodium Chloride 0.9% [Saline Flush] Med 04/20/21 13:45 Active 10 ml FLUSH ASDIRECTED PRN Peripheral IV Insertion Adult [OM.PC] Urgent Oth 04/20/21 13:45 Ordered Medication Orders Sodium Chloride (Sodium Chloride 0.9% 10 Ml Syringe) 10 ml FLUSH ASDIRECTED PRN PRN Reason: Keep Vein Open Sodium Chloride (Sodium Chloride 0.9% 10 Ml Syringe) 10 ml FLUSH ASDIRECTED PRN PRN Reason: Keep Vein Open Meds: Medications Generic Name Dose Route Start Last Admin Trade Name Freq PRN Reason Stop Dose Admin Sodium Chloride 10 ml 04/20/21 13:45 Sodium Chloride 0.9% 10 Ml Syringe FLUSH ASDIRECTED PRN Keep Vein Open Sodium Chloride 10 ml 04/20/21 13:45 Sodium Chloride 0.9% 10 Ml Syringe FLUSH ASDIRECTED PRN Keep Vein Open Discontinued Medications Generic Name Dose Route Start Last Admin Trade Name Freq PRN Reason Stop Dose Admin Diphenhydramine HCl 50 mg 04/20/21 13:45 04/20/21 13:53 Diphenhydramine 50 Mg/Ml Sdv IVPUSH 04/20/21 13:46 50 mg ONETIME ONE Administration Epinephrine HCl 0.4 mg 04/20/21 13:45 04/20/21 13:49 Epinephrine 1 Mg/Ml Sdv IM 04/20/21 13:46 0.4 mg ONETIME ONE Administration Lorazepam 0.5 mg 04/20/21 14:02 04/20/21 14:09 Lorazepam 2 Mg/Ml Sdv IVPUSH 04/20/21 14:03 0.5 mg ONETIME ONE Administration Methylprednisolone Sodium Succinate 125 mg 04/20/21 13:45 04/20/21 13:55 Methylprednisolone Sodium Succinate 125 Mg/2 Ml Sdv IV 04/20/21 13:46 125 mg ONETIME ONE Administration Departure - Departure Time of Disposition: 15:13 Disposition: Home, Self-Care 01 Condition: Fair Clinical Impression: Allergic reaction Qualifiers: Encounter type: initial encounter Qualified Code(s): T78.40XA - Allergy, unspecified, initial encounter - Discharge Information Prescriptions: EPINEPHrine [Epipen 2-Jorgito] 0.3 mg IJ ONETIME PRN #2 auto.injct PRN Reason: Allergies Instructions: Animal Bite, Adult, [id number], Insect Bite, Adult, [id number] Referrals: PCP,None [Primary Care Provider] - Forms: ED Department Discharge Additional Instructions: Use your EpiPen if needed for an allergic reaction, please followup with your primary care provider in 3-5 days if not better, please call return to the emergency department with worsening of symptoms. Sepsis Event Note (ED) - Focused Exam Vital Signs: Vital Signs Temp Pulse Resp BP Pulse Ox 04/20/21 14:29 95 22 H 153/72 H 04/20/21 14:14 88 14 148/70 H 04/20/21 14:13 91 15 170/77 H 04/20/21 13:54 112 H 172/85 H 99 04/20/21 13:51 97.1 F 83 16 132/75 97 - My Orders Last 24 Hours: My Active Orders 04/20/21 13:45 Sodium Chloride 0.9% [Saline Flush] 10 ml FLUSH ASDIRECTED PRN Sodium Chloride 0.9% [Saline Flush] 10 ml FLUSH ASDIRECTED PRN Peripheral IV Insertion Adult [OM.PC] Urgent 04/20/21 13:46 Peripheral IV Care [RC] . DIRECTED - Assessment/Plan Last 24 Hours: My Active Orders 04/20/21 13:45 Sodium Chloride 0.9% [Saline Flush] 10 ml FLUSH ASDIRECTED PRN Sodium Chloride 0.9% [Saline Flush] 10 ml FLUSH ASDIRECTED PRN Peripheral IV Insertion Adult [OM.PC] Urgent 04/20/21 13:46 Peripheral IV Care [RC] . DIRECTED Plan: Assessment Acuity = acute Site and laterality = allergic reaction Etiology = bee sting Manifestations = none Location of injury = Home Lab values = none Plan Good improvement combination epinephrine, Solu-Medrol, Benadryl, I did refill her EpiPen medication faxed to [facility] pharmacy, I talked to her about staying longer for observation in case of a rebound she declined This note was dictated using [employer] voice recognition software please call with any questions on syntax or grammar.
[2021-04-20] MEDS ORDERED: LORazepam 2 MG/ML SDV IVPUSH ONE (14:02)
[2021-04-20 15:20] VITALS: BP 119/59; PULSE 85
== END 2021-04-20 15:39 | disposition home or self-care (01) ==
LOC: JP.ED 13:37
DX: T63.441A Toxic effect of venom of bees, accidental (unintentional), initial encounter (principal); J45.909 Unspecified asthma, uncomplicated; Z88.0 Allergy status to penicillin; Z79.899 Other long term (current) drug therapy; Z72.0 Tobacco use
CPT/HCPCS: 96372; 96374; 96375; 99283; J0171; J1200; J2060; J2930

== ENCOUNTER 2021-06-09 19:05 | Emergency (ER) | payer MEDICAID ==
[2021-06-09 19:39] VITALS: BP 110/68; PULSE 80
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
--- NOTE | 2021-06-10 09:05 | CR ---
Lumbar Spine 2 or 3V CLINICAL HISTORY: Low back pain FINDINGS: There is very minimal anterior wedging of L1. Chronology is uncertain. There is a mild long dextroscoliotic curvature of the thoracolumbar spine. There is some straightening of the lumbar lordosis IMPRESSION: Minimal anterior which formerly of L1 of uncertain chronology. Straightening of lumbar lordosis may be chronic or due to spasm Dextroscoliosis
== END 2021-06-09 20:48 | disposition home or self-care (01) ==
LOC: JP.ED 19:05
DX: M54.5 Low back pain (principal); F10.10 Alcohol abuse, uncomplicated; Z88.0 Allergy status to penicillin; Z72.0 Tobacco use; W18.39XA Other fall on same level, initial encounter
CPT/HCPCS: 72100; 72100-26; 99283-25

== ENCOUNTER 2021-06-14 02:39 | Emergency (ER) | payer MEDICAID ==
[2021-06-14 02:54] VITALS: BP 116/70; PULSE 80
--- NOTE | 2021-06-14 02:55 | EDM.PDOC ---
ED HPI GENERAL MEDICAL PROBLEM - General Chief Complaint: Back Pain or Injury Stated Complaint: LEFT SIDE/BACK PAIN Time Seen by Provider: 06/14/21 02:53 Source of Information: Reports: Patient, Family History Limitations: Reports: No Limitations, Other (pain, hard of hearing does not have hearing aids in.) - History of Present Illness INITIAL COMMENTS - FREE TEXT/NARRATIVE: Elizabeth Villalobos presents with her male partner from home via wheelchair. Patient notes severe pain after a fall a few days ago from approximate 8 foot fence onto the ground. At that time she was evaluated this hospital and had x- rays of her lumbar spine which raise the possibility of a small compression fracture. She was treated / discharged home. She presents now having ongoing severe pain from her left shoulder/neck down to her left leg with associated numbness. Pain is constant unrelenting and worse over the last 5 hours despite tylenol and gabapentin. She denies any interval falls. She denies any headache, shortness of breath, cough, fever, chills, loss of taste or smell. No diarrhea or bloody stools. Per patient male partner does note she is on gabapentin as she has had a previous emily placed in her left leg remotely and has chronic pain in this area. Patient denies any bowel or bladder loss. Denies any saddle numbness. Left Back Pain Score (Numeric/FACES): 10 - Related Data Allergies Allergy/AdvReac Type Severity Reaction Status Date / Time amoxicillin Allergy Hives Verified 06/14/21 02:50 Home Meds: Home Meds Gabapentin [Neurontin] 900 mg PO QID 08/17/16 [History] cloNIDine [Catapres] 0.1 mg PO QID 06/21/20 [History] EPINEPHrine [Epipen 2-Jorgito] 0.3 mg IJ ONETIME PRN #2 auto.injct 04/20/21 [Rx] Acetaminophen [Tylenol] 2 tab PO Q4H 06/14/21 [History] Aspirin [Clay Chewable Aspirin] 1 tab PO DAILY 06/14/21 [History] Past Medical History HEENT History: Reports: Hard of Hearing, Impaired Vision Cardiovascular History: Reports: Heart Murmur Respiratory History: Reports: Asthma 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 Psychiatric History: Reports: Anxiety, PTSD Hematologic History: Reports: Blood Transfusion(s) - Infectious Disease History Infectious Disease History: Reports: Chicken Pox - Past Surgical History Musculoskeletal Surgical History: Reports: ORIF Other Musculoskeletal Surgeries/Procedures:: left leg Social & Family History - Caffeine Use Caffeine Use: Reports: None Other Caffeine Use: patient not answering questions at this time - Living Situation & Occupation Living situation: Reports: with Significant Other (lives at [facility], [place], [place].) Occupation: Unemployed ED ROS GENERAL - Review of Systems Review Of Systems: See Below (limited, patient notes severe pain, she is hard of hearing and also difficult to understand when talking, she uses simple vocabulary.) ED EXAM,LOWER BACK PAIN/INJURY - Physical Exam Exam: See Below Exam Limited By: Other General Appearance: Alert, Other (Uncomfortable appearing initially in wheelchair undressed for complete trauma evaluation and upon repeat assessment patient is writhing in pain rolling back and forth on examination cart.) Eye Exam: Bilateral Eye: EOMI, PERRL, Other (no midface or scalp trauma) Ears: Normal External Exam, Normal TMs, Hearing Loss Nose: Normal Inspection, No Blood. No: Nasal Tenderness, Nasal Deformity, Clear Rhinorrhea, Nasal Flaring Throat/Mouth: Normal Inspection Head: Atraumatic Neck: Normal Inspection, Tender Lateral Respiratory/Chest: No Respiratory Distress, Lungs Clear, Normal Breath Sounds, No Accessory Muscle Use. No: Respiratory Distress Cardiovascular: Normal Peripheral Pulses, No Edema, No Gallop, No JVD, No Rub GI/Abdominal: Normal Bowel Sounds, Soft, Non-Tender, No Organomegaly, No Distention, No Mass, Pelvis Stable. No: Guarding, Rebound, Abnormal Bowel Sounds Rectal (Female) Exam: Deferred Back Exam: CVA Tenderness (L), Paraspinal Tenderness, Other (Patient has tenderness over her left trapezius, left scapula, left flank, left paraspinous musculature and superior left buttock.) Extremities: No Pedal Edema, Normal Capillary Refill, Other (Old scar noted of lower extremity. Compartments are soft. There is no joint swelling or joint warmth. No pain with range of motion of the knee, ankle or hips.) Neurological: Alert, No Motor/Sensory Deficits, Oriented x 3, Other (Patient uses simple vocabulary. GCS is 15. She has symmetric smile. Her speech is simple and somewhat difficult to understand although her male partner notes is her baseline.) DTR - Lower Extremities: 2+: Knee (R), Knee (L) Psychiatric: Anxious, Other (Patient admits to alcohol use days ago when the fall occurred. No alcohol use since then. Denies being threatened or abused.) Skin Exam: Warm, Dry, No Rash, Ecchymosis, Other (There is ecchymosis over her superior buttock.). No: Jaundice, Mottled, Pallor, Petechiae, Wound/Incision Lymphatic: No Adenopathy #1 Interpretation EKG Date: 06/14/21 Time: 03:49 Rhythm: NSR Rate (Beats/Min): 69 [place]: Normal P-Wave: Present QRS: LBBB ST-T: Normal QT: Normal Comparison: NA - No Prior EKG Course - Vital Signs Text/Narrative:: Old EKG was retrieved from the EMR and reviewed from 04/01/2020 in comparison to today's EKG 06/14/2021. The left bundle branch block that is present today was previously noted on the April 01, 2020 EKG. there has been no interval change. 0409: CBC noted. No previous CBC available in our records but past medical history does note anemia. Patient's BMP is also reviewed -potassium at upper limits normal. hCG qualitative negative. pain improved. vitals stable. awaiting CT's C spine, CAP: trauma studies. 0531: patient back from CT scan, she is on her phone. male partner asking for discharge. awaiting imaging results. 0557: The CT reports nocturnal reads by Dr. Venegas. CT C-spine no acute fracture. Mild motion artifact. No emergent pathology. CT chest abd pelvis. Mild motion artifact. No definitive bony abnormalities. No emergent pulmonary pathology. No emergent abdominal pathology. Subtle L1 compression fracture findings noted previously on lumbar spine x-rays last week. No acute fractures otherwise. No emergent traumatic findings. Cannot exclude subtle rib fracture due to motion artifact. Patient is stable or discharge. At times conditions change or evolve. Please return for discharge instructions. Please return if any other acute concerns. Primary care follow-up is indicated closely. Do not drive today. Discharged home with male partner who be driving. Continue home medications and gabapentin. MDM: Patient presents with diffuse pain from her left trapezius down to her left thigh. This is status post fall few days ago with a moderate mechanism. Patient had plain film x-rays lumbar spine which raise possibility of a subtle compression fracture at that time. today, cardiac work-up is negative. Patient has a chronic low bundle-branch block. Patient advanced imaging of the C- spine, chest and pelvis shows no emergent pathology or displaced fractures. Patient is neurologically intact and stable for discharge. Life threats been excluded. This chart completed with voice recognition and could include grammar, punctuation and/or spelling errors etc. Follow-up with primary care provider in 2 days. Continue chronic gabapentin and Tylenol for pain. Upon repeat assessment patient's pain is controlled has been noted to be in her telephone and quite comfortable interactive lucid and her male partner is driving. Last Recorded V/S: Last Vital Signs Temp 36.4 C 06/14/21 02:53 Pulse 80 06/14/21 02:53 Resp 18 06/14/21 02:53 BP 116/70 06/14/21 02:53 Pulse Ox 98 06/14/21 02:53 - Orders/Labs/Meds Orders: Active Orders 24 hr Category Date Time Status EKG 12 Lead [EK] Stat Ther 06/14/21 03:18 Ordered Labs: Laboratory Tests 06/14/21 06/14/21 06/14/21 Range/Units 03:25 03:25 03:25 WBC 6.4 (4.5-11.0) K/uL RBC 4.48 (3.30-5.50) M/uL Hgb 9.4 L D (12.0-15.0) g/dL Hct 31.2 L (36.0-48.0) % MCV 70 L (80-98) fL MCH 21 L (27-31) pg MCHC 30 L (32-36) % Plt Count (150-400) K/uL Neut % (Auto) 54.6 (36-66) % Lymph % (Auto) 34.0 (24-44) % [place] % (Auto) 8.6 H (2-6) % Eos % (Auto) 2.2 (2-4) % Baso % (Auto) 0.6 (0-1) % Sodium 135 L (140-148) mmol/L Potassium 5.6 H (3.6-5.2) mmol/L Chloride 104 (100-108) mmol/L Carbon Dioxide 23 (21-32) mmol/L Anion Gap 13.6 (5.0-14.0) mmol/L BUN 10 (7-18) mg/dL Creatinine 0.8 (0.6-1.0) mg/dL Est Cr Clr Drug Dosing 84.11 mL/min Estimated GFR (MDRD) > 60 (>60) Glucose 87 (74-106) mg/dL Calcium 8.5 (8.5-10.1) mg/dL Troponin I (0.000-0.056) ng/mL HCG, Qual Negative 06/14/21 Range/Units 03:25 WBC (4.5-11.0) K/uL RBC (3.30-5.50) M/uL Hgb (12.0-15.0) g/dL Hct (36.0-48.0) % MCV (80-98) fL MCH (27-31) pg MCHC (32-36) % Plt Count (150-400) K/uL Neut % (Auto) (36-66) % Lymph % (Auto) (24-44) % [place] % (Auto) (2-6) % Eos % (Auto) (2-4) % Baso % (Auto) (0-1) % Sodium (140-148) mmol/L Potassium (3.6-5.2) mmol/L Chloride (100-108) mmol/L Carbon Dioxide (21-32) mmol/L Anion Gap (5.0-14.0) mmol/L BUN (7-18) mg/dL Creatinine (0.6-1.0) mg/dL Est Cr Clr Drug Dosing mL/min Estimated GFR (MDRD) (>60) Glucose (74-106) mg/dL Calcium (8.5-10.1) mg/dL Troponin I < 0.017 (0.000-0.056) ng/mL HCG, Qual Meds: Medications Discontinued Medications Generic Name Dose Route Start Last Admin Trade Name Freq PRN Reason Stop Dose Admin Fentanyl 50 mcg 06/14/21 03:14 06/14/21 03:34 Fentanyl 100 Mcg/2 Ml Sdv IVPUSH 06/14/21 03:15 50 mcg ONETIME ONE Administration Fentanyl 50 mcg 06/14/21 04:02 Fentanyl 100 Mcg/2 Ml Sdv IVPUSH ONETIME PRN Pain Sodium Chloride 80 mls @ 3 mls/sec 06/14/21 04:30 06/14/21 04:46 Normal Saline IV 3 mls/sec ASDIRECTED KAELYN Administration Iopamidol 100 ml 06/14/21 04:22 06/14/21 04:46 Iopamidol 612 Mg/Ml 100 Ml Bottle IV 06/15/21 04:23 100 ml . DIRECTED PRN Administration RADIOLOGY EXAM Lorazepam 0.5 mg 06/14/21 03:14 06/14/21 03:34 Lorazepam 2 Mg/Ml Sdv IVPUSH 06/14/21 03:15 0.5 mg ONETIME ONE Administration Sodium Chloride 10 ml 06/14/21 04:22 06/14/21 04:46 Sodium Chloride 0.9% 10 Ml Syringe FLUSH 06/14/21 04:23 10 ml ONETIME ONE Administration Departure - Departure Time of Disposition: 06:31 (with male partner) Disposition: Home, Self-Care 01 Preliminary Cause of *Q: Sepsis & Multi System Organ Failure Clinical Impression: Fall, Left-sided back pain, Left bundle branch block (LBBB) determined by electrocardiography, Back pain - Discharge Information *PRESCRIPTION DRUG MONITORING PROGRAM REVIEWED*: No *COPY OF PRESCRIPTION DRUG MONITORING REPORT IN PATIENT PORTER: No Instructions: Acute Back Pain, Adult, Chronic Back Pain, [id number] Referrals: Chris Fisher Sr, MD [Primary Care Provider] - 2 Days Forms: ED Department Discharge Additional Instructions: Today you had laboratory studies including a CBC, BMP, test, EKG as well as a CAT scan of your C-spine, chest abdomen and pelvis. This is notable for mild anemia which you report previously. There are no signs of emergent traumatic findings as result of your recent reported fall. Please continue your current medications. Do not drive today. Follow-up with your primary care physician in 2 days for repeat assessment and consideration of long-term care for your pain and chronic pain syndromes. Sepsis Event Note (ED) - Evaluation Sepsis Screening Result: No Definite Risk - Focused Exam Vital Signs: Vital Signs Temp Pulse Resp BP Pulse Ox 06/14/21 02:53 36.4 C 80 18 116/70 98 - My Orders Last 24 Hours: My Active Orders 06/14/21 03:18 EKG 12 Lead [EK] Stat - Assessment/Plan Last 24 Hours: My Active Orders 06/14/21 03:18 EKG 12 Lead [EK] Stat
[2021-06-14] MEDS ORDERED: fentaNYL 100 MCG/2 ML SDV IVPUSH ONE (03:14)
[2021-06-14] MEDS ORDERED: LORazepam 2 MG/ML SDV IVPUSH ONE (03:14)
[2021-06-14] MEDS ORDERED: fentaNYL 100 MCG/2 ML SDV IVPUSH PRN (04:02)
[2021-06-14] MEDS ORDERED: Sodium Chloride 0.9% 10 ML Syringe FLUSH ONE (04:22)
[2021-06-14] MEDS ORDERED: Iopamidol 612 MG/ML 100 ML Bottle IV PRN (04:22)
[2021-06-14] MEDS ORDERED: Sodium Chloride 0.9% 80 ML IV SCH (04:30)
--- NOTE | 2021-06-14 05:47 | CRLCT ---
For Patients: As a result of the Century Cures Act, medical imaging exams and procedure reports are released immediately into your electronic medical record. You may view this report before your referring provider. If you have questions, please contact your health care provider. INDICATION: S/p fall from an 8 foot fence 3-4 days ago. Diffuse pain and soreness. COMPARISON: CT of the abdomen and pelvis from 10/29/2017 and report of the CT of the chest from 12/05/2016. TECHNIQUE: CT examination of the chest, abdomen, and pelvis was performed with the uneventful intravenous administration of 100 cc of Isovue-300 while 3 mm thick axial sections were obtained from above the apices of the lungs through the symphysis pubis. Oral contrast was not administered. Please note that all CT scans at this facility use dose modulation, iterative reconstruction, and/or weight-based dosing when appropriate to reduce radiation dose to as low as reasonably achievable. FINDINGS: : There is moderate patient respiratory motion throughout the lower chest and upper abdomen. Repeat CT scanning of the upper abdomen was performed, but the lower chest is incompletely examined because of the respiratory motion. I cannot exclude fracture of the sternum or manubrium. I cannot exclude rib fractures. In the chest, there is mild patchy and linear density in the posterior and lateral left lower lobe toward the lung base, consistent with scarring from previous inflammatory disease. The rest of the chest is clear. There is no sign of pneumothorax, pulmonary contusion, pleural effusion, or pleural hematoma. There is no sign of mediastinal or hilar mass or adenopathy. The heart is normal in appearance for the patient`s age. There is age appropriate appearance of the thoracic aorta and ascending great vessels. There is no sign of supraclavicular or axillary mass or adenopathy. In the abdomen, the liver is no longer seen to have fatty infiltration. The liver is normal in appearance. The spleen, pancreas, and adrenals are normal in appearance. The kidneys are normal in appearance. The gallbladder is normal in appearance. The abdominal aorta is normal in caliber with no sign of dilatation. There is no sign of retroperitoneal mass or adenopathy. The stomach, loops of small bowel, and colon in the abdomen are normal in appearance. In the pelvis, the appendix is normal in appearance with no sign of inflammatory process. The loops of small bowel and colon in the pelvis are normal in appearance. The uterus and adnexal regions are normal in appearance. The urinary bladder is normal in appearance. There is no sign of pelvic or inguinal mass or adenopathy. There is no sign of free air or free fluid in the abdomen or pelvis. There is mild wedging of the L1 vertebral body consistent with a mild compression fracture. The rest of the thoracic and lumbar vertebral bodies are normal in height, with no sign of any additional compression fractures. IMPRESSION: Moderate respiratory motion in the inferior chest and upper abdomen. Repeat scanning of the upper abdomen is performed, but areas of the mid and lower chest cannot be fully examined because of respiratory motion. CT of the chest shows no sign of acute injury to the lungs and no sign of any definite rib fractures. CT of the abdomen shows no sign of traumatic injury. Resolution of previously seen fatty infiltration of the liver. Normal CT of the pelvis with contrast. Please note that all CT scans at this facility use dose modulation, iterative reconstruction, and/or weight-based dosing when appropriate to reduce radiation dose to as low as reasonably achievable. Dictated by Rudy Venegas MD @ 06/14/2021 5:46:43 AM (Electronically Signed)
--- NOTE | 2021-06-14 05:51 | CRLCT ---
For Patients: As a result of the Century Cures Act, medical imaging exams and procedure reports are released immediately into your electronic medical record. You may view this report before your referring provider. If you have questions, please contact your health care provider. INDICATION: Diffuse pain after falling off an 8 foot fence 3-4 days ago. COMPARISON: None available TECHNIQUE: CT examination of the cervical spine is performed without contrast using spiral technique. 2 mm thick axial, sagittal and coronal reconstructions were made. Please note that all CT scans at this facility use dose modulation, iterative reconstruction, and/or weight-based dosing when appropriate to reduce radiation dose to as low as reasonably achievable. FINDINGS: : There is mild patient motion at the C6 through T1 level, resulting in misregistration artifact. There is reversal of the normal cervical lordosis which may be the result of muscular spasm or positioning for the examination. There is no sign of fracture or subluxation. The cervical vertebral bodies are normal in height and are in anatomic alignment. There is no sign of prevertebral soft tissue swelling. There is moderate C5-6 disc degenerative disease. The rest of the intervertebral discs are normal in height. The airway structures are normal in appearance. The visualized skull base is normal in appearance. The visualized inferior brain is normal in appearance for the patient`s age. The apices of the lungs are clear. IMPRESSION: Reversal of the normal cervical lordosis which may be the result of muscular spasm or positioning for the examination. No sign of acute osseous injury, although fine detail is limited in the inferior cervical spine from mild patient motion. Moderate C5-6 disc degenerative disease. Please note that all CT scans at this facility use dose modulation, iterative reconstruction, and/or weight-based dosing when appropriate to reduce radiation dose to as low as reasonably achievable. Dictated by Rudy Venegas MD @ 06/14/2021 5:51:05 AM (Electronically Signed)
== END 2021-06-14 06:20 | disposition home or self-care (01) ==
LOC: JP.ED 02:39
DX: M53.3 Sacrococcygeal disorders, not elsewhere classified (principal); I44.7 Left bundle-branch block, unspecified; J45.909 Unspecified asthma, uncomplicated; Z88.0 Allergy status to penicillin; Z79.82 Long term (current) use of aspirin; Z79.899 Other long term (current) drug therapy
CPT/HCPCS: 36415; 71260; 72125; 74177; 80048; 84484; 84703; 85025; 93005; 96374; 99284; J2060; J3010; Q9967; 96375

== ENCOUNTER 2021-06-20 13:05 | Emergency (ER) | payer MEDICAID ==
[2021-06-20 13:23] VITALS: BP 132/83; PULSE 101
[2021-06-20] MEDS ORDERED: Ketorolac 30 MG/ML SDV IM ONE (13:36)
--- NOTE | 2021-06-20 14:29 | EDM.PDOC ---
ED HPI GENERAL MEDICAL PROBLEM - General Chief Complaint: Lower Extremity Injury/Pain Stated Complaint: LEFT KNEE PAIN Time Seen by Provider: 06/20/21 13:22 Source of Information: Reports: Patient, Family, RN Notes Reviewed History Limitations: Reports: No Limitations - History of Present Illness INITIAL COMMENTS - FREE TEXT/NARRATIVE: Left knee pain unknown injury Left Knee Pain Score (Numeric/FACES): 10 - Related Data Allergies Allergy/AdvReac Type Severity Reaction Status Date / Time amoxicillin Allergy Hives Verified 06/14/21 02:50 Home Meds: Home Meds Gabapentin [Neurontin] 900 mg PO QID 08/17/16 [History] cloNIDine [Catapres] 0.1 mg PO QID 06/21/20 [History] EPINEPHrine [Epipen 2-Jorgito] 0.3 mg IJ ONETIME PRN #2 auto.injct 04/20/21 [Rx] Acetaminophen [Tylenol] 2 tab PO Q4H 06/14/21 [History] Aspirin [Clay Chewable Aspirin] 1 tab PO DAILY 06/14/21 [History] Past Medical History HEENT History: Reports: Hard of Hearing, Impaired Vision Cardiovascular History: Reports: Heart Murmur Respiratory History: Reports: Asthma [employer] History: Reports: , 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 Psychiatric History: Reports: Anxiety, PTSD Hematologic History: Reports: Blood Transfusion(s) - Infectious Disease History Infectious Disease History: Reports: Chicken Pox - Past Surgical History Musculoskeletal Surgical History: Reports: ORIF Other Musculoskeletal Surgeries/Procedures:: left leg Social & Family History - Family History Family Medical History: No Pertinent Family History - Tobacco Use Tobacco Use Status *Q: Current Every Day Tobacco User Years of Tobacco use: 6 Packs/Tins Daily: 0.5 - Caffeine Use Caffeine Use: Reports: Coffee Other Caffeine Use: patient not answering questions at this time - Recreational Drug Use Recreational Drug Use: No - Living Situation & Occupation Living situation: Reports: with Significant Other (lives at [facility], [place], [place].) Occupation: Unemployed Review of Systems - Review of Systems Review Of Systems: See Below Musculoskeletal: Reports: Joint Pain ED EXAM, GENERAL - Physical Exam Exam: See Below Free Text/Narrative:: Examination of the left knee appreciate some edema in the lower aspect below the patella there is tenderness along the joint line midline spine she will not tolerate any Course - Vital Signs Last Recorded V/S: Last Vital Signs Temp 96.8 F L 06/20/21 13:22 Pulse 101 H 06/20/21 13:22 Resp 16 06/20/21 13:22 BP 132/83 06/20/21 13:22 Pulse Ox 98 06/20/21 13:22 - Orders/Labs/Meds Orders: Active Orders 24 hr Category Date Time Status Knee 3V Lt [CR] Stat Exams 06/20/21 13:36 Ordered Meds: Medications Discontinued Medications Generic Name Dose Route Start Last Admin Trade Name Bhumi PRN Reason Stop Dose Admin Ketorolac Tromethamine 30 mg 06/20/21 13:36 06/20/21 13:41 Ketorolac 30 Mg/Ml Sdv IM 06/20/21 13:37 30 mg ONETIME ONE Administration Departure - Departure Time of Disposition: 14:29 Disposition: Home, Self-Care 01 Condition: Fair Clinical Impression: Left knee pain Qualifiers: Chronicity: acute Qualified Code(s): M25.562 - Pain in left knee - Discharge Information Instructions: Acute Knee Pain, Adult Referrals: Chris Fisher Sr, MD [Primary Care Provider] - Additional Instructions: The Ortho clinic will call you on Monday morning for an appointment time this week use your Toradol as needed for pain control Sepsis Event Note (ED) - Evaluation Sepsis Screening Result: No Definite Risk - Focused Exam Vital Signs: Vital Signs Temp Pulse Resp BP Pulse Ox 06/20/21 13:22 96.8 F L 101 H 16 132/83 98 - My Orders Last 24 Hours: My Active Orders 06/20/21 13:36 Knee 3V Lt [CR] Stat - Assessment/Plan Last 24 Hours: My Active Orders 06/20/21 13:36 Knee 3V Lt [CR] Stat Plan: Acuity = acute Site and laterality = left knee pain Etiology = unknown Manifestations = none Location of injury = Home Lab values = patient declined knee x-ray Plan Good improvement with Toradol prescription written for Toradol 10 mg 1 tab p.o. every 6 hours as needed total #30 consultation with orthopedics set up
== END 2021-06-20 14:37 | disposition home or self-care (01) ==
LOC: JP.ED 13:05
DX: M25.562 Pain in left knee (principal); Z88.0 Allergy status to penicillin; Z79.82 Long term (current) use of aspirin; Z72.0 Tobacco use
CPT/HCPCS: 96372; 99283; J1885

== ENCOUNTER 2021-11-07 11:40 | Emergency (ER) | payer MEDICAID ==
[2021-11-07 11:59] VITALS: BP 114/33; PULSE 69
== END 2021-11-07 14:42 | disposition home or self-care (01) ==
LOC: JP.ED 11:40
DX: O02.1 Missed abortion (principal); Z88.0 Allergy status to penicillin; Z79.82 Long term (current) use of aspirin; Z72.0 Tobacco use
CPT/HCPCS: 36415; 76815; 80053; 80305-QW; 81001; 84702; 85025; 99283; 99284-25

== ENCOUNTER 2022-01-21 03:15 | Emergency (ER) | payer MEDICAID ==
[2022-01-21 03:48] VITALS: BP 148/86; PULSE 88
== END 2022-01-21 04:28 | disposition home or self-care (01) ==
LOC: JP.ED 03:15
DX: S60.445A External constriction of left ring finger, initial encounter (principal); Z88.0 Allergy status to penicillin; Z79.82 Long term (current) use of aspirin; W22.09XA Striking against other stationary object, initial encounter
CPT/HCPCS: 99282; 99283

== ENCOUNTER 2022-09-12 11:53 | Emergency (ER) | payer MEDICAID ==
[2022-09-12] MEDS ORDERED: oxyCODONE 5 MG Tab PO ONE (13:27)
[2022-09-12 16:12] VITALS: BP 92/38; PULSE 59
== END 2022-09-12 16:44 | disposition home or self-care (01) ==
LOC: JP.ED 11:53
DX: G44.311 Acute post-traumatic headache, intractable (principal); J45.909 Unspecified asthma, uncomplicated; Z87.828 Personal history of other (healed) physical injury and trauma; Z72.0 Tobacco use; Z88.0 Allergy status to penicillin; Z91.030 Bee allergy status; Z98.890 Other specified postprocedural states
CPT/HCPCS: 70450; 99284; A9270

== ENCOUNTER 2022-09-17 10:46 | Emergency (ER) | payer MEDICAID ==
[2022-09-17 11:14] VITALS: BP 118/56; PULSE 85
[2022-09-17 11:50] LABS: CORONAVIRUS COVID-19 NAA NEGATIVE (NEGATIVE)
== END 2022-09-17 12:00 | disposition home or self-care (01) ==
LOC: JP.ED 10:46
DX: J10.1 Influenza due to other identified influenza virus with other respiratory manifestations (principal); F17.210 Nicotine dependence, cigarettes, uncomplicated; Z88.0 Allergy status to penicillin; Z91.030 Bee allergy status; Z20.822 Contact with and (suspected) exposure to COVID-19
CPT/HCPCS: 0241U; 99284

== ENCOUNTER 2022-10-12 10:07 | Emergency (ER) | payer OTHER, MEDICAID ==
[2022-10-12] MEDS ORDERED: Ketorolac 30 MG/ML SDV IM ONE (10:57)
[2022-10-12] MEDS ORDERED: niCARdipine HCl 25 MG in Sodium Chloride 0.9% 240 ML IV SCH (15:00)
[2022-10-12] MEDS ORDERED: Acetaminophen 325 MG Tab PO ONE (19:43)
[2022-10-12] MEDS ORDERED: Gabapentin 300 MG Cap PO ONE (19:43)
[2022-10-13] MEDS ORDERED: HYDROmorphone 0.5 MG/0.5 ML Syringe IVPUSH ONE (07:45)
[2022-10-13] MEDS ORDERED: Gabapentin 300 MG Cap PO ONE (10:02)
[2022-10-13] MEDS ORDERED: Acetaminophen 325 MG Tab PO ONE (10:03)
[2022-10-13 11:39] VITALS: BP 120/63; PULSE 66
== END 2022-10-13 11:39 ==
LOC: JP.ED 10:07
DX: S06.5XAA Traumatic subdural hemorrhage with loss of consciousness status unknown, initial encounter (principal); D50.9 Iron deficiency anemia, unspecified; G44.301 Post-traumatic headache, unspecified, intractable; F15.10 Other stimulant abuse, uncomplicated; F19.10 Other psychoactive substance abuse, uncomplicated; Z88.0 Allergy status to penicillin; Z91.030 Bee allergy status; Z79.899 Other long term (current) drug therapy
CPT/HCPCS: 36415; 70450; 80048; 80076; 80305; 80307; 81001; 81025; 85025; 96372; 99285; A9270; J1885

== ENCOUNTER 2022-12-03 17:31 | Emergency (ER) | payer MEDICAID ==
[2022-12-03 18:06] VITALS: BP 145/79; PULSE 79
[2022-12-03 18:49] LABS: ESTIMATED GFR 95 mL/min (>60)
== END 2022-12-03 20:29 | disposition home or self-care (01) ==
LOC: JP.ED 17:31
DX: R41.0 Disorientation, unspecified (principal); F15.10 Other stimulant abuse, uncomplicated; R74.8 Abnormal levels of other serum enzymes; J45.909 Unspecified asthma, uncomplicated; Z87.820 Personal history of traumatic brain injury; Z88.0 Allergy status to penicillin; Z91.030 Bee allergy status; Z79.899 Other long term (current) drug therapy
CPT/HCPCS: 36415; 70450; 80053; 80305-QW; 80307; 81001; 85025; 86140; 99285

== ENCOUNTER 2023-05-06 05:34 | Emergency (ER) | payer MEDICAID ==
[2023-05-06 05:47] VITALS: BP 149/86; PULSE 70
[2023-05-06 06:23] LABS: BASOPHILS ABSOLUTE AUTO 0.05 K/uL (0.00-0.10); BASOPHILS PERCENT AUTO 0.7 % (0.1-1.3); EOSINOPHILS ABSOLUTE AUTO 0.13 K/uL (0.00-0.40); EOSINOPHILS PERCENT AUTO 1.9 % (0.0-5.4); HEMATOCRIT 39.5 % (34.3-46.0); HEMOGLOBIN 12.7 g/dL (11.2-15.5); IMMATURE GRAN PERCENT AUTO 0.1 % (0.0-0.7); LYMPHOCYTES ABSOLUTE AUTO 2.67 K/uL (0.8-3.3); LYMPHOCYTES PERCENT AUTO 38.8 % (11.4-47.7); MEAN CORPUSCULAR HEMOGLOBIN 28.2 pg (31.6-35.5); MEAN CORPUSCULAR HGB CONC 32.2 g/dL (31.6-35.5); MEAN CORPUSCULAR VOLUME 87.6 fL (81.4-99.0); MONOCYTES ABSOLUTE AUTO 0.66 K/uL (0.20-0.90); MONOCYTES PERCENT AUTO 9.6 % (3.3-12.6); NEUTROPHILS ABSOLUTE AUTO 3.37 K/uL (1.0-7.6); NEUTROPHILS PERCENT AUTO 48.9 % (40.0-78.1); PLATELET COUNT,PLT 325 K/uL (130-375); RED BLOOD CELL COUNT 4.51 M/uL (3.77-5.24); WHITE BLOOD CELL COUNT,WBC 6.9 K/uL (3.2-11.0)
[2023-05-06 06:24] LABS: IMMATURE GRAN ABSOLUTE AUTO 0.01 K/uL (0.00-0.23)
[2023-05-06 06:28] LABS: BASE EXCESS VENOUS -0.3 mm/L; BICARBONATE,VENOUS 22.4 mmol/L; CARBOXYHEMOGLOBIN 2.3 % (0.0-1.6); METHEMOGLOBIN 1.1 %; O2 SATURATION VENOUS 87.2; OXYHEMOGLOBIN 84.2 %; PCO2 VENOUS 32.3 mm/Hg; PH,VENOUS 7.456 (7.350-7.450); PO2 VENOUS 50.5 mm/Hg; TOTAL HEMOGLOBIN 13.4 g/dL (12.0-16.0)
[2023-05-06 06:34] LABS: APPEARANCE,URINE SLIGHTLY CLOUDY (CLEAR); BILIRUBIN,URINE SMALL (NEGATIVE); COLOR,URINE YELLOW (YELLOW); GLUCOSE,URINE NEGATIVE (NEGATIVE); KETONES,URINE TRACE mg/dL (NEGATIVE); LEUKOCYTE ESTERASE,URINE TRACE (NEGATIVE); NITRITE,URINE NEGATIVE (NEGATIVE); OCCULT BLOOD,URINE TRACE-INTACT (NEGATIVE); PH,URINE 6.5 (5.0-8.0); PROTEIN,URINE 30 mg/dL (NEGATIVE)
[2023-05-06 06:38] LABS: AMPHETAMINES SCREEN, URINE PRESUMPTIVE POSITIVE (NEGATIVE); METHAMPHETAMINES SCREEN, URINE PRESUMPTIVE POSITIVE (NEGATIVE)
[2023-05-06 06:39] LABS: BARBITURATE SCREEN,URINE NEGATIVE (NEGATIVE); BENZODIAZEPINES SCREEN,URINE NEGATIVE (NEGATIVE); METHADONE SCREEN, URINE NEGATIVE (NEGATIVE); OXYCODONE SCREEN,URINE NEGATIVE (NEGATIVE); PROPOXYPHENE SCREEN,URINE NEGATIVE (NEGATIVE)
[2023-05-06 06:40] LABS: THC SCREEN,URINE 50 NG/ML PRESUMPTIVE POSITIVE (NEGATIVE)
[2023-05-06 06:41] LABS: CALCIUM 8.2 mg/dL (8.5-10.1); CREATININE 0.8 mg/dL (0.6-1.0); EST CRCL DRUG DOSING (CG) 82.43 mL/min; MAGNESIUM 1.8 mg/dL (1.8-2.4); POTASSIUM,K 3.4 mmol/L (3.6-5.2)
[2023-05-06 06:43] LABS: AMORPHOUS SEDIMENT,URINE MODERATE; BACTERIA,URINE FEW; EPITHELIAL CELLS,URINE MODERATE; MUCUS,URINE RARE; RBC,URINE 0-5 (0-5); WBC,URINE 0-5 (0-5)
[2023-05-06 06:44] LABS: ANION GAP 13.4 mmol/L (5.0-14.0)
[2023-05-06 07:24] LABS: FOLIC ACID 8.1 ng/ml (8.6-58.9); TSH ULTRASENSITIVE 1.203 uIU/mL (0.358-3.740)
== END 2023-05-06 07:06 | disposition home or self-care (01) ==
LOC: JP.ED 05:34
DX: R20.0 Anesthesia of skin (principal); R20.2 Paresthesia of skin; F41.0 Panic disorder [episodic paroxysmal anxiety]; F15.10 Other stimulant abuse, uncomplicated; R06.4 Hyperventilation; J45.909 Unspecified asthma, uncomplicated; Z72.0 Tobacco use; Z88.0 Allergy status to penicillin; Z91.030 Bee allergy status
CPT/HCPCS: 36415; 71045; 71045-26; 80048; 80305-QW; 80307; 81001; 82607; 82746; 82803; 82947; 83735; 84443; 85025; 99284

== ENCOUNTER 2023-05-30 23:44 | Emergency (ER) | payer MEDICAID ==
[2023-05-30] MEDS ORDERED: diphenhydrAMINE 50 MG/ML SDV IM ONE (23:49)
[2023-05-30] MEDS ORDERED: methylPREDNISolone Sodium Succinate 125 MG/2 ML SDV IM ONE (23:50)
[2023-05-31 01:14] VITALS: BP 134/59; PULSE 85
[2023-05-31] MEDS ORDERED: diphenhydrAMINE 50 MG/ML SDV IVPUSH ONE (01:59)
[2023-05-31] MEDS ORDERED: methylPREDNISolone Sodium Succinate 125 MG/2 ML SDV IVPUSH ONE (02:00)
== END 2023-05-31 01:29 | disposition home or self-care (01) ==
LOC: JP.ED 23:44
DX: T63.441A Toxic effect of venom of bees, accidental (unintentional), initial encounter (principal); J45.909 Unspecified asthma, uncomplicated; F17.210 Nicotine dependence, cigarettes, uncomplicated; Z91.030 Bee allergy status; Z79.899 Other long term (current) drug therapy; Z88.0 Allergy status to penicillin
CPT/HCPCS: 96374; 96375; 99282; J1200; J2930

== ENCOUNTER 2023-08-07 12:32 | Emergency (ER) | payer MEDICAID ==
[2023-08-07 12:46] VITALS: BP 143/65; PULSE 83
== END 2023-08-07 13:10 | disposition home or self-care (01) ==
LOC: JP.ED 12:32
DX: S60.445A External constriction of left ring finger, initial encounter (principal); Z91.030 Bee allergy status; Z88.0 Allergy status to penicillin; Z79.899 Other long term (current) drug therapy; W49.04XA Ring or other jewelry causing external constriction, initial encounter
CPT/HCPCS: 99283

== ENCOUNTER 2023-09-07 16:10 | Emergency (ER) | payer MEDICAID ==
[2023-09-07 16:33] LABS: HEMATOCRIT 38.5 % (34.3-46.0); MEAN CORPUSCULAR HGB CONC 31.2 g/dL (31.6-35.5); MEAN CORPUSCULAR VOLUME 89.7 fL (81.4-99.0); RED BLOOD CELL COUNT 4.29 M/uL (3.77-5.24); WHITE BLOOD CELL COUNT,WBC 4.6 K/uL (3.2-11.0)
[2023-09-07] MEDS ORDERED: fentaNYL 100 MCG/2 ML SDV IM ONE (16:41)
[2023-09-07 16:42] VITALS: BP 131/74; PULSE 48
[2023-09-07 16:54] LABS: A/G RATIO 0.9 (1.2-2.2); ALANINE AMINOTRANSFERASE,ALT 188 U/L (12-78); ALBUMIN 3.3 g/dL (3.4-5.0); ALKALINE PHOSPHATASE 188 U/L (46-116); ASPARTATE AMNIOTRANSFERASE,AST 132 U/L (15-37); BILIRUBIN TOTAL 0.4 mg/dL (0.2-1.0); BLOOD UREA NITROGEN,BUN 5 mg/dL (7-18); C-REACTIVE PROTEIN 0.57 mg/dL (0.0-0.3); CALCIUM 8.2 mg/dL (8.5-10.1); CARBON DIOXIDE,CO2 25 mmol/L (21-32); CHLORIDE,CL 108 mmol/L (100-108); CREATININE 0.7 mg/dL (0.6-1.0); EST CRCL DRUG DOSING (CG) 94.21 mL/min; ESTIMATED GFR 111 mL/min (>60); GLUCOSE RANDOM 94 mg/dL (74-106); POTASSIUM,K 3.4 mmol/L (3.6-5.2); PROTEIN TOTAL,TP 6.9 g/dL (6.4-8.2); SODIUM,NA 143 mmol/L (140-148)
[2023-09-07 17:03] LABS: ANION GAP 13.4 mmol/L (5.0-14.0)
== END 2023-09-07 17:52 | disposition home or self-care (01) ==
LOC: JP.ED 16:10
DX: R51.9 Headache, unspecified (principal); Z88.0 Allergy status to penicillin; Z79.899 Other long term (current) drug therapy; Z91.030 Bee allergy status
CPT/HCPCS: 36415; 70450; 80053; 83605; 85027; 86140; 96372; 99283; 99284; J3010

== ENCOUNTER 2024-04-30 10:23 | Emergency (ER) | payer MEDICAID ==
[2024-04-30 10:40] VITALS: BP 116/57; PULSE 79
[2024-04-30 11:07] LABS: BASOPHILS ABSOLUTE AUTO 0.03 K/uL (0.00-0.10); BASOPHILS PERCENT AUTO 0.5 % (0.1-1.3); EOSINOPHILS ABSOLUTE AUTO 0.14 K/uL (0.00-0.40); EOSINOPHILS PERCENT AUTO 2.4 % (0.0-5.4); HEMATOCRIT 33.8 % (34.3-46.0); HEMOGLOBIN 10.6 g/dL (11.2-15.5); IMMATURE GRAN PERCENT AUTO 0.3 % (0.0-0.7); LYMPHOCYTES ABSOLUTE AUTO 1.62 K/uL (0.8-3.3); LYMPHOCYTES PERCENT AUTO 28.1 % (11.4-47.7); MEAN CORPUSCULAR HEMOGLOBIN 24.8 pg (31.6-35.5); MEAN CORPUSCULAR HGB CONC 31.4 g/dL (31.6-35.5); MEAN CORPUSCULAR VOLUME 79.2 fL (81.4-99.0); MONOCYTES ABSOLUTE AUTO 0.47 K/uL (0.20-0.90); MONOCYTES PERCENT AUTO 8.1 % (3.3-12.6); NEUTROPHILS ABSOLUTE AUTO 3.49 K/uL (1.0-7.6); NEUTROPHILS PERCENT AUTO 60.6 % (40.0-78.1); PLATELET COUNT,PLT 306 K/uL (130-375); RED BLOOD CELL COUNT 4.27 M/uL (3.77-5.24); WHITE BLOOD CELL COUNT,WBC 5.8 K/uL (3.2-11.0)
[2024-04-30] MEDS ORDERED: Sodium Chloride 0.9% 10 ML Syringe FLUSH ONE (11:13)
[2024-04-30] MEDS ORDERED: Iopamidol 612 MG/ML 100 ML Bottle IV SCH (11:15)
[2024-04-30] MEDS ORDERED: Sodium Chloride 0.9% 100 ML IV SCH (11:15)
[2024-04-30 11:19] LABS: IMMATURE GRAN ABSOLUTE AUTO 0.02 K/uL (0.00-0.23)
[2024-04-30 11:28] LABS: A/G RATIO 0.9 (1.2-2.2); ALANINE AMINOTRANSFERASE,ALT 141 U/L (12-78); ALBUMIN 3.2 g/dL (3.4-5.0); ALKALINE PHOSPHATASE 214 U/L (46-116); ASPARTATE AMNIOTRANSFERASE,AST 284 U/L (15-37); BILIRUBIN TOTAL 0.7 mg/dL (0.2-1.0); BLOOD UREA NITROGEN,BUN 6 mg/dL (7-18); CALCIUM 8.4 mg/dL (8.5-10.1); CARBON DIOXIDE,CO2 27 mmol/L (21-32); CHLORIDE,CL 105 mmol/L (100-108); CREATININE 0.9 mg/dL (0.6-1.0); EST CRCL DRUG DOSING (CG) 73.99 mL/min; ESTIMATED GFR 81 mL/min (>60); GLUCOSE RANDOM 85 mg/dL (74-106); POTASSIUM,K 3.4 mmol/L (3.6-5.2); PROTEIN TOTAL,TP 6.9 g/dL (6.4-8.2); SODIUM,NA 142 mmol/L (140-148)
[2024-04-30 11:34] LABS: ANION GAP 13.4 mmol/L (5.0-14.0)
== END 2024-04-30 12:25 | disposition home or self-care (01) ==
LOC: JP.ED 10:23
DX: K21.9 Gastro-esophageal reflux disease without esophagitis (principal); J45.909 Unspecified asthma, uncomplicated; F17.210 Nicotine dependence, cigarettes, uncomplicated; Z79.899 Other long term (current) drug therapy; Z88.0 Allergy status to penicillin; Z91.030 Bee allergy status
CPT/HCPCS: 36415; 70360; 70360-26; 71046; 71046-26; 80053; 85025; 86140; 99284

== ENCOUNTER 2024-05-27 14:49 | Emergency (ER) | payer MEDICAID | END 2024-05-27 15:09 | disposition left against medical advice (07) | LOC: JP.ED 14:49 | DX: Z53.21 Procedure and treatment not carried out due to patient leaving prior to being seen by health care provider (principal) ==

== ENCOUNTER 2024-07-24 11:14 | Emergency (ER) | payer MEDICAID ==
[2024-07-24 11:23] VITALS: BP 119/57; PULSE 59
[2024-07-24] MEDS: Acetaminophen/HYDROcodone 325-5 MG Tab PO ONE (11:53)
== END 2024-07-24 12:00 | disposition home or self-care (01) ==
LOC: JP.ED 11:14
DX: R51.9 Headache, unspecified (principal); J45.909 Unspecified asthma, uncomplicated; Z79.899 Other long term (current) drug therapy; Z87.891 Personal history of nicotine dependence; Z88.0 Allergy status to penicillin; Z91.030 Bee allergy status
CPT/HCPCS: 99283; A9270

== ENCOUNTER 2024-11-18 16:29 | Emergency (ER) | payer MEDICAID ==
[2024-11-18 17:34] LABS: CORONAVIRUS COVID-19 NAA NEGATIVE (NEGATIVE); INFLUENZA A NAA NEGATIVE (NEGATIVE); INFLUENZA B NAA NEGATIVE (NEGATIVE); RESPIRATORY SYNCYTIAL VIR NAA NEGATIVE (NEGATIVE)
[2024-11-18] MEDS: Ketorolac 30 MG/ML SDV IM ONE (17:50)
[2024-11-18] MEDS: fentaNYL 100 MCG/2 ML SDV IM ONE (18:49)
[2024-11-18 19:03] VITALS: BP 150/67; PULSE 49
== END 2024-11-18 19:40 | disposition home or self-care (01) ==
LOC: JP.ED 16:29
DX: R51.9 Headache, unspecified (principal); J45.909 Unspecified asthma, uncomplicated; F17.210 Nicotine dependence, cigarettes, uncomplicated; Z88.0 Allergy status to penicillin; Z91.030 Bee allergy status; Z79.899 Other long term (current) drug therapy
CPT/HCPCS: 0241U; 70450; 96372; 99284; J1885; J3010

== ENCOUNTER 2024-12-10 23:43 | Emergency (ER) | payer MEDICAID ==
[2024-12-10 23:48] VITALS: BP 129/74; PULSE 82
== END 2024-12-11 00:13 | disposition home or self-care (01) ==
LOC: JP.ED 23:43
DX: S09.90XA Unspecified injury of head, initial encounter (principal); Z79.899 Other long term (current) drug therapy; Z88.0 Allergy status to penicillin; Z91.030 Bee allergy status; W19.XXXA Unspecified fall, initial encounter
CPT/HCPCS: 99283

== ENCOUNTER 2025-03-13 11:54 | Emergency (ER) | payer MEDICAID ==
[2025-03-13 12:08] VITALS: BP 118/79; PULSE 74
[2025-03-13] MEDS ORDERED: Ketorolac 30 MG/ML SDV IM ONE (12:13)
== END 2025-03-13 12:40 | disposition left against medical advice (07) ==
LOC: JP.ED 11:54
DX: M54.50 Low back pain, unspecified (principal); J45.909 Unspecified asthma, uncomplicated; Z79.899 Other long term (current) drug therapy; Z91.030 Bee allergy status; Z88.0 Allergy status to penicillin
CPT/HCPCS: 99283

== ENCOUNTER 2025-03-14 21:03 | Emergency (ER) | payer MEDICAID ==
[2025-03-14] MEDS: Methocarbamol 500 MG Tab PO ONE (22:06)
[2025-03-14 22:14] VITALS: BP 116/64; PULSE 83
== END 2025-03-14 22:13 | disposition home or self-care (01) ==
LOC: JP.ED 21:03
DX: M62.830 Muscle spasm of back (principal); J45.909 Unspecified asthma, uncomplicated; Z88.0 Allergy status to penicillin; Z91.030 Bee allergy status; Z79.899 Other long term (current) drug therapy; Z79.51 Long term (current) use of inhaled steroids
CPT/HCPCS: 99283; A9270